=== PATIENT | male | born 1940 | race Caucasian/White ===

== ENCOUNTER → 2016-10-29 | Outpatient (CLI) | payer MEDICARE, BC ==
[2016-10-29 09:44] LABS: Anion Gap 12 mmol/L; Calcium 9.1 mg/dL (8.4-10.2); Carbon Dioxide 21 mmol/L (22-30); Chloride 109 mmol/L (98-107); Cholesterol 127 mg/dL (<200); Glucose 131 mg/dL (74-99); HDL Cholesterol 28 mg/dL (40-60); Non-African American GFR(MDRD) >60 (>60 ml/min/1.73 sqM); Sodium 142 mmol/L (137-145); Total Protein 7.3 g/dL (6.3-8.2); Triglycerides 121 mg/dL (<150)
[2016-10-29 09:51] LABS: ALT 34 U/L (21-72); Blood Urea Nitrogen 15 mg/dL (9-20); Potassium 4.2 mmol/L (3.5-5.1)
[2016-10-29 09:52] LABS: AST 27 U/L (17-59); Alkaline Phosphatase 101 U/L (38-126)
== END | disposition home or self-care (01) ==
LOC: LABWHC1 08:25
PROVIDERS: ATTEND Internal Medicine Interventional Cardiology
DX: E78.2 Mixed hyperlipidemia (principal)
CPT/HCPCS: 36415; 80053; 80061

== ENCOUNTER 2017-03-10 07:51 | Day surgery (SDC) | payer MEDICARE, BC ==
[2017-03-08 15:41] VITALS: BMI 48.4
[~2017-03-10 07:51] MED LIST: LACTATED RINGERS 1,000 ML IV SCH
[2017-03-10] MEDS ORDERED: LACTATED RINGERS 1,000 ML IV ONE (08:17)
[2017-03-10 08:23] VITALS: RESP 18; TEMP 98.1
[2017-03-10 08:35] LABS: Glucose,Whole Blood 118 mg/dL (75-99)
[2017-03-10] MEDS ORDERED: PROPOFOL 10 MG/ML 20 ML VIAL IV ONE ×2 (08:37→09:39)
[2017-03-10] MEDS ORDERED: LIDOCAINE 1% INJ 10MG/ML (20 ML MDV) ONE (08:37)
--- NOTE | 2017-03-10 08:38 | P.GSHP ---
History of Present Illness H&P Date: 03/10/17 CHIEF COMPLAINT: Colon screen HISTORY OF PRESENT ILLNESS: The patient is a 76-year-old male who presents for colon screen. Lower endoscopy was offered for further evaluation and management. PAST MEDICAL HISTORY: Please see list. PAST SURGICAL HISTORY: Please see list. MEDICATIONS: Please see list. ALLERGIES: Please see list. SOCIAL HISTORY: No illicit drug use FAMILY HISTORY: No reports of Crohn disease or ulcerative colitis. REVIEW OF ORGAN SYSTEMS: CONSTITUTIONAL: No reports of fevers or chills. PHYSICAL EXAM: VITAL SIGNS: Stable GENERAL: Well-developed pleasant in no acute distress. HEENT: No scleral icterus. Extraocular movements grossly intact. Moist buccal mucosa. NECK: Supple without lymphadenopathy. CHEST: Unlabored respirations. Equal bilateral excursions. CARDIOVASCULAR: Regular rate and rhythm. Distal 2+ pulses. ABDOMEN: Soft, nontender, nondistended. MUSCULOSKELETAL: No clubbing, cyanosis, or edema. ASSESSMENT: 1. Colon screen. PLAN: 1. Recommend proceeding with a lower endoscopy Past Medical History Past Medical History: COPD, Diabetes Mellitus, Pneumonia, Prostate Disorder, Sleep Apnea/CPAP/BIPAP Additional Past Medical History / Comment(s): USES O2 [place] PRN, leaky hearrt valve , rt inguinal hernia, History of Any Multi-Drug Resistant Organisms: None Reported Past Surgical History: Cholecystectomy, Hernia Repair, Joint Replacement, Tonsillectomy Additional Past Surgical History / Comment(s): LEFT KNEE replacement Past Anesthesia/Blood Transfusion Reactions: No Reported Reaction Smoking Status: Former smoker - Past Family History Mother Family Medical History: Cancer Additional Family Medical History / Comment(s): BRAIN Medications and Allergies Home Medications Medication Instructions Recorded Confirmed Type Albuterol Sulfate [Proventil Hfa] 2 puff INHALATION DIRECTED PRN 11/22/14 History Aspirin 81 mg PO DAILY 11/22/14 03/10/17 History Budesonide-Formot 160-4.5 Mcg 2 puff INHALATION DAILY PRN 11/22/14 03/10/17 History [Symbicort 160-4.5 Mcg Inhaler] Diltiazem HCl 120 mg PO DAILY 11/22/14 03/10/17 History Finasteride [Proscar] 5 mg PO DAILY 11/22/14 03/10/17 History Furosemide [Lasix] 40 mg PO DAILY 11/22/14 03/10/17 History Multivitamins, Thera [Multivitamin] 1 tab PO DAILY 11/22/14 03/10/17 History Tiotropium [place] [Spiriva] 1 applic INHALATION DAILY 11/22/14 03/10/17 History Atorvastatin [Lipitor] 20 mg PO DAILY 03/08/17 03/10/17 History Glucosam/Wil[place]-Msm1/C/Storm/Bosw 1 each PO DAILY 03/08/17 03/10/17 History [Glucosamine-Chondroitin Tablet] Mv-Mn/C/Glutamin/Lysin/[id number] 1 each PO DAILY 03/08/17 03/10/17 History [Airborne Gummies] metFORMIN HCL [Glucophage] 1,000 mg PO W/SUPPER 03/08/17 03/10/17 History Allergies Allergy/AdvReac Type Severity Reaction Status Date / Time No Known Allergies Allergy Verified 03/10/17 08:25 Surgical - Exam Vital Signs Temp Pulse Resp BP Pulse Ox 98.1 F 80 18 182/80 91 L 03/10/17 08:22 03/10/17 08:22 03/10/17 08:22 03/10/17 08:22 03/10/17 08:22 Results - Labs Abnormal Lab Results - Last 24 Hours (Table) 03/10/17 Range/Units 08:28 POC Glucose (mg/dL) 118 H (75-99) mg/dL
--- NOTE | 2017-03-10 09:03 | P.PCN ---
Date of Procedure: 03/10/17 Description of Procedure: PREOPERATIVE DIAGNOSIS: Colonoscopy screening. POSTOPERATIVE DIAGNOSIS: Colonoscopy screening. Multiple tubular adenomas throughout the colon. External hemorrhoids, grade 2. Sigmoid diverticulosis with active diverticulitis. Lipoma along the left buttock, 3 cm. OPERATION:AC Colonoscopy to the ileocecal valve and appendiceal orifice. Colonoscopy with multiple snare polypectomies. SURGEON: Larisa Rodriguez MD. ANESTHESIA: MAC. INDICATIONS: The patient is a 76-year-old male who presents for colonoscopy screening. Benefits and risks were described and informed consent was obtained. DESCRIPTION OF PROCEDURE: The patient had undergone Gatorade, MiraLAX and Dulcolax prep. He had been brought into the operating room and laid in the left lateral decubitus position. After adequate intravenous sedation, the rectum was examined with 2% lidocaine jelly. External hemorrhoids were encountered. An external lipoma along the gluteal cleft left side was found of 3 cm in size along the subcutaneous tissue. The prostate was smooth and within normal limits. The rectal tone was within normal limits. No lesions were palpated in the rectal vault. An Olympus colonoscope was advanced until the ileocecal valve and appendiceal orifice were clearly viewed. The prep was fair with visualization of the mucosal folds. Large-mouth sigmoid diverticulosis with resolving acute diverticulitis was found. Large tubular adenoma of 1.5-2 cm with snare polypectomy to completion on the ascending colon along its stalk. A 5 mm adenoma was also snare polypectomy along the ascending colon to completion. The colon was desufflated. The patient had tolerated the procedure well. Withdrawal time was over 6 minutes. FINDINGS: External hemorrhoids, grade 2. Lipoma along the left gluteal cuff, 3 cm. No arteriovenous malformations. Acute resolving sigmoid diverticulitis. Removal of 2 polyps from the proximal, mid transverse colon and descending colon : - Large tubular adenoma of 1.5-2 cm with snare polypectomy to completion on the ascending colon along its stalk. - A 5 mm adenoma was also snare polypectomy along the ascending colon to completion. RECOMMENDATIONS: Repeat colonoscopy in one year, 2018. Ciprofloxacin and Flagyl for diverticulitis. Plan - Discharge Summary New Discharge Prescriptions: No Action Tiotropium [place] [Spiriva] 1 applic INHALATION DAILY Multivitamins, Thera [Multivitamin] 1 tab PO DAILY Furosemide [Lasix] 40 mg PO DAILY Finasteride [Proscar] 5 mg PO DAILY Diltiazem HCl 120 mg PO DAILY Budesonide-Formot 160-4.5 Mcg [Symbicort 160-4.5 Mcg Inhaler] 2 puff INHALATION DAILY PRN PRN Reason: Shortness Of Breath Aspirin 81 mg PO DAILY Albuterol Sulfate [Proventil Hfa] 2 puff INHALATION DIRECTED PRN PRN Reason: Shortness Of Breath metFORMIN HCL [Glucophage] 1,000 mg PO W/SUPPER Glucosam/Wilver-Msm1/C/Storm/Bosw [Glucosamine-Chondroitin Tablet] 1 each PO DAILY Atorvastatin [Lipitor] 20 mg PO DAILY Mv-Mn/C/Glutamin/Lysin/[id number] [Airborne Gummies] 1 each PO DAILY Discharge Medication List Albuterol Sulfate [Proventil Hfa] 2 puff INHALATION DIRECTED PRN 11/22/14 [ History] Aspirin 81 mg PO DAILY 11/22/14 [History] Budesonide-Formot 160-4.5 Mcg [Symbicort 160-4.5 Mcg Inhaler] 2 puff INHALATION DAILY PRN 11/22/14 [History] Diltiazem HCl 120 mg PO DAILY 11/22/14 [History] Finasteride [Proscar] 5 mg PO DAILY 11/22/14 [History] Furosemide [Lasix] 40 mg PO DAILY 11/22/14 [History] Multivitamins, Thera [Multivitamin] 1 tab PO DAILY 11/22/14 [History] Tiotropium [place] [Spiriva] 1 applic INHALATION DAILY 11/22/14 [History] Atorvastatin [Lipitor] 20 mg PO DAILY 03/08/17 [History] Glucosam/[place]-Msm1/C/Storm/Bosw [Glucosamine-Chondroitin Tablet] 1 each PO DAILY 03/08/17 [History] Mv-Mn/C/Glutamin/Lysin/[id number] [Airborne Gummies] 1 each PO DAILY 03/08/17 [ History] metFORMIN HCL [Glucophage] 1,000 mg PO W/SUPPER 03/08/17 [History]
[2017-03-10 09:24] VITALS: BP 158/77; PULSE 67
== END 2017-03-10 09:55 | disposition home or self-care (01) ==
LOC: ORWHC2ENDO 07:51
PROVIDERS: ATTEND Surgery Plastic and Reconstructive Surgery
DX: Z12.11 Encounter for screening for malignant neoplasm of colon (principal); D12.2 Benign neoplasm of ascending colon; K57.30 Diverticulosis of large intestine without perforation or abscess without bleeding; K64.1 Second degree hemorrhoids; D17.1 Benign lipomatous neoplasm of skin and subcutaneous tissue of trunk; I10 Essential (primary) hypertension; E78.5 Hyperlipidemia, unspecified; J44.9 Chronic obstructive pulmonary disease, unspecified; G47.33 Obstructive sleep apnea (adult) (pediatric); N40.0 Benign prostatic hyperplasia without lower urinary tract symptoms; E11.9 Type 2 diabetes mellitus without complications; Z79.84 Long term (current) use of oral hypoglycemic drugs; K21.9 Gastro-esophageal reflux disease without esophagitis; Z87.891 Personal history of nicotine dependence; Z79.82 Long term (current) use of aspirin; Z79.51 Long term (current) use of inhaled steroids; Z79.899 Other long term (current) drug therapy
CPT/HCPCS: 88305; 45385; J2001; J2704

== ENCOUNTER → 2017-10-25 | Outpatient (CLI) | payer MEDICARE, BC ==
[2017-10-25 08:53] LABS: ALT 32 U/L (21-72); AST 25 U/L (17-59); Albumin 4.2 g/dL (3.5-5.0); Alkaline Phosphatase 108 U/L (38-126); Anion Gap 13 mmol/L; Blood Urea Nitrogen 13 mg/dL (9-20); Calcium 8.9 mg/dL (8.4-10.2); Carbon Dioxide 25 mmol/L (22-30); Chloride 106 mmol/L (98-107); Cholesterol 100 mg/dL (<200); Glucose 110 mg/dL (74-99); HDL Cholesterol 27 mg/dL (40-60); LDL Cholesterol,Calculated 57 mg/dL (0-99); Potassium 4.2 mmol/L (3.5-5.1); Sodium 144 mmol/L (137-145); Total Bilirubin 0.8 mg/dL (0.2-1.3); Total Protein 6.9 g/dL (6.3-8.2); Triglycerides 80 mg/dL (<150)
== END | disposition home or self-care (01) ==
LOC: LABWHC1 08:05
PROVIDERS: ATTEND Internal Medicine Interventional Cardiology
DX: E78.2 Mixed hyperlipidemia (principal)
CPT/HCPCS: 36415; 80053; 80061

== ENCOUNTER 2018-05-25 07:49 | Day surgery (SDC) | payer MEDICARE, BC ==
[2018-05-20 15:18] VITALS: BMI 50.0
[~2018-05-25 07:49] MED LIST changes: +LIDOCAINE 1% 20 ML VIAL (10MG/ML) FOR IV START INTRADERMA PRN
[2018-05-25 08:23] VITALS: RESP 16; TEMP 97.2
[2018-05-25 08:39] LABS: Glucose,Whole Blood 142 mg/dL (75-99)
--- NOTE | 2018-05-25 08:45 | P.GSHP ---
History of Present Illness H&P Date: 05/25/18 CHIEF COMPLAINT: Colon screen HISTORY OF PRESENT ILLNESS: The patient is a 77-year-old male who presents for colon screen. Lower endoscopy was offered for further evaluation and management. PAST MEDICAL HISTORY: Please see list. PAST SURGICAL HISTORY: Please see list. MEDICATIONS: Please see list. ALLERGIES: Please see list. SOCIAL HISTORY: No illicit drug use FAMILY HISTORY: No reports of Crohn disease or ulcerative colitis. REVIEW OF ORGAN SYSTEMS: CONSTITUTIONAL: No reports of fevers or chills. PHYSICAL EXAM: VITAL SIGNS: Stable GENERAL: Well-developed pleasant in no acute distress. HEENT: No scleral icterus. Extraocular movements grossly intact. Moist buccal mucosa. NECK: Supple without lymphadenopathy. CHEST: Unlabored respirations. Equal bilateral excursions. CARDIOVASCULAR: Regular rate and rhythm. Distal 2+ pulses. ABDOMEN: Soft, nontender, nondistended. MUSCULOSKELETAL: No clubbing, cyanosis, or edema. ASSESSMENT: 1. Colon screen. PLAN: 1. Recommend proceeding with a lower endoscopy Past Medical History Past Medical History: COPD, Diabetes Mellitus, Pneumonia, Prostate Disorder, Sleep Apnea/CPAP/BIPAP Additional Past Medical History / Comment(s): USES O2 [place] PRN, leaky heart valve , rt inguinal hernia, has cpap History of Any Multi-Drug Resistant Organisms: None Reported Past Surgical History: Cholecystectomy, Hernia Repair, Joint Replacement, Tonsillectomy Additional Past Surgical History / Comment(s): LEFT KNEE replacement, [place] cataract Past Anesthesia/Blood Transfusion Reactions: No Reported Reaction Smoking Status: Former smoker - Past Family History Mother Family Medical History: Cancer Additional Family Medical History / Comment(s): BRAIN Medications and Allergies Home Medications Medication Instructions Recorded Confirmed Type Albuterol Sulfate [Proventil Hfa] 2 puff INHALATION DIRECTED PRN 11/22/1411/05 History Budesonide-Formot 160-4.5 Mcg 2 puff INHALATION DAILY PRN 11/22/14 05/25/18 History [Symbicort 160-4.5 Mcg Inhaler] Diltiazem HCl 120 mg PO DAILY 11/22/14 05/25/18 History Finasteride [Proscar] 5 mg PO DAILY 11/22/14 05/25/18 History Furosemide [Lasix] 40 mg PO DAILY 11/22/14 05/25/18 History Multivitamins, Thera [Multivitamin] 1 tab PO DAILY 11/22/14 05/25/18 History Tiotropium [place] [Spiriva] 1 applic INHALATION DAILY 11/22/14 05/25/18 History Atorvastatin [Lipitor] 20 mg PO DAILY 03/08/17 05/25/18 History Glucosam/[place]-Msm1/C/Storm/Bosw 1 each PO DAILY 03/08/17 05/25/18 History [Glucosamine-Chondroitin Tablet] Mv-Mn/C/Glutamin/Lysin/Bkhv709 1 each PO DAILY 03/08/17 05/25/18 History [Airborne Gummies] metFORMIN HCL [Glucophage] 1,000 mg PO W/SUPPER 03/08/17 05/25/18 History Allergies Allergy/AdvReac Type Severity Reaction Status Date / Time No Known Allergies Allergy Verified 05/25/18 08:20 Surgical - Exam Vital Signs Temp Pulse Resp BP Pulse Ox 97.2 F L 66 16 138/61 94 L 05/25/18 08:20 05/25/18 08:20 05/25/18 08:20 05/25/18 08:20 05/25/18 08:20 Results - Labs Abnormal Lab Results - Last 24 Hours (Table) 05/25/18 Range/Units 08:38 POC Glucose (mg/dL) 142 H (75-99) mg/dL
[2018-05-25] MEDS ORDERED: PROPOFOL 10 MG/ML 20 ML VIAL IV ONE (08:52)
--- NOTE | 2018-05-25 09:25 | P.PCN ---
Date of Procedure: 05/25/18 Description of Procedure: PREOPERATIVE DIAGNOSIS: History of high-risk colon polyps POSTOPERATIVE DIAGNOSIS: History of high-risk colon polyps Multiple tubular adenomas throughout the colon. External hemorrhoids, grade 2. Sigmoid diverticulosis with active diverticulitis. Lipoma along the left buttock, 3 cm. OPERATION:AC Colonoscopy to the ileocecal valve Colonoscopy with hot snare polypectomy, ascending colon Colonoscopy with cold forceps biopsy, sigmoid colon SURGEON: Larisa Rodriguez MD. ANESTHESIA: MAC. INDICATIONS: The patient is a 77-year-old male who presents with high-risk large adenoma 1 year ago. He now presents for surveillance. Benefits and risks were described and informed consent was obtained. DESCRIPTION OF PROCEDURE: The patient had undergone Gatorade, MiraLAX and Dulcolax prep. He had been brought into the operating room and laid in the left lateral decubitus position. After adequate intravenous sedation, the rectum was examined with 2% lidocaine jelly. External hemorrhoids were encountered. An external lipoma along the gluteal cleft left side was found of 3 cm in size along the subcutaneous tissue. The prostate was smooth and within normal limits. The rectal tone was within normal limits. No lesions were palpated in the rectal vault. An Olympus colonoscope was advanced until the ileocecal valve was clearly viewed. The prep was fair with visualization of the mucosal folds. Large-mouth sigmoid diverticulosis with resolving acute diverticulitis was found. Tubular adenoma of 8mm was hot snare polypectomy to completion at the ascending colon. A 5 mm adenoma was cold forceps biopsies at 20 cm from the anal verge. The colon was desufflated. The patient had tolerated the procedure well. Withdrawal time was over 6 minutes. FINDINGS: External hemorrhoids, grade 2. Lipoma along the left gluteal cuff, 3 cm. No arteriovenous malformations. Resolving inflammation from sigmoid diverticulitis Removal of 2 polyps: - Large tubular adenoma of 8 mm with snare polypectomy to completion on the ascending colon - A 5 mm adenoma was also cold forceps biopsy at 20 cm from the anal verge RECOMMENDATIONS: Repeat colonoscopy in 3 years, 2020 Ciprofloxacin and Flagyl for diverticulitis. Plan - Discharge Summary New Discharge Prescriptions: No Action Tiotropium [place] [Spiriva] 1 applic INHALATION DAILY Multivitamins, Thera [Multivitamin] 1 tab PO DAILY Furosemide [Lasix] 40 mg PO DAILY Finasteride [Proscar] 5 mg PO DAILY Diltiazem HCl 120 mg PO DAILY Budesonide-Formot 160-4.5 Mcg [Symbicort 160-4.5 Mcg Inhaler] 2 puff INHALATION DAILY PRN PRN Reason: Shortness Of Breath Albuterol Sulfate [Proventil Hfa] 2 puff INHALATION DIRECTED PRN PRN Reason: Shortness Of Breath metFORMIN HCL [Glucophage] 1,000 mg PO W/SUPPER Glucosam/[place]-Msm1/C/Storm/Bosw [Glucosamine-Chondroitin Tablet] 1 each PO DAILY Atorvastatin [Lipitor] 20 mg PO DAILY Mv-Mn/C/Glutamin/Lysin/[id number] [Airborne Gummies] 1 each PO DAILY Discharge Medication List Albuterol Sulfate [Proventil Hfa] 2 puff INHALATION DIRECTED PRN 11/22/14 [ History] Budesonide-Formot 160-4.5 Mcg [Symbicort 160-4.5 Mcg Inhaler] 2 puff INHALATION DAILY PRN 11/22/14 [History] Diltiazem HCl 120 mg PO DAILY 11/22/14 [History] Finasteride [Proscar] 5 mg PO DAILY 11/22/14 [History] Furosemide [Lasix] 40 mg PO DAILY 11/22/14 [History] Multivitamins, Thera [Multivitamin] 1 tab PO DAILY 11/22/14 [History] Tiotropium [place] [Spiriva] 1 applic INHALATION DAILY 11/22/14 [History] Atorvastatin [Lipitor] 20 mg PO DAILY 03/08/17 [History] Glucosam/[place]-Msm1/C/Storm/Bosw [Glucosamine-Chondroitin Tablet] 1 each PO DAILY 03/08/17 [History] Mv-Mn/C/Glutamin/Lysin/Zkty482 [Airborne Gummies] 1 each PO DAILY 03/08/17 [ History] metFORMIN HCL [Glucophage] 1,000 mg PO W/SUPPER 03/08/17 [History]
[2018-05-25 09:37] VITALS: BP 153/71; PULSE 56
== END 2018-05-25 10:10 | disposition home or self-care (01) ==
LOC: ORWHC2ENDO 07:49
PROVIDERS: ATTEND Surgery Plastic and Reconstructive Surgery
DX: Z12.11 Encounter for screening for malignant neoplasm of colon (principal); K63.5 Polyp of colon; D12.2 Benign neoplasm of ascending colon; K64.4 Residual hemorrhoidal skin tags; K57.30 Diverticulosis of large intestine without perforation or abscess without bleeding; K57.32 Diverticulitis of large intestine without perforation or abscess without bleeding; D17.1 Benign lipomatous neoplasm of skin and subcutaneous tissue of trunk; Z86.010 Personal history of colon polyps; J44.9 Chronic obstructive pulmonary disease, unspecified; E11.9 Type 2 diabetes mellitus without complications; N42.9 Disorder of prostate, unspecified; I38 Endocarditis, valve unspecified; G47.33 Obstructive sleep apnea (adult) (pediatric); E66.01 Morbid (severe) obesity due to excess calories; Z68.43 Body mass index [BMI] 50.0-59.9, adult; Z99.89 Dependence on other enabling machines and devices; Z79.84 Long term (current) use of oral hypoglycemic drugs; Z79.899 Other long term (current) drug therapy; Z96.652 Presence of left artificial knee joint; Z90.49 Acquired absence of other specified parts of digestive tract; Z87.891 Personal history of nicotine dependence
CPT/HCPCS: 88305; 45380; 45385; J2704

== ENCOUNTER 2020-04-15 10:10 | Emergency (ER) | payer MEDICARE, BC ==
[2020-04-15 10:22] VITALS: RESP 18; TEMP 98.3
[2020-04-15] MEDS ORDERED: SODIUM CHLORIDE 0.9% 1,000 ML IV STA (10:33)
[2020-04-15] MEDS ORDERED: HYDROmorphone 1 MG/ML 1 ML SYRINGE IVP STA (10:34)
--- NOTE | 2020-04-15 10:38 | ED ---
General Adult HPI - General Chief complaint: Abdominal Pain Stated complaint: rib strain Time Seen by Provider: 04/15/20 10:24 Source: patient, family, RN notes reviewed Mode of arrival: wheelchair Limitations: no limitations - History of Present Illness Initial comments: patient is a pleasant 79-year-old male presenting to the emergency department with concerns for left-sided rib area strain. Patient was putting away a kayak 3 or 4 days ago and did feel a pull on his left lateral chest. Patient has had symptoms since that time. Symptoms are positional. Patient states there may be slight increase in discomfort with deep breaths. Otherwise patient denies dyspnea. Discomfort is left lateral ribs. Patient denies any abdominal discomfort. Patient states occasionally will radiate to the back as well. No leg pain or leg swelling. Patient believes he had some hematuria this morning. - Related Data Home Medications Medication Instructions Recorded Confirmed Diltiazem HCl 120 mg PO DAILY 11/22/14 04/15/20 Finasteride [Proscar] 5 mg PO DAILY 11/22/14 04/15/20 Multivitamins, Thera [Multivitamin] 1 tab PO DAILY 11/22/14 04/15/20 Glucosam/[place]-Msm1/C/Storm/Bosw 1 tab PO DAILY 03/08/17 04/15/20 [Glucosamine-Chondroitin Tablet] Mv-Mn/C/Glutamin/Lysin/Kyms919 1 tab PO DAILY 03/08/17 04/15/20 [Airborne Gummies] metFORMIN HCL [Glucophage] 500 mg PO W/SUPPER 03/08/17 04/15/20 Albuterol Sulfate [Proair Hfa] 1 - 2 puff INHALATION RT-Q6H PRN 04/15/20 04/15/20 Potassium Chloride [Klor-Con 20] 20 meq PO DAILY 04/15/20 04/15/20 Tiotropium [place] [Spiriva 1 spray INHALATION RT-DAILY 04/15/20 04/15/20 Respimat] lisinopriL [Zestril] 2.5 mg PO DAILY 04/15/20 04/15/20 Previous Rx's Medication Instructions Recorded Cyclobenzaprine [Flexeril] 10 mg PO TID PRN #12 tablet 04/15/20 Allergies Allergy/AdvReac Type Severity Reaction Status Date / Time No Known Allergies Allergy Verified 04/15/20 11:37 Review of Systems ROS Statement: Those systems with pertinent positive or pertinent negative responses have been documented in the HPI. ROS Other: All systems not noted in ROS Statement are negative. Constitutional: Denies: fever Eyes: Denies: eye pain ENT: Denies: ear pain Respiratory: Denies: cough, dyspnea Cardiovascular: Reports: as per HPI Endocrine: Denies: fatigue Gastrointestinal: Denies: abdominal pain, nausea, vomiting Genitourinary: Reports: as per HPI. Denies: dysuria Musculoskeletal: Denies: arthralgia Skin: Denies: rash Neurological: Denies: weakness Past Medical History Past Medical History: COPD Additional Past Medical History / Comment(s): USES O2 [place] PRN, leaky hearrt valve , rt inguinal hernia, History of Any Multi-Drug Resistant Organisms: None Reported Past Surgical History: Cholecystectomy, Hernia Repair, Joint Replacement, Tonsillectomy Additional Past Surgical History / Comment(s): LEFT KNEE replacement Past Anesthesia/Blood Transfusion Reactions: No Reported Reaction Past Psychological History: No Psychological Hx Reported Smoking Status: Never smoker Past Alcohol Use History: None Reported Past Drug Use History: None Reported - Past Family History Mother Family Medical History: Cancer Additional Family Medical History / Comment(s): BRAIN General Exam Limitations: no limitations General appearance: alert, in no apparent distress Head exam: Present: normocephalic Eye exam: Present: normal appearance Neck exam: Present: normal inspection Respiratory exam: Present: normal lung sounds bilaterally, chest wall tenderness (left lower lateral ribs with some tenderness) Cardiovascular Exam: Present: regular rate, normal rhythm Expanded Peripheral pulses: 2+: Dorsalis Pedis (R), Dorsalis Pedis (L) GI/Abdominal exam: Present: soft. Absent: distended, tenderness, guarding, rebound, rigid Extremities exam: Present: normal inspection Neurological exam: Present: alert Psychiatric exam: Present: normal affect, normal mood Skin exam: Present: normal color Course Vital Signs 04/15/20 04/15/20 04/15/20 10:17 11:04 13:06 Temperature 98.3 F Pulse Rate 61 60 80 Respiratory 18 18 18 Rate Blood Pressure 183/94 167/73 144/82 O2 Sat by Pulse 95 95 98 Oximetry EKG Findings - EKG Comments: EKG Findings:: Normal sinus rhythm at 62. OH 182. QRS 106. QT 386. QTc 381. Normal axis. Normal QRS. Nonspecific T waves. Medical Decision Making - Medical Decision Making patient again reevaluated and remained symptom-free. Patient and family updated on results. They are up dated also on limitations with cardiac testing. Patient does not havetypical cardiac symptoms. In addition symptoms have been present for several days and are not any worsetoday than what they have been. Patient and I both feel comfortable with discharge. He is agreeable to follow- up with his primary care physician and urology. - Lab Data Result diagrams: 04/15/20 10:58 04/15/20 10:58 Lab Results 04/15/20 04/15/20 04/15/20 Range/Units 10:58 10:58 10:58 WBC 7.4 (3.8-10.6) k/uL RBC 5.07 (4.30-5.90) m/uL Hgb 15.8 (13.0-17.5) gm/dL Hct 47.5 (39.0-53.0) % MCV 93.6 (80.0-100.0) fL MCH 31.1 (25.0-35.0) pg MCHC 33.3 (31.0-37.0) g/dL RDW 13.3 (11.5-15.5) % Plt Count 209 (150-450) k/uL Neutrophils % 65 % Lymphocytes % 24 % Monocytes % 6 % Eosinophils % 2 % Basophils % 1 % Neutrophils # 4.8 (1.3-7.7) k/uL Lymphocytes # 1.8 (1.0-4.8) k/uL Monocytes # 0.4 (0-1.0) k/uL Eosinophils # 0.2 (0-0.7) k/uL Basophils # 0.1 (0-0.2) k/uL PT 10.7 (9.0-12.0) sec INR 1.0 (<1.2) APTT 25.6 (22.0-30.0) sec D-Dimer 0.42 (<0.60) mg/L FEU Sodium (137-145) mmol/L Potassium (3.5-5.1) mmol/L Chloride (98-107) mmol/L Carbon Dioxide (22-30) mmol/L Anion Gap mmol/L BUN (9-20) mg/dL Creatinine (0.66-1.25) mg/dL Est GFR (CKD-EPI)AfAm (>60 ml/min/1.73 sqM) Est GFR (CKD-EPI)NonAf (>60 ml/min/1.73 sqM) Glucose (74-99) mg/dL Calcium (8.4-10.2) mg/dL Total Bilirubin (0.2-1.3) mg/dL AST (17-59) U/L ALT (4-49) U/L Alkaline Phosphatase (38-126) U/L Creatine Kinase (55-170) U/L Troponin I (0.000-0.034) ng/mL Total Protein (6.3-8.2) g/dL Albumin (3.5-5.0) g/dL Amylase (30-110) U/L Lipase (23-300) U/L Urine Color Light Yellow Urine Appearance Clear (Clear) Urine pH 6.5 (5.0-8.0) Ur Specific [place] 1.009 (1.001-1.035) Urine Protein Negative (Negative) Urine Glucose (UA) Negative (Negative) Urine Ketones Negative (Negative) Urine Blood Large H (Negative) Urine Nitrite Negative (Negative) Urine Bilirubin Negative (Negative) Urine Urobilinogen <2.0 (<2.0) mg/dL Ur Leukocyte Esterase Negative (Negative) Urine RBC 155 H (0-5) /hpf Urine WBC 1 (0-5) /hpf Ur Squamous Epith Cells <1 (0-4) /hpf Urine Bacteria Rare H (None) /hpf Urine Mucus Rare H (None) /hpf 04/15/20 04/15/20 Range/Units 10:58 10:58 WBC (3.8-10.6) k/uL RBC (4.30-5.90) m/uL Hgb (13.0-17.5) gm/dL Hct (39.0-53.0) % MCV (80.0-100.0) fL MCH (25.0-35.0) pg MCHC (31.0-37.0) g/dL RDW (11.5-15.5) % Plt Count (150-450) k/uL Neutrophils % % Lymphocytes % % Monocytes % % Eosinophils % % Basophils % % Neutrophils # (1.3-7.7) k/uL Lymphocytes # (1.0-4.8) k/uL Monocytes # (0-1.0) k/uL Eosinophils # (0-0.7) k/uL Basophils # (0-0.2) k/uL PT (9.0-12.0) sec INR (<1.2) APTT (22.0-30.0) sec D-Dimer (<0.60) mg/L FEU Sodium 139 (137-145) mmol/L Potassium 4.4 (3.5-5.1) mmol/L Chloride 106 (98-107) mmol/L Carbon Dioxide 22 (22-30) mmol/L Anion Gap 11 mmol/L BUN 16 (9-20) mg/dL Creatinine 0.78 (0.66-1.25) mg/dL Est GFR (CKD-EPI)AfAm >90 (>60 ml/min/1.73 sqM) Est GFR (CKD-EPI)NonAf 87 (>60 ml/min/1.73 sqM) Glucose 134 H (74-99) mg/dL Calcium 9.4 (8.4-10.2) mg/dL Total Bilirubin 0.9 (0.2-1.3) mg/dL AST 37 (17-59) U/L ALT 35 (4-49) U/L Alkaline Phosphatase 107 (38-126) U/L Creatine Kinase 117 (55-170) U/L Troponin I <0.012 (0.000-0.034) ng/mL Total Protein 7.3 (6.3-8.2) g/dL Albumin 4.2 (3.5-5.0) g/dL Amylase 76 (30-110) U/L Lipase 140 (23-300) U/L Urine Color Urine Appearance (Clear) Urine pH (5.0-8.0) Ur Specific [place] (1.001-1.035) Urine Protein (Negative) Urine Glucose (UA) (Negative) Urine Ketones (Negative) Urine Blood (Negative) Urine Nitrite (Negative) Urine Bilirubin (Negative) Urine Urobilinogen (<2.0) mg/dL Ur Leukocyte Esterase (Negative) Urine RBC (0-5) /hpf Urine WBC (0-5) /hpf Ur Squamous Epith Cells (0-4) /hpf Urine Bacteria (None) /hpf Urine Mucus (None) /hpf Disposition Clinical Impression: Muscle strain Disposition: HOME SELF-CARE Condition: Stable Instructions (If sedation given, give patient instructions): Muscle Strain (ED), Chest Wall Pain (ED) Additional Instructions: please follow-up with primary care physician in the next day or 2 for recheck. Please also follow-up with urologist, number provided. Return for increased pain, difficult to breathing, chest pain, worsening or changing symptoms, fevers or other concerns.Prescriptions sent to your pharmacy in [facility] Prescriptions: Cyclobenzaprine [Flexeril] 10 mg PO TID PRN #12 tablet PRN Reason: Pain Is patient prescribed a controlled substance at d/c from ED?: No Referrals: Sathya Finn DO [Primary Care Provider] - 1-2 days Og Zamora MD [STAFF PHYSICIAN] - 1-2 days Time of Disposition: 13:30
[2020-04-15 11:20] LABS: Basophils # (A) 0.1 k/uL (0-0.2); Basophils % (A) 1 %; Eosinophils # (A) 0.2 k/uL (0-0.7); Eosinophils % (A) 2 %; HCT 47.5 % (39.0-53.0); HGB 15.8 gm/dL (13.0-17.5); Lymphocytes # (A) 1.8 k/uL (1.0-4.8); Lymphocytes % (A) 24 %; MCH 31.1 pg (25.0-35.0); MCHC 33.3 g/dL (31.0-37.0); MCV 93.6 fL (80.0-100.0); Mean Platelet Volume 6.9; Monocytes # (A) 0.4 k/uL (0-1.0); Monocytes % (A) 6 %; Neutrophils # (A) 4.8 k/uL (1.3-7.7); Neutrophils % (A) 65 %; Platelet Count 209 k/uL (150-450); RBC 5.07 m/uL (4.30-5.90); RDW 13.3 % (11.5-15.5); WBC 7.4 k/uL (3.8-10.6)
[2020-04-15 11:23] LABS: Appearance,Urine Clear (Clear); Bacteria,Urine Rare /hpf; Bilirubin,Urine Negative (Negative); Blood,Urine Large (Negative); Color,Urine Light Yellow; Glucose,Urine (UA) Negative (Negative); Ketones,Urine Negative (Negative); Leukocyte Esterase,Urine Negative (Negative); Mucus,Urine Rare /hpf; Nitrite,Urine Negative (Negative); PH, Urine 6.5 (5.0-8.0); Protein,Urine Negative (Negative); RBC,Urine 155 /hpf (0-5); Specific Gravity,Urine 1.009 (1.001-1.035); Squamous Epithelial Cell,Urine <1 /hpf (0-4); Urobilinogen,Urine <2.0 mg/dL (<2.0); WBC,Urine 1 /hpf (0-5)
--- NOTE | 2020-04-15 11:24 | XR ---
EXAMINATION TYPE: XR chest 2V DATE OF EXAM: 04/15/2020 CLINICAL HISTORY: abdominal pain. TECHNIQUE: Frontal and lateral view of the chest. COMPARISON: 05/06/2013 chest radiograph FINDINGS: Cardiomegaly. Redemonstrated background interstitial prominence. Pulmonary vasculature is normal. There is no focal air space opacity, pleural effusion, or pneumothorax seen. Degenerative lisa nges of the spine. IMPRESSION: Cardiomegaly. No acute cardiopulmonary process.
--- NOTE | 2020-04-15 11:25 | XR ---
EXAMINATION TYPE: XR KUB DATE OF EXAM: 04/15/2020 11:18 AM CLINICAL HISTORY: Abdominal pain TECHNIQUE: Upright images of the abdomen and pelvis were obtained COMPARISON: None. FINDINGS: Right upper quadrant surgical clips. Scattered gas is seen in non-distended small bowel loo ps. Gas and fecal material is seen in non-distended colon. There is no visceromegaly, pneumoperitoneu m, or abnormal calcification appreciated. The lung bases are clear. Degenerative changes of the spine . IMPRESSION: Nonspecific bowel gas pattern.
[2020-04-15 11:45] LABS: ALT 35 U/L (4-49); AST 37 U/L (17-59); African American GFR (CKD) >90 (>60 ml/min/1.73 sqM); Albumin 4.2 g/dL (3.5-5.0); Alkaline Phosphatase 107 U/L (38-126); Amylase 76 U/L (30-110); Anion Gap 11 mmol/L; Blood Urea Nitrogen 16 mg/dL (9-20); Calcium 9.4 mg/dL (8.4-10.2); Carbon Dioxide 22 mmol/L (22-30); Chloride 106 mmol/L (98-107); Creatine Kinase 117 U/L (55-170); Glucose 134 mg/dL (74-99); Non-African American GFR(CKD) 87 (>60 ml/min/1.73 sqM); Potassium 4.4 mmol/L (3.5-5.1); Sodium 139 mmol/L (137-145); Total Bilirubin 0.9 mg/dL (0.2-1.3); Total Protein 7.3 g/dL (6.3-8.2)
[2020-04-15 12:05] LABS: D-Dimer 0.42 mg/L FEU (<0.60); Partial Thromboplastin Time 25.6 sec (22.0-30.0); Prothrombin Time 10.7 sec (9.0-12.0)
[2020-04-15 13:07] VITALS: BP 144/82; PULSE 80
--- NOTE | 2020-04-15 13:21 | CT ---
EXAMINATION TYPE: CT abdomen pelvis wo con DATE OF EXAM: 04/15/2020 COMPARISON: None HISTORY: Left sided flank pain with hematuria. CT DLP: 1862 mGycm Automated exposure control for dose reduction was used. TECHNIQUE: Helical acquisition of images was performed from the lung bases through the pelvis. CONTRAST: Performed without Oral Contrast and without intravenous contrast. FINDINGS: LUNG BASES: No pericardial or pleural effusion. Calcified coronary artery disease. LIVER: Normal attenuation and size. BILIARY SYSTEM: Prominent common bile duct is likely within normal limits status post cholecystectomy . PANCREAS: No peripancreatic stranding or fluid collection. SPLEEN: Not enlarged. ADRENALS: Normal. KIDNEYS: No hydronephrosis, hydroureter, or urolithiasis. BOWEL: No obstruction. There is colonic diverticulosis. No acute diverticulitis. Normal appendix. PERITONEUM: No pneumoperitoneum. No free fluid. LYMPH NODES: No lymphadenopathy. PELVIS: Normal unenhanced appearance of the urinary bladder. Coarse prostatic calcifications. VASCULATURE: No abdominal aortic aneurysm. Infrarenal abdominal aortic ectasia measures up to 2.5 cm . MUSCULOSKELETAL: Degenerative changes of the spine. Decreased osseous mineralization. IMPRESSION: 1. No acute findings to explain patient's hematuria. No urolithiasis, hydronephrosis, or hydroureter. 2. Colonic diverticulosis. No acute diverticulitis.
== END 2020-04-15 13:57 | disposition home or self-care (01) ==
LOC: EC 10:10
DX: S29.011A Strain of muscle and tendon of front wall of thorax, initial encounter (principal); J44.9 Chronic obstructive pulmonary disease, unspecified; Z79.51 Long term (current) use of inhaled steroids; Z79.84 Long term (current) use of oral hypoglycemic drugs; Z79.899 Other long term (current) drug therapy; Z96.652 Presence of left artificial knee joint; Z90.49 Acquired absence of other specified parts of digestive tract; X58.XXXA Exposure to other specified factors, initial encounter
CPT/HCPCS: 36415; 93005; 85379; 80053; 82150; 82550; 83690; 84484; 85025; 85610; 85730; 81001; 71046; 74018; 74176; 99284; 96374; 96361 ×3; J1170

== ENCOUNTER 2021-06-09 06:22 | Day surgery (SDC) | payer MEDICARE, BC ==
[2021-06-02 09:38] VITALS: BMI 47.9
[~2021-06-09 06:22] MED LIST changes: +LIDOCAINE 1% (10MG/ML) FOR IV START INTRADERMA PRN; -LIDOCAINE 1% 20 ML VIAL (10MG/ML) FOR IV START INTRADERMA PRN
[2021-06-09 06:44] VITALS: RESP 18; TEMP 96.1
[2021-06-09 06:55] LABS: Glucose,Whole Blood 120 mg/dL (75-99)
[2021-06-09] MEDS ORDERED: PROPOFOL 10 MG/ML 20 ML VIAL IV ONE (07:15)
[2021-06-09] MEDS ORDERED: LIDOCAINE 1% INJ 10MG/ML (20 ML MDV) ONE (07:15)
--- NOTE | 2021-06-09 07:29 | P.GSHP ---
History of Present Illness H&P Date: 06/09/21 CHIEF COMPLAINT: Colon screen HISTORY OF PRESENT ILLNESS: The patient is a 80-year-old male who presents for colon screen. Lower endoscopy was offered for further evaluation and management. PAST MEDICAL HISTORY: Please see list. PAST SURGICAL HISTORY: Please see list. MEDICATIONS: Please see list. ALLERGIES: Please see list. SOCIAL HISTORY: No illicit drug use FAMILY HISTORY: No reports of Crohn disease or ulcerative colitis. REVIEW OF ORGAN SYSTEMS: CONSTITUTIONAL: No reports of fevers or chills. PHYSICAL EXAM: VITAL SIGNS: Stable GENERAL: Well-developed pleasant in no acute distress. HEENT: No scleral icterus. Extraocular movements grossly intact. Moist buccal mucosa. NECK: Supple without lymphadenopathy. CHEST: Unlabored respirations. Equal bilateral excursions. CARDIOVASCULAR: Regular rate and rhythm. Distal 2+ pulses. ABDOMEN: Soft, nontender, nondistended. MUSCULOSKELETAL: No clubbing, cyanosis, or edema. ASSESSMENT: 1. Colon screen. PLAN: 1. Recommend proceeding with a lower endoscopy Past Medical History Past Medical History: Cancer, COPD, Diabetes Mellitus, Hypertension, Sleep Apnea/CPAP/BIPAP Additional Past Medical History / Comment(s): leaky heart valve, rt inguinal he rnia, Bladder cancer 4 weeks ago. History of Any Multi-Drug Resistant Organisms: None Reported Past Surgical History: Cholecystectomy, Hernia Repair, Joint Replacement, Tonsillectomy Additional Past Surgical History / Comment(s): LEFT KNEE replacement, Bladder surgery Past Anesthesia/Blood Transfusion Reactions: No Reported Reaction Smoking Status: Former smoker - Past Family History Mother Family Medical History: Cancer Additional Family Medical History / Comment(s): BRAIN Medications and Allergies Home Medications Medication Instructions Recorded Confirmed Type Diltiazem HCl 120 mg PO QAM 11/22/14 06/05/21 History Finasteride [Proscar] 5 mg PO DAILY 11/22/14 06/05/21 History Multivitamins, Thera [Multivitamin] 1 tab PO DAILY 11/22/14 06/05/21 History Glucosam/Wilver-Msm1/C/Storm/Bosw 1 tab PO DAILY 03/08/17 06/05/21 History [Glucosamine-Chondroitin Tablet] Mv-Mn/C/Glutamin/Lysin/Hnup159 1 tab PO DAILY 03/08/17 06/05/21 History [Airborne Gummies] metFORMIN HCL [Glucophage] 500 mg PO W/SUPPER 03/08/17 06/05/21 History Albuterol Sulfate [Proair Hfa] 1 - 2 puff INHALATION RT-Q6H PRN 04/15/20 06/09/21 History Cyclobenzaprine [Flexeril] 10 mg PO TID PRN #12 tablet 04/15/20 06/05/21 Rx Potassium Chloride [Klor-Con 20] 20 meq PO DAILY 04/15/20 06/05/21 History Tiotropium [place] [Spiriva 1 spray INHALATION RT-DAILY 04/15/20 06/09/21 History Respimat] lisinopriL [Zestril] 2.5 mg PO QAM 04/15/20 06/05/21 History Atorvastatin [Lipitor] 20 mg PO DAILY 06/05/21 06/05/21 History Allergies Allergy/AdvReac Type Severity Reaction Status Date / Time No Known Allergies Allergy Verified 06/05/21 14:38 Surgical - Exam Vital Signs Temp Pulse Resp BP Pulse Ox 96.1 F L 88 18 162/78 93 L 06/09/21 06:42 06/09/21 06:42 06/09/21 06:42 06/09/21 06:42 06/09/21 06:42 Results - Labs Abnormal Lab Results - Last 24 Hours (Table) 06/09/21 Range/Units 06:51 POC Glucose (mg/dL) 120 H (75-99) mg/dL
--- NOTE | 2021-06-09 07:41 | P.PCN ---
Date of Procedure: 06/09/21 Description of Procedure: PREOPERATIVE DIAGNOSIS: History of high-risk colon polyps POSTOPERATIVE DIAGNOSIS: History of high-risk colon polyps External hemorrhoids, grade 3. Sigmoid diverticulosis with active diverticulitis. Lipoma along the left buttock, 3 cm. OPERATION:AC Colonoscopy to the ileocecal valve SURGEON: Larisa Rodriguez MD. ANESTHESIA: MAC. INDICATIONS: The patient is a 80-year-old male who presents with high-risk large adenomas. He now presents for surveillance. Benefits and risks were described and informed consent was obtained. DESCRIPTION OF PROCEDURE: The patient had undergone Gatorade, MiraLAX and Dulcolax prep. He had been brought into the operating room and laid in the left lateral decubitus position. After adequate intravenous sedation, the rectum was examined with 2% lidocaine jelly. External hemorrhoids were encountered. An external lipoma along the gluteal cleft left side was found of 3 cm in size along the subcutaneous tissue. The prostate was smooth and within normal limits. The rectal tone was within normal limits. No lesions were palpated in the rectal vault. An Olympus colonoscope was advanced until the ileocecal valve was clearly viewed. Large mouth diverticulosis with recent diverticulitis. The prep was good with visualization of the mucosal folds. No large colon adenomas were found. The colon was desufflated. The patient had tolerated the procedure well. Withdrawal time was over 6 minutes. FINDINGS: [place] grade 2 External hemorrhoids, grade 3. Lipoma along the left gluteal cuff, 3 cm. No arteriovenous malformations. Resolving inflammation from sigmoid diverticulitis No large adenomas of the colon Large amount of sigmoid diverticulosis with recent diverticulitis RECOMMENDATIONS: Repeat colonoscopy in 5 years, 2025 Plan - Discharge Summary Discharge Rx Participant: Yes New Discharge Prescriptions: Continue Multivitamins, Thera [Multivitamin (formulary)] 1 tab PO DAILY Finasteride [Proscar] 5 mg PO DAILY Diltiazem HCl 120 mg PO QAM metFORMIN HCL [Glucophage] 500 mg PO W/SUPPER Glucosam/Wilver-Msm1/C/Storm/Bosw [Glucosamine-Chondroitin Tablet] 1 tab PO DAILY Mv-Mn/C/Glutamin/Lysin/[id number] [Airborne Gummies] 1 tab PO DAILY Albuterol Sulfate [Proair Hfa] 1 - 2 puff INHALATION RT-Q6H PRN PRN Reason: Shortness Of Breath Tiotropium [place] [Spiriva Respimat] 1 spray INHALATION RT-DAILY lisinopriL [Zestril] 2.5 mg PO QAM Potassium Chloride [Klor-Con 20] 20 meq PO DAILY Cyclobenzaprine [Flexeril] 10 mg PO TID PRN #12 tablet PRN Reason: Pain Atorvastatin [Lipitor] 20 mg PO DAILY Discharge Medication List Diltiazem HCl 120 mg PO QAM 11/22/14 [History] Finasteride [Proscar] 5 mg PO DAILY 11/22/14 [History] Multivitamins, Thera [Multivitamin (formulary)] 1 tab PO DAILY 11/22/14 [H istory] Glucosam/Wilver-Msm1/C/Storm/Bosw [Glucosamine-Chondroitin Tablet] 1 tab PO DAILY 03/08/17 [History] Mv-Mn/C/Glutamin/Lysin/[id number] [Airborne Gummies] 1 tab PO DAILY 03/08/17 [History] metFORMIN HCL [Glucophage] 500 mg PO W/SUPPER 03/08/17 [History] Albuterol Sulfate [Proair Hfa] 1 - 2 puff INHALATION RT-Q6H PRN 04/15/20 [History] Cyclobenzaprine [Flexeril] 10 mg PO TID PRN #12 tablet 04/15/20 [Rx] Potassium Chloride [Klor-Con 20] 20 meq PO DAILY 04/15/20 [History] Tiotropium [place] [Spiriva Respimat] 1 spray INHALATION RT-DAILY 04/15/20 [History] lisinopriL [Zestril] 2.5 mg PO QAM 04/15/20 [History] Atorvastatin [Lipitor] 20 mg PO DAILY 06/05/21 [History] Follow up Appointment(s)/Referral(s): Larisa Rodriguez MD [STAFF PHYSICIAN] - As Needed Patient Instructions/Handouts: Diverticulitis Diet (DC), Diverticulitis (IP) Activity/Diet/Wound Care/Special Instructions: Low fiber diet for 2 days Discharge Disposition: HOME SELF-CARE
[2021-06-09 07:57] VITALS: BP 142/58; PULSE 58
== END 2021-06-09 08:42 | disposition home or self-care (01) ==
LOC: ORWHC2ENDO 06:22
PROVIDERS: ATTEND Surgery Plastic and Reconstructive Surgery
DX: Z12.11 Encounter for screening for malignant neoplasm of colon (principal); K64.2 Third degree hemorrhoids; K57.30 Diverticulosis of large intestine without perforation or abscess without bleeding; K57.32 Diverticulitis of large intestine without perforation or abscess without bleeding; D17.1 Benign lipomatous neoplasm of skin and subcutaneous tissue of trunk; Z86.010 Personal history of colon polyps; J44.9 Chronic obstructive pulmonary disease, unspecified; I10 Essential (primary) hypertension; G47.30 Sleep apnea, unspecified; I38 Endocarditis, valve unspecified; E78.5 Hyperlipidemia, unspecified; E66.01 Morbid (severe) obesity due to excess calories; Z68.42 Body mass index [BMI] 45.0-49.9, adult; C67.9 Malignant neoplasm of bladder, unspecified; Z90.49 Acquired absence of other specified parts of digestive tract; Z96.652 Presence of left artificial knee joint; Z98.890 Other specified postprocedural states; Z87.891 Personal history of nicotine dependence; Z80.8 Family history of malignant neoplasm of other organs or systems; Z79.84 Long term (current) use of oral hypoglycemic drugs; Z79.899 Other long term (current) drug therapy
CPT/HCPCS: J2001; J2704; G0105; 45378

== ENCOUNTER → 2022-01-12 | Outpatient (CLI) | payer MEDICARE, BC ==
[~2022-01-12] MED LIST changes: +BEBTELOVIMAB (EUA) 175 MG/2 ML VIAL IV ONE; -LACTATED RINGERS 1,000 ML IV SCH; -LIDOCAINE 1% (10MG/ML) FOR IV START INTRADERMA PRN; +SODIUM CHLORIDE 0.9% 500 ML 500 ML in EMPTY BAG 1 BAG IV PRN
[2022-01-12 09:59] VITALS: TEMP 96.7
[2022-01-12 11:05] VITALS: BP 138/69; PULSE 51; RESP 19
== END ==
LOC: PROCWHC3 09:23
PROVIDERS: ATTEND Nurse Practitioner
DX: U07.1 COVID-19 (principal); E11.9 Type 2 diabetes mellitus without complications; Z87.891 Personal history of nicotine dependence
CPT/HCPCS: Q0222; M0222

== ENCOUNTER → 2022-01-12 | Outpatient (CLI) | payer MEDICARE, BC ==
[2022-01-12 11:12] LABS: African American GFR (CKD) >90 (>60 ml/min/1.73 sqM); Anion Gap 8 mmol/L; Blood Urea Nitrogen 16 mg/dL (9-20); Calcium 8.4 mg/dL (8.4-10.2); Carbon Dioxide 21 mmol/L (22-30); Chloride 109 mmol/L (98-107); Glucose 75 mg/dL (74-99); Non-African American GFR(CKD) >90 (>60 ml/min/1.73 sqM); Sodium 138 mmol/L (137-145)
[2022-01-12 11:14] LABS: Potassium 4.6 mmol/L (3.5-5.1)
[2022-01-12 18:13] LABS: Chol/HDL Ratio 4.65 Ratio; LDL Cholesterol,Calculated 79.4 mg/dL (0.0-131.0)
== END ==
LOC: PROCWHC3 09:53
PROVIDERS: ATTEND Internal Medicine Interventional Cardiology
DX: E78.2 Mixed hyperlipidemia (principal); I34.0 Nonrheumatic mitral (valve) insufficiency; Z87.891 Personal history of nicotine dependence
CPT/HCPCS: 36415; 80048; 80061; 83880

== ENCOUNTER → 2022-10-16 | Outpatient (CLI) | payer MEDICARE, BC ==
[2022-10-16 09:48] LABS: African American GFR (CKD) >90 (>60 ml/min/1.73 sqM); Blood Urea Nitrogen 13 mg/dL (9-20); Non-African American GFR(CKD) 89 (>60 ml/min/1.73 sqM)
--- NOTE | 2022-10-16 11:34 | CT ---
EXAMINATION TYPE: CT urogram wo/w con DATE OF EXAM: 10/16/2022 COMPARISON: 04/15/2020 HISTORY: 82-year-old male C67.9, history of bladder ca TECHNIQUE: Contiguous axial scanning of the abdomen and pelvis performed without and with IV Contrast , patient injected with 100 mL of Isovue 370. Delayed images through the kidneys and bladder were obt ained. Coronal/sagittal reconstructions performed. 3-D reconstructions generated on a dedicated works tation. CT DLP: 3794 mGycm Automated exposure control for dose reduction was used. FINDINGS: The heart is borderline enlarged without pericardial effusion. Some RCA coronary calcifications are p resent and are remarkable for coronary artery disease. Suspect some underlying interstitial scarring in the lower lungs. A 7 mm posterior left basilar pulmonary nodule not clearly seen previously. Prominent dependent atelectasis. No pleural effusion. No focal liver lesion. Prominent bile duct status post cholecystectomy likely within normal limits. P ortal venous system is patent. Stable 1.3 cm nodule right adrenal gland suggesting a benign etiology. Left adrenal gland, spleen, and pancreas within normal limits. Kidneys show no nephrolithiasis or hydronephrosis. There is symmetric uptake and excretion of contras t from both kidneys. No suspicious renal mass. There is a vague to small to characterize 7 mm hypoden sity posterior right kidney, likely a tiny cyst. No abnormal filling defect within the renal collecting systems. Mild discogenic calcifications infrarenal abdominal aorta and iliac arteries. Unchanged prominent retroperitoneal lymph nodes measuring up to 1.5 cm. Stability suggests a benign e tiology. No new mesenteric or retroperitoneal lymphadenopathy. No dilated small bowel, free fluid, or free air. Normal appendix. There is mild stool burden. Left-sided colonic diverticulosis, most extensive in the sigmoid colon. There is mild pericolonic stranding along the proximal sigmoid colon probably represe nt prominent pericolonic vessels, axial image 60. Correlation can be made for any symptoms of an mild acute diverticulitis. Bladder is urine distended. The posterior half of the bladder is opacified on the last postcontrast s eries. No abnormal filling depth effect seen along the posterior half of the bladder wall. Prostate gland is normal at 3.4 cm wide with some central calcifications. No abnormal fluid collectio n the pelvis or pelvic lymphadenopathy. Bones: [facility] within the lower thoracic spine. Moderate to advanced disc/endplate degenerative change a nd hypertrophic facet arthropathy mid to lower lumbar spine. No osseous destructive process. IMPRESSION: 1. NO SUSPICIOUS RENAL MASS. NO ABNORMAL FILLING DEFECT IN THE RENAL COLLECTING SYSTEMS, ALONG THE UR ETERS, OR ALONG THE POSTERIOR HALF OF THE OPACIFIED BLADDER. 2. A 7 MM POSTERIOR LEFT BASILAR PULMONARY NODULE NOT CLEARLY SEEN PREVIOUSLY. THIS REMAINS NONSPECIF IC. 2-3 MONTH FOLLOW-UP CT CHEST TO REASSESS AND ALSO TO SURVEY THE REMAINDER OF THE LUNGS. 3. MILDLY ENLARGED RETROPERITONEAL NODES MEASURING UP TO 1.5 CM REMAIN UNCHANGED FROM 2020 COMPATIBLE WITH A BENIGN ETIOLOGY. OTHERWISE, NO EVIDENCE FOR RECURRENT OR METASTATIC DISEASE. 4. EXTENSIVE SIGMOID DIVERTICULOSIS. THERE IS SOME PERICOLONIC STRANDING ALONG THE PROXIMAL SIGMOID C OLON PROBABLY REPRESENTING PROMINENT PERICOLONIC VESSELS. CORRELATE WITH PATIENT'S SYMPTOMS TO EXCLUD E MILD ACUTE DIVERTICULITIS.
== END | disposition home or self-care (01) ==
LOC: RADCTMAIN 08:39
PROVIDERS: ATTEND Urology
DX: C67.9 Malignant neoplasm of bladder, unspecified (principal); R91.1 Solitary pulmonary nodule; K57.30 Diverticulosis of large intestine without perforation or abscess without bleeding; R59.0 Localized enlarged lymph nodes
CPT/HCPCS: 82565; 84520; 74178; 36415; 74400; Q9967

== ENCOUNTER → 2023-04-28 | Outpatient (CLI) | payer BC, MEDICARE ==
[2023-04-28 12:35] LABS: African American GFR (CKD) >90 (>60 ml/min/1.73 sqM); Blood Urea Nitrogen 20 mg/dL (9-20); Non-African American GFR(CKD) 89 (>60 ml/min/1.73 sqM)
--- NOTE | 2023-04-28 13:18 | CT ---
EXAMINATION TYPE: CT chest w con CT DLP: 1785.90 mGycm, Automated exposure control for dose reduction was used. DATE OF EXAM: 04/28/2023 1:07 PM COMPARISON: Chest radiograph 04/19/2023, CTA chest 05/06/2013 CLINICAL INDICATION:Male, 82 years old with history of R91.1 PULMONARY NODULE; PHH, Pulmonary Nodule TECHNIQUE: Multiple axial images were obtained through the chest following the administration of 100 cc of Isovue 300. . Coronal and sagittal reformats reviewed. FINDINGS: LUNGS/ PLEURA: No pleural effusion, pneumothorax, focal consolidation. Scattered subpleural reticular for pulmonary provide changes. Moderate centrilobular emphysematous changes. Left lower lobe 4 mm pu lmonary nodule (series 4, image 39). Bilateral lower lobe punctate calcified granulomas. AIRWAY: Patent and unremarkable.. HEART: Prominent in size. No pericardial effusion. MEDIASTINUM: Decreased size of mediastinal lymph nodes from 2013 exam. Largest is in the subcarinal r egion measuring 1.5 cm short axis. Previously 1.9 cm short axis. VASCULATURE: Ascending thoracic aortic aneurysm measuring up to 4.2 cm. The aortic root measures up to 3.3 cm. The descending thoracic aorta measures up to 3.2 cm. Dilated main pulmonary artery measuri ng up to 3.9 cm MUSCULOSKELETAL: No acute osseous abnormalities. Findings compatible with DISH. SOFT TISSUES/LYMPH NODES: Unremarkable. LOWER NECK: No significant findings. UPPER ABDOMEN: Post cholecystectomy changes with expected extra biliary duct dilatation. IMPRESSION: 1. Left lower lobe 4 mm pulmonary nodule. In a low-risk patient, no follow-up is recommended. In a hi gh-risk patient consider optional CT chest in 12 months. 2. Moderate COPD changes. 3. Ascending thoracic aortic aneurysm measuring up to 4.2 cm. 4. Dilated main pulmonary artery which can be seen in setting of pulmonary arterial hypertension. 5. Decreased mediastinal adenopathy from prior examination.
== END | disposition home or self-care (01) ==
LOC: RADCTMAIN 11:16
PROVIDERS: ATTEND Internal Medicine Critical Care Medicine
DX: J44.9 Chronic obstructive pulmonary disease, unspecified (principal); R91.1 Solitary pulmonary nodule; I71.21 Aneurysm of the ascending aorta, without rupture; I27.21 Secondary pulmonary arterial hypertension
CPT/HCPCS: 82565; 84520; 71260; 36415; Q9967

== ENCOUNTER → 2023-09-27 | Outpatient (CLI) | payer MEDICARE ==
--- NOTE | 2023-09-27 10:05 | CT ---
EXAMINATION TYPE: CT chest w con DATE OF EXAM: 09/27/2023 COMPARISON: 04/28/2023 HISTORY: enlarged lymph nodes CT DLP: 680.7 mGycm Automated exposure control for dose reduction was used. TECHNIQUE: CT scan of the chest is performed with IV Contrast, patient injected with 100 mL of Isovue 300. MIP Images are created on CT scanner and reviewed. 3D reconstructed images are created on an independent workstation and reviewed. FINDINGS: LUNGS: Diffuse emphysematous changes. There are subsegmental changes in bilateral lower lobes. No foc al pneumonia. 4 mm left lower lobe pulmonary nodule stable. MEDIASTINUM: There is scattered borderline adenopathy in the hilum and mediastinum. There is a pathol ogical subcarinal lymph node measuring 1.2 cm. There is a subcentimeter right thyroid nodule with atr ophic changes of the thyroid OTHER: Small hiatal hernia. Postcholecystectomy clips right upper quadrant. Multilevel degenerative and hypertrophic changes of the spine. Benign-appearing cystic change of the left glenoid likely post arthritic. IMPRESSION: 1. Diffuse COPD with bilateral areas of atelectasis. Stable 4 mm left lower lobe pulmonary nodule. 2. Stable pathologic hilar and mediastinal lymphadenopathy. Follow-up recommendations for incidental pulmonary nodules are per [employer] or [employer].
== END | disposition home or self-care (01) ==
LOC: RADCTMAIN 07:17
PROVIDERS: ATTEND Family Medicine
DX: J44.9 Chronic obstructive pulmonary disease, unspecified (principal); J98.11 Atelectasis; R91.1 Solitary pulmonary nodule; R59.0 Localized enlarged lymph nodes
CPT/HCPCS: 71260; Q9967

== ENCOUNTER → 2023-09-27 | Outpatient (CLI) | payer MEDICARE ==
[2023-09-27 07:49] LABS: ALT 25 U/L (4-49); AST 26 U/L (17-59); African American GFR (CKD) >90 (>60 ml/min/1.73 sqM); Albumin/Globulin Ratio 1.4; Alkaline Phosphatase 95 U/L (38-126); Anion Gap 11 mmol/L; Bilirubin,Unconjugated 0.5 mg/dL (0.0-1.1); Blood Urea Nitrogen 13 mg/dL (9-20); Calcium 9.3 mg/dL (8.4-10.2); Carbon Dioxide 21 mmol/L (22-30); Chloride 108 mmol/L (98-107); Globulin 2.9 g/dL; Glucose 142 mg/dL (74-99); Non-African American GFR(CKD) 86 (>60 ml/min/1.73 sqM); Potassium 4.2 mmol/L (3.5-5.1); Sodium 140 mmol/L (137-145); Total Bilirubin 0.7 mg/dL (0.2-1.3); Total Protein 6.9 g/dL (6.3-8.2)
[2023-09-27 10:59] LABS: Basophils # (A) 0.06 X 10*3/uL (0.00-0.10); Basophils % (A) 0.7 %; Eosinophils # (A) 0.22 X 10*3/uL (0.04-0.35); Eosinophils % (A) 2.6 %; HCT 42.1 % (39.6-50.0); HGB 13.7 g/dL (13.0-17.0); Lymphocytes # (A) 1.64 X 10*3/uL (0.90-5.00); Lymphocytes % (A) 19.6 %; MCH 30.3 pg (27.0-32.0); MCHC 32.5 g/dL (32.0-37.0); MCV 93.1 FL (80.0-97.0); Mean Platelet Volume 9.7 FL (9.5-12.2); Monocytes # (A) 0.63 X 10*3/uL (0.20-1.00); Monocytes % (A) 7.5 %; NRBC Per 100 WBC 0 X 10*3/uL (0.00-0.01); Neutrophils # (A) 5.78 X 10*3/uL (1.80-7.70); Neutrophils % (A) 69.4 %; Platelet Count 239 X 10*3/uL (140-440); RBC 4.52 X 10*6/uL (4.40-5.60); RDW 13.4 % (11.5-14.5); WBC 8.35 X 10*3/uL (4.50-10.00)
[2023-09-27 12:50] LABS: INR 1.12 sec (0.93-1.11)
== END | disposition home or self-care (01) ==
LOC: LABPAT 06:52
PROVIDERS: ATTEND Family Medicine
DX: Z01.812 Encounter for preprocedural laboratory examination (principal)
CPT/HCPCS: 36415; 80048; 80076; 85025; 85610

== ENCOUNTER → 2023-10-04 | Outpatient (CLI) | payer MEDICARE ==
[2023-10-04 11:14] LABS: INR 1.1 (<1.2); Partial Thromboplastin Time 24.6 sec (22.0-30.0); Prothrombin Time 11.8 sec (10.0-12.5)
[2023-10-04 15:32] LABS: HCT 44.9 % (39.6-50.0); HGB 14.7 g/dL (13.0-17.0); MCH 31.1 pg (27.0-32.0); MCHC 32.7 g/dL (32.0-37.0); MCV 95.1 FL (80.0-97.0); Mean Platelet Volume 10.1 FL (9.5-12.2); NRBC Per 100 WBC 0 X 10*3/uL (0.00-0.01); Platelet Count 253 X 10*3/uL (140-440); RBC 4.72 X 10*6/uL (4.40-5.60); RDW 13.4 % (11.5-14.5); WBC 7.71 X 10*3/uL (4.50-10.00)
[2023-10-04 16:00] LABS: ALT 24 U/L (10-49); AST 23 U/L (14-35); Albumin 4.4 g/dL (3.8-4.9); Albumin/Globulin Ratio 1.63 Ratio (1.60-3.17); Alkaline Phosphatase 104 U/L (41-126); BUN/Creat Ratio 13.33 Ratio (12.00-20.00); Calcium 9.6 mg/dL (8.7-10.3); Chloride 105 mmol/L (96-109); Globulin 2.7 g/dL (1.6-3.3); Glucose 142 mg/dL (70-110); Potassium 4.5 mmol/L (3.5-5.5); Sodium 140 mmol/L (135-145); Total Bilirubin 0.6 mg/dL (0.3-1.2); Total Protein 7.1 g/dL (6.2-8.2)
== END | disposition home or self-care (01) ==
LOC: LABPAT 09:40
PROVIDERS: ATTEND Orthopaedic Surgery
DX: Z01.812 Encounter for preprocedural laboratory examination (principal); M17.11 Unilateral primary osteoarthritis, right knee; Z22.322 Carrier or suspected carrier of Methicillin resistant Staphylococcus aureus
CPT/HCPCS: 36415; 80053; 85027; 85610; 85730; 87070; 93005

== ENCOUNTER 2023-10-11 05:38 | Day surgery (SDC) | payer MEDICARE ==
[2023-10-06 10:33] VITALS: BMI 49.2
[~2023-10-11 05:38] MED LIST changes: -BEBTELOVIMAB (EUA) 175 MG/2 ML VIAL IV ONE; -SODIUM CHLORIDE 0.9% 500 ML 500 ML in EMPTY BAG 1 BAG IV PRN; +TRANEXAMIC 1,000 MG/100ML-NACL 1,000 MG in SALINE 1 100ML.BAG IVPB PRN; +ceFAZolin 3 GM in SODIUM CHLORIDE 0.9% 100 ML IVPB PRN
[2023-10-11] MEDS ORDERED: MIDAZOLAM 2 MG/2 ML VIAL IV PRN (06:00)
[2023-10-11] MEDS ORDERED: LIDOCAINE 1% (10MG/ML) FOR IV START INTRADERMA PRN (06:00)
[2023-10-11] MEDS ORDERED: HYDROmorphone 0.5 MG/0.5 ML SYRINGE IVP PRN (06:00)
[2023-10-11 06:34] LABS: Glucose,Whole Blood 125 mg/dL (70-110)
[2023-10-11] MEDS: ACETAMINOPHEN TAB 500 MG TAB PO PRN (06:45)
[2023-10-11] MEDS: GABAPENTIN 300 MG CAP PO PRN (06:45)
[2023-10-11] MEDS: DEXAMETHASONE SOD PHOSPHATE 4 MG/ML 1 ML VIAL IV ONE (06:45)
[2023-10-11] MEDS: ONDANSETRON 4 MG/2 ML VIAL IVP ONE (06:45)
[2023-10-11] MEDS: MELOXICAM 7.5 MG TAB PO PRN (06:45)
[2023-10-11] MEDS: LACTATED RINGERS 1,000 ML IV SCH (07:16)
[2023-10-11 07:36] VITALS: BP 155/72; PULSE 75; RESP 20; TEMP 97.7
--- NOTE | 2023-10-11 18:34 | P.PN ---
Progress Note - Text Progress Note Date: 10/11/23 Patient presented for elective knee replacement. After long discussion and evaluation, I reviewed the records including cardiac and pulmonary clearances. It was recommended by the consulting doctors that the patient undergo spinal anesthesia. Although spinal would be a good option for someone with COPD, this gentleman is unable to lay flat. He also has severe PHTN with RVSP > 80 according to the echo. We would not be able to sedate him as he will certainly be hypoxic and hypercarbic. Without sedation he will be uncomfortable and short of breath laying flat. Intubation will also prove challenging as he may require residential vent support. The decision was not easy to arrive at, but we spoke with the Dr. Melgar, the patient and his and explained everything in detail. In order to move forward, he will likely require significant dietary modifications and weight loss in order to lay flat comfortably. Overall, he is high risk and should not be considered a surgical candidate with his current condition and comorbidities. Katie Garcia MD.
== END 2023-10-11 07:18 | disposition home or self-care (01) ==
LOC: OR 05:38
PROVIDERS: ATTEND Orthopaedic Surgery
DX: Z53.8 Procedure and treatment not carried out for other reasons (principal); M17.11 Unilateral primary osteoarthritis, right knee
CPT/HCPCS: J1100; J2405

== ENCOUNTER 2023-12-03 12:38 | Inpatient (IN) | payer MEDICARE ==
--- NOTE | 2023-12-03 12:44 | ED ---
General Adult HPI - General Stated complaint: JUAN Time Seen by Provider: 12/03/23 12:39 Source: patient, EMS, RN notes reviewed Mode of arrival: EMS Limitations: no limitations - History of Present Illness Initial comments: Patient is an 83-year-old male presents emergency department with difficulty in breathing. Onset of symptoms was around a week ago. Patient has occasional cough with occasional yellow sputum. No fever however has had some chills. No leg pain or calf pain or calf swelling. Symptoms are similar to previous COPD - Related Data Home Medications Medication Instructions Recorded Confirmed Finasteride [Proscar] 5 mg PO DAILY 11/22/14 12/03/23 Multivitamins, Thera [Multivitamin 1 tab PO DAILY 11/22/14 12/03/23 (formulary)] Glucosam/Wilver-Msm1/C/Storm/Bosw 1 tab PO DAILY 03/08/17 12/03/23 [Glucosamine-Chondroitin Tablet] Mv-Mn/C/Glutamin/Lysin/Uycq843 1 tab PO DAILY 03/08/17 12/03/23 [Airborne Gummies] Albuterol Sulfate [Proair Hfa] 1 - 2 puff INHALATION RT-Q6H PRN 04/15/20 12/03/23 Atorvastatin [Lipitor] 20 mg PO DAILY 06/05/21 12/03/23 Arformoterol Tartrate [Brovana] 15 mcg INHALATION RT-BID 10/06/23 12/03/23 Furosemide [Lasix] 40 mg PO DAILY 10/06/23 12/03/23 Ibuprofen [Advil] 200 mg PO Q8HR PRN 10/06/23 12/03/23 traMADol HCL 50 mg PO Q4-6H PRN 10/06/23 12/03/23 Budesonide [Pulmicort] 0.5 mg INHALATION RT-BID 12/03/23 12/03/23 Potassium Chloride ER [K-Dur 10] 10 meq PO DAILY 12/03/23 12/03/23 Sertraline [Zoloft] 50 mg PO HS 12/03/23 12/03/23 Yupelri 175mg/3ml 175 mcg INHALATION RT-DAILY 12/03/23 12/03/23 dilTIAZem HCL [Cardizem CD] 120 mg PO DAILY 12/03/23 12/03/23 lisinopriL [Zestril] 10 mg PO BID 12/03/23 12/03/23 metFORMIN HCL ER [Glucophage XR] 1,000 mg PO W/SUPPER 12/03/23 12/03/23 Allergies Allergy/AdvReac Type Severity Reaction Status Date / Time No Known Allergies Allergy Verified 12/03/23 13:22 Review of Systems ROS Statement: Those systems with pertinent positive or pertinent negative responses have been documented in the HPI. ROS Other: All systems not noted in ROS Statement are negative. Constitutional: Denies: fever Eyes: Denies: eye pain ENT: Denies: ear pain Respiratory: Reports: as per HPI, cough, dyspnea Cardiovascular: Denies: chest pain Endocrine: Reports: fatigue Gastrointestinal: Denies: abdominal pain Musculoskeletal: Denies: back pain Skin: Denies: rash Past Medical History Past Medical History: Cancer, COPD, Diabetes Mellitus, Hypertension, Sleep Apnea/CPAP/BIPAP Additional Past Medical History / Comment(s): leaky heart valve, rt inguinal hernia, Bladder cancer 4 weeks ago. History of Any Multi-Drug Resistant Organisms: None Reported Past Surgical History: Cholecystectomy, Hernia Repair, Joint Replacement, Tonsillectomy Additional Past Surgical History / Comment(s): LEFT KNEE replacement, Bladder surgery Past Anesthesia/Blood Transfusion Reactions: No Reported Reaction Additional Past Anesthesia/Blood Transfusion Reaction / Comment(s): No hx of blood transfusion. Smoking Status: Former smoker - Past Family History Mother Family Medical History: Cancer Additional Family Medical History / Comment(s): BRAIN General Exam Limitations: no limitations General appearance: alert Head exam: Present: normocephalic Eye exam: Present: normal appearance Neck exam: Present: normal inspection Respiratory exam: Present: respiratory distress (Mild), wheezes. Absent: decreased breath sounds Cardiovascular Exam: Present: regular rate, normal rhythm GI/Abdominal exam: Present: soft. Absent: tenderness Extremities exam: Present: normal inspection. Absent: pedal edema, calf tenderness Neurological exam: Present: alert Psychiatric exam: Present: normal affect, normal mood Skin exam: Present: normal color Course Vital Signs 12/03/23 12/03/23 12/03/23 12:44 13:27 13:39 Pulse Rate 93 90 92 Respiratory 24 Rate Blood Pressure 145/63 O2 Sat by Pulse 93 L Oximetry EKG Findings - EKG Results: EKG: interpreted by ERMD (First-degree AV block with a OK of 222. Left axis. Poor R wave progression. Anterior Q waves.), sinus rhythm, normal ST/T Medical Decision Making - Medical Decision Making Was pt. sent in by a medical professional or institution (YOVANY Cortes, DOCUMENTATION ANALYST, urgent care, hospital, or senior care...) When possible be specific @ -[No] Did you speak to anyone other than the patient for history (EMS, parent, family, police, friend...)? What history was obtained from this source @ -EMS provides transportation history Did you review nursing and triage notes (agree or disagree)? Why? @ -[I reviewed and agree with nursing and triage notes] Were old charts reviewed (outside hosp., previous admission, EMS record, old EKG, old radiological studies, urgent care reports/EKG's, senior care records)? Report findings @ -[No old charts were reviewed] Differential Diagnosis (chest pain, altered mental status, abdominal pain women, abdominal pain men, vaginal bleeding, weakness, fever, dyspnea, syncope, headache, dizziness, GI bleed, back pain, seizure, CVA, palpatations, mental health, musculoskeletal)? @ -Differential Dyspnea: Coronary syndrome, arrhythmia, tamponade, asthma, COPD, pulmonary embolism, pneumonia, pneumothorax, pulmonary effusion, anaphylaxis, diabetic ketoacidosis, flailed chest, pulmonary contusion, diaphragmatic rupture, anemia, neuromuscul ar, this is not meant to be an all-inclusive list. EKG interpreted by me (3pts min.). @ -[As above] X-rays interpreted by me (1pt min.). @ -Chest x-ray does show some increased interstitial marking CT interpreted by me (1pt min.). @ -[None done] U/S interpreted by me (1pt. min.). @ -[None done] What testing was considered but not performed or refused? (CT, X-rays, U/S, labs)? Why? @ -[None] What meds were considered but not given or refused? Why? @ -[None] Did you discuss the management of the patient with other professionals (professionals i.e. YOVANY Cortes, DOCUMENTATION ANALYST, lab, RT, psych nurse, social media marketing analyst, process excellence manager, teacher, hotel security officer, showcase trimmer)? Give summary @ -Case was discussed with Dr. Beyer who did evaluate patient. Case also discussed with Dr. Mortensen who will admit covering Dr. Esquivel. Was smoking cessation discussed for >3mins.? @ -[No] Was critical care preformed (if so, how long)? @ -31 minutes critical care Were there social determinants of health that impacted care today? How? (Homelessness, low income, unemployed, alcoholism, drug addiction, transportation, low edu. Level, literacy, decrease access to med. care, senior living, rehab)? @ -[No] Was there de-escalation of care discussed even if they declined (Discuss DNR or withdrawal of care, Hospice)? DNR status @ -[No] What co-morbidities impacted this encounter? (DM, HTN, Smoking, COPD, CAD, Cancer, CVA, ARF, Chemo, Hep., AIDS, mental health diagnosis, sleep apnea, morbid obesity)? @ -[None] Was patient admitted / discharged? Hospital course, mention meds given and route, prescriptions, significant lab abnormalities, going to OR and other pertinent info. @ -Patient presents with COPD and mild respiratory distress. Improved with oxygen and nebulizer. Patient will be admitted. Admission orders written. Consult placed for Dr. Beyer. There is concern for potential sepsis diagnosed at 1400. Blood culture and lactic acid and IV antibiotics will all be ordered Undiagnosed new problem with uncertain prognosis?There @ -[No] Drug Therapy requiring intensive monitoring for toxicity (Heparin, Nitro, Insulin, Cardizem)? @ -[No] Were any procedures done? @ -[No] Diagnosis/symptom? @ -COPD Acute, or Chronic, or Acute on Chronic? @ -Acute Uncomplicated (without systemic symptoms) or Complicated (systemic symptoms)? @ -[default] Side effects of treatment? @ -[No] Exacerbation, Progression, or Severe Exacerbation? @ -Exacerbation Poses a threat to life or bodily function? How? (Chest pain, [place], VA, pneumonia, PE, COPD, DKA, ARF, appy, cholecystitis, CVA, Diverticulitis, Homicidal, Suicid al, threat to staff... and all critical care pts) @ -Threat of decreased oxygen perfusion with hypoxia - Lab Data Result diagrams: 12/03/23 12:57 12/03/23 12:57 Lab Results 12/03/23 12/03/23 12/03/23 Range/Units 12:57 12:57 12:57 WBC 18.1 H (3.8-10.6) k/uL RBC 4.26 L (4.30-5.90) m/uL Hgb 13.1 (13.0-17.5) gm/dL Hct 40.4 (39.0-53.0) % MCV 94.9 (80.0-100.0) fL MCH 30.7 (25.0-35.0) pg MCHC 32.4 (31.0-37.0) g/dL RDW 13.9 (11.5-15.5) % Plt Count 226 (150-450) k/uL MPV 7.8 Neutrophils % 89 % Lymphocytes % 5 % Monocytes % 5 % Eosinophils % 0 % Basophils % 0 % Neutrophils # 16.0 H (1.3-7.7) k/uL Lymphocytes # 0.9 L (1.0-4.8) k/uL Monocytes # 0.8 (0-1.0) k/uL Eosinophils # 0.1 (0-0.7) k/uL Basophils # 0.0 (0-0.2) k/uL PT 13.6 H (10.0-12.5) sec INR 1.3 H (<1.2) APTT 27.8 (22.0-30.0) sec Sodium 137 (137-145) mmol/L Potassium 4.0 (3.5-5.1) mmol/L Chloride 107 (98-107) mmol/L Carbon Dioxide 22 (22-30) mmol/L Anion Gap 8 mmol/L BUN 20 (9-20) mg/dL Creatinine 0.70 (0.66-1.25) mg/dL Est GFR (CKD-EPI)AfAm >90 (>60 ml/min/1.73 sqM) Est GFR (CKD-EPI)NonAf 89 (>60 ml/min/1.73 sqM) Glucose 146 H (74-99) mg/dL Plasma Lactic Acid Levi (0.7-2.0) mmol/L Calcium 8.7 (8.4-10.2) mg/dL Magnesium 1.8 (1.6-2.3) mg/dL Total Bilirubin 1.6 H (0.2-1.3) mg/dL AST 34 (17-59) U/L ALT 25 (4-49) U/L Alkaline Phosphatase 135 H (38-126) U/L NT-Pro-B Natriuret Pep 520 pg/mL Total Protein 6.2 L (6.3-8.2) g/dL Albumin 3.5 (3.5-5.0) g/dL Influenza Type A (PCR) (Not Detectd) Influenza Type B (PCR) (Not Detectd) RSV (PCR) (Not Detectd) SARS-CoV-2 (PCR) (Not Detectd) 12/03/23 12/03/23 Range/Units 12:57 12:57 WBC (3.8-10.6) k/uL RBC (4.30-5.90) m/uL Hgb (13.0-17.5) gm/dL Hct (39.0-53.0) % MCV (80.0-100.0) fL MCH (25.0-35.0) pg MCHC (31.0-37.0) g/dL RDW (11.5-15.5) % Plt Count (150-450) k/uL MPV Neutrophils % % Lymphocytes % % Monocytes % % Eosinophils % % Basophils % % Neutrophils # (1.3-7.7) k/uL Lymphocytes # (1.0-4.8) k/uL Monocytes # (0-1.0) k/uL Eosinophils # (0-0.7) k/uL Basophils # (0-0.2) k/uL PT (10.0-12.5) sec INR (<1.2) APTT (22.0-30.0) sec Sodium (137-145) mmol/L Potassium (3.5-5.1) mmol/L Chloride (98-107) mmol/L Carbon Dioxide (22-30) mmol/L Anion Gap mmol/L BUN (9-20) mg/dL Creatinine (0.66-1.25) mg/dL Est GFR (CKD-EPI)AfAm (>60 ml/min/1.73 sqM) Est GFR (CKD-EPI)NonAf (>60 ml/min/1.73 sqM) Glucose (74-99) mg/dL Plasma Lactic Acid Levi 1.5 (0.7-2.0) mmol/L Calcium (8.4-10.2) mg/dL Magnesium (1.6-2.3) mg/dL Total Bilirubin (0.2-1.3) mg/dL AST (17-59) U/L ALT (4-49) U/L Alkaline Phosphatase (38-126) U/L NT-Pro-B Natriuret Pep pg/mL Total Protein (6.3-8.2) g/dL Albumin (3.5-5.0) g/dL Influenza Type A (PCR) Not Detected (Not Detectd) Influenza Type B (PCR) Not Detected (Not Detectd) RSV (PCR) Not Detected (Not Detectd) SARS-CoV-2 (PCR) Not Detected (Not Detectd) Critical Care Time Critical Care Time: Yes Disposition Clinical Impression: Acute exacerbation of chronic obstructive pulmonary disease, Sepsis Disposition: ADMITTED IP TO THIS [facility] Condition: Serious Is patient prescribed a controlled substance at d/c from ED?: No Referrals: Sathya Finn DO [Primary Care Provider] - 1-2 days Time of Disposition: 14:14
[2023-12-03] MEDS: SODIUM CHLORIDE 0.9% 1,000 ML IV STA (12:55)
[2023-12-03] MEDS: methylPREDNISolone SOD SUCCI 125 MG/2 ML VIAL IV STA (12:55)
[2023-12-03 13:17] LABS: Basophils % (A) 0 %; Eosinophils # (A) 0.1 k/uL (0-0.7); Eosinophils % (A) 0 %; HCT 40.4 % (39.0-53.0); HGB 13.1 gm/dL (13.0-17.5); Lymphocytes # (A) 0.9 k/uL (1.0-4.8); Lymphocytes % (A) 5 %; MCH 30.7 pg (25.0-35.0); MCHC 32.4 g/dL (31.0-37.0); MCV 94.9 fL (80.0-100.0); Mean Platelet Volume 7.8; Monocytes # (A) 0.8 k/uL (0-1.0); Monocytes % (A) 5 %; Neutrophils % (A) 89 %; Platelet Count 226 k/uL (150-450); RBC 4.26 m/uL (4.30-5.90); RDW 13.9 % (11.5-15.5); WBC 18.1 k/uL (3.8-10.6)
[2023-12-03] MEDS: IPRATROPIUM-ALBUTEROL 3 ML NEB INHALATION STA (13:26)
[2023-12-03 13:41] LABS: ALT 25 U/L (4-49); AST 34 U/L (17-59); African American GFR (CKD) >90 (>60 ml/min/1.73 sqM); Albumin 3.5 g/dL (3.5-5.0); Alkaline Phosphatase 135 U/L (38-126); Anion Gap 8 mmol/L; Blood Urea Nitrogen 20 mg/dL (9-20); Calcium 8.7 mg/dL (8.4-10.2); Carbon Dioxide 22 mmol/L (22-30); Chloride 107 mmol/L (98-107); Glucose 146 mg/dL (74-99); Magnesium 1.8 mg/dL (1.6-2.3); Non-African American GFR(CKD) 89 (>60 ml/min/1.73 sqM); Sodium 137 mmol/L (137-145); Total Bilirubin 1.6 mg/dL (0.2-1.3); Total Protein 6.2 g/dL (6.3-8.2)
[2023-12-03 13:46] LABS: NT-Pro-B-Type Natriuretic Pept 520 pg/mL
[2023-12-03 13:48] LABS: INR 1.3 (<1.2); Partial Thromboplastin Time 27.8 sec (22.0-30.0); Prothrombin Time 13.6 sec (10.0-12.5)
--- NOTE | 2023-12-03 14:00 | XR ---
EXAMINATION TYPE: XR chest 2V DATE OF EXAM: 12/03/2023 COMPARISON: 04/15/2020 TECHNIQUE: PA and lateral views submitted. HISTORY: Difficulty breathing FINDINGS: Heart is enlarged and there is diffuse COPD. Degree of underlying chronic interstitial lung disease s uspected with increased density at both lung bases. A more localized consolidation left lung base. Co uld be post infectious. Neoplasm not excluded. Arthropathy of the shoulders. No pneumothorax. Degener ative change of the spine. IMPRESSION: 1. COPD and changes of chronic interstitial pulmonary fibrosis with bilateral lower lobe area of infi ltrate. Correlate for pneumonia. Superimposed gestational pneumonitis or venous congestion in the dif ferential diagnosis..
[2023-12-03] MEDS ORDERED: traMADol 50 MG TAB PO PRN (14:09)
[2023-12-03] MEDS ORDERED: IPRATROPIUM-ALBUTEROL 3 ML NEB INHALATION PRN (14:15)
[2023-12-03] MEDS ORDERED: PNEUMONIA PROTOCOL UTILIZED 1 EACH MISC PO PRN (14:15)
[2023-12-03] MEDS ORDERED: methylPREDNISolone SOD SUCCI 125 MG/2 ML VIAL IV SCH (15:00)
[2023-12-03] MEDS: AZITHROMYCIN 500 MG in SODIUM CHLORIDE 0.9% 250 ML IVPB STA (15:57)
[2023-12-03] MEDS: guaiFENesin SYRUP 100MG/5ML 200 MG/10 ML CUP PO PRN (15:57)
[2023-12-03] MEDS: IPRATROPIUM-ALBUTEROL 3 ML NEB INHALATION SCH (15:58)
[2023-12-03 17:14] LABS: Glucose,Whole Blood 322 mg/dL (70-110)
[2023-12-03] MEDS ORDERED: DEXTROSE 50% SYRINGE 50 ML IVP PRN ×2 (17:20)
[2023-12-03] MEDS: metFORMIN 500 MG TAB PO SCH (17:39)
[2023-12-03] MEDS: INSULIN ASPART (NovoLOG) 100 UNIT/ML VIAL SQ SCH ×2 (17:40)
[2023-12-03] MEDS: SODIUM CHLORIDE 0.9% 1,000 ML IV SCH (17:40)
[2023-12-03] MEDS: methylPREDNISolone SOD SUCCI 125 MG/2 ML VIAL IV SCH (18:01)
[2023-12-03] MEDS: FORMOTEROL FUMARATE 20 MCG/2 ML NEBU INHALATION SCH (20:37)
[2023-12-03] MEDS: BUDESONIDE 0.5 MG/2 ML NEBU INHALATION SCH (20:37)
[2023-12-03 20:43] LABS: Glucose,Whole Blood 282 mg/dL (70-110)
[2023-12-03] MEDS: lisinopriL 10 MG TAB PO SCH (21:08)
[2023-12-03] MEDS: INSULIN DETEMIR (LEVEMIR) 100 UNIT/ML SYR SQ SCH (21:08)
[2023-12-03] MEDS: SERTRALINE 50 MG TAB PO SCH (21:08)
--- NOTE | 2023-12-03 21:59 | P.HPIM ---
History of Present Illness H&P Date: 12/03/23 Chief Complaint: Shortness of breath Patient is a 83-year-old male with a past medical history of COPD on home oxygen, hypertension, hyperlipidemia, diabetes type 2 amh-[id number]-[id number] obstructive sleep apnea and history of bladder cancer s/p surgery and prior history of smoking presents to ER with complaints of shortness of breath and cough for the past 3 to 4 days. Patient does have cough with light yellow sputum production. Denies any fever or chills. No leg swelling. No calf tenderness. No nausea vomiting abdominal pain or diarrhea. EKG showed sinus rhythm with first-degree AV block Chest x-ray showed COPD and changes of chronic interstitial pulmonary fibrosis with bilateral lower lobe area of infiltrate. Correlate for pneumonia. Superimposed gestational pneumonitis are venous congestion in the differential diagnosis. Laboratory data showed WBC 18.1 hemoglobin 13.1 and platelets 226 INR 1.3 sodium 137 potassium 4.0 chloride 107 bicarb is 22 BUN 20 and creatinine 0.7 and blood sugar 146 lactic acid 1.5 total bili 1.6 alk phos 135 proBNP 520 Influenza AB RSV and COVID-19 PCR not detected. Review of Systems Constitutional: Patient denies any fever or chills . Generalized weakness. No weight loss. s. Abdomen: Patient denied nausea vomiting and diarrhea and abdominal pain. Cardiovascular: Patient denies any chest pain. Patient does have short of breath no palpitations. No worsening leg swelling Respiratory: patient does have cough with yellow sputum production and shortness of breath Neurologic: Patient denied any numbness or tingling. no headache. Musculoskeletal: Patient denies any complaints of joint swelling or deformity. Skin: Negative Psychiatric: Negative Endocrine: No heat or cold intolerance. No recent weight gain. Genitourinary: No dysuria or hematuria. All other 14 point ROS negative except the above Past Medical History Past Medical History: Cancer, COPD, Diabetes Mellitus, Hyperlipidemia, Hypertension, Sleep Apnea/CPAP/BIPAP Additional Past Medical History / Comment(s): leaky heart valve, rt inguinal hernia, Bladder cancer. History of Any Multi-Drug Resistant Organisms: None Reported Past Surgical History: Cholecystectomy, Hernia Repair, Joint Replacement, Tonsil lectomy Additional Past Surgical History / Comment(s): LEFT KNEE replacement, Bladder surgery, bilat cataracts. Past Anesthesia/Blood Transfusion Reactions: No Reported Reaction Additional Past Anesthesia/Blood Transfusion Reaction / Comment(s): No hx of blood transfusion. Past Psychological History: No Psychological Hx Reported Smoking Status: Former smoker Past Alcohol Use History: None Reported Additional Past Alcohol Use History / Comment(s): quit in 1962, smoked for > 30 yrs, up to 3 PPD Past Drug Use History: None Reported - Past Family History Mother Family Medical History: Cancer Additional Family Medical History / Comment(s): BRAIN Medications and Allergies Home Medications Medication Instructions Recorded Confirmed Type Finasteride [Proscar] 5 mg PO DAILY 11/22/14 12/03/23 History Multivitamins, Thera [Multivitamin 1 tab PO DAILY 11/22/14 12/03/23 History (formulary)] Glucosam/Wilver-Msm1/C/Storm/Bosw 1 tab PO DAILY 03/08/17 12/03/23 History [Glucosamine-Chondroitin Tablet] Mv-Mn/C/Glutamin/Lysin/Ekbw959 1 tab PO DAILY 03/08/17 12/03/23 History [Airborne Gummies] Albuterol Sulfate [Proair Hfa] 1 - 2 puff INHALATION RT-Q6H PRN 04/15/20 12/03/23 History Atorvastatin [Lipitor] 20 mg PO DAILY 06/05/21 12/03/23 History Arformoterol Tartrate [Brovana] 15 mcg INHALATION RT-BID 10/06/23 12/03/23 History Furosemide [Lasix] 40 mg PO DAILY 10/06/23 12/03/23 History Ibuprofen [Advil] 200 mg PO Q8HR PRN 10/06/23 12/03/23 History traMADol HCL 50 mg PO Q4-6H PRN 10/06/23 12/03/23 History Budesonide [Pulmicort] 0.5 mg INHALATION RT-BID 12/03/23 12/03/23 History Potassium Chloride ER [K-Dur 10] 10 meq PO DAILY 12/03/23 12/03/23 History Sertraline [Zoloft] 50 mg PO HS 12/03/23 12/03/23 History Yupelri 175mg/3ml 175 mcg INHALATION RT-DAILY 12/03/23 12/03/23 History dilTIAZem HCL [Cardizem CD] 120 mg PO DAILY 12/03/23 12/03/23 History lisinopriL [Zestril] 10 mg PO BID 12/03/23 12/03/23 History metFORMIN HCL ER [Glucophage XR] 1,000 mg PO W/SUPPER 12/03/23 12/03/23 History Allergies Allergy/AdvReac Type Severity Reaction Status Date / Time No Known Allergies Allergy Verified 12/03/23 13:22 Physical Exam Vitals: Vital Signs Temp Pulse Pulse Resp BP BP Pulse Ox 12/03/23 21:03 88 12/03/23 20:50 88 12/03/23 20:49 88 12/03/23 20:40 84 12/03/23 18:52 98.7 F 85 15 144/63 94 L 12/03/23 16:50 98.4 F 89 26 H 119/63 90 L 12/03/23 16:13 90 12/03/23 15:58 90 12/03/23 15:46 89 20 126/61 92 L 12/03/23 13:39 92 12/03/23 13:27 90 12/03/23 12:44 93 24 145/63 93 L Intake and Output 12/03/23 12/03/23 12/03/23 06:59 14:59 22:59 Other: # Voids 1 Weight 134.717 kg 134.717 kg PHYSICAL EXAMINATION: Patient is lying in the bed mild acute acute distress, awake alert and oriented. Morbidly obese. HEENT: Normocephalic. Neck is supple. Pupils reactive. Nostrils clear. Oral cavity is moist. Neck reveals no JVD, carotid bruits, or thyromegaly. CHEST EXAMINATION: Trachea is central. Symmetrical expansion. Bilateral diminished sounds and expiratory wheezing and minimal air entry. CARDIAC: Normal S1, S2 with no gallops. Systolic murmur. ABDOMEN: Soft. Bowel sounds present. No organomegaly. No abdominal bruits. Extremities: reveal no edema. No clubbing or cyanosis Neurologically awake, alert, oriented x3 with well-coordinated movements. No gross focal deficits noted Skin: No rash or skin lesions. Psychiatric: Coperative. Nonsuicidal Musculoskeletal: No joint swelling or deformity. Normal range of motion. Results CBC & Chem 7: 12/04/23 06:39 12/04/23 06:34 Labs: Abnormal Lab Results - Last 24 Hours (Table) 12/03/23 12/03/23 12/03/23 Range/Units 12:57 12:57 12:57 WBC 18.1 H (3.8-10.6) k/uL RBC 4.26 L (4.30-5.90) m/uL Neutrophils # 16.0 H (1.3-7.7) k/uL Lymphocytes # 0.9 L (1.0-4.8) k/uL PT 13.6 H (10.0-12.5) sec INR 1.3 H (<1.2) Glucose 146 H (74-99) mg/dL POC Glucose (mg/dL) (70-110) mg/dL Total Bilirubin 1.6 H (0.2-1.3) mg/dL Alkaline Phosphatase 135 H (38-126) U/L Total Protein 6.2 L (6.3-8.2) g/dL 12/03/23 12/03/23 Range/Units 17:12 20:42 WBC (3.8-10.6) k/uL RBC (4.30-5.90) m/uL Neutrophils # (1.3-7.7) k/uL Lymphocytes # (1.0-4.8) k/uL PT (10.0-12.5) sec INR (<1.2) Glucose (74-99) mg/dL POC Glucose (mg/dL) 322 H 282 H (70-110) mg/dL Total Bilirubin (0.2-1.3) mg/dL Alkaline Phosphatase (38-126) U/L Total Protein (6.3-8.2) g/dL Thrombosis Risk Factor Assmnt - DVT/VTE Prophylaxis DVT/VTE Prophylaxis: Pharmacologic Prophylaxis ordered - Choose All That Apply Any of the Below Risk Factors Present?: Yes Each Factor Represents 1 point: Abnormal pulmonary function (COPD), Obesity (BMI >25) Other Risk Factors: Yes Each Risk Factor Represents 3 Points: Age 75 years or older Other congenital or acquired thrombophilia - If yes, enter type in comment: No Thrombosis Risk Factor Assessment Total Risk Factor Score: 5 Thrombosis Risk Factor Assessment Level: High Risk Assessment and Plan Assessment: Acute on chronic hypoxic respiratory failure currently requiring 6 L oxygen via nasal cannula Acute bilateral lower lobe pneumonia with sepsis Acute exacerbation of COPD Obstructive sleep apnea on CPAP at home Secondary pulmonary hypertension History of bladder cancer status post transurethral resection of bladder tumor. Patient is on follow-up with urology as an outpatient. 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 Can with IV antibiotics ceftriaxone and azithromycin. Procalcitonin level was ordered. Urine Legionella antigen is negative. Patient will be continued on home medication including Lasix and insulin sliding scale and insulin regimen for better blood sugar control. Continue with GI DVT prophylaxis. Follow-up closely. Pulmonary was consulted. Prognosis is guarded with multiple medical problems and comorbid conditions. Time with Patient: Greater than 30
--- NOTE | 2023-12-04 00:01 | P.CNPUL ---
History of Present Illness Consult date: 12/03/23 Reason for consult: dyspnea, COPD History of present illness: This is an 83-year-old male patient with known history of COPD who came into the emergency department having difficulties in breathing and the patient became progressively more short of breath over the past few days. The patient has been maintained on a combination of Yupelri and budesonide/Perforomist nebulized treatments on outpatient basis the patient has been utilizing Ventolin rescue inhaler on a as needed basis. He has chronic exertional dyspnea. His baseline FEV1 is noted of 83% of predicted. The patient has been on oxygen 2 L/min nasal cannula. His previous CAT scan of the chest was done on 09/27/2023 showed a stable 4 mm left lower lobe pulmonary nodule which is being monitored and the patient has stable hilar mediastinal adenopathy which is also being monitored. The largest lymph node was in the subcarinal area measuring around 1.2 cm in size. He is also known to have chronic A-fib, diabetes mellitus type 2, hypertension and secondary pulm hypertension. He has also previous history of bladder cancer under the care of urology. Typically wears oxygen 2 L/min nasal cannula. He has obstructive sleep apnea compliant with CPAP therapy at a pressure of 13 cm of water. He has symptoms of BPH, and chronic lower extremity edema. In the emergency department, the patient was experiencing difficulties in breathing, cough and congestion and chest tightness and wheezing. The white cell count was at 18 with a hemoglobin of 13 and a platelet count of 226. INR was at 1.3 with a PT of 13.6 BUN of 20 with a creatinine of 0.7 and sodium levels 137, the viral screen was negative. LFTs were essentially within normal limits. His EKG showed normal sinus rhythm with a first-degree AV block. No acute ischemic changes. Chest x-ray that was done in the emergency department was reviewed and the patient was found to have cardiomegaly and increased interstitial markings bilaterally and an area of consolidation of the left lung base consistent with underlying pneumonia. Malignancy is felt to be less likely as the patient's CAT scan of the chest that was done on 09/27/2023 showed only a stable 4 mm nodule left lower lobe and diffuse emphysema. The patient accordingly was started on Rocephin and Zithromax. He is currently on IV Solu- Medrol. He is on DuoNeb nebulized treatments [id number]. He is currently on oxygen at 6 L nasal cannula. Review of Systems Constitutional:: obese and his n weight has been stable. Patient reports snoring but reports no sore throat, no bleeding gums, no dry mouth, no mouth ulcers, and no teeth problems. He reports shortness of breath when walking but reports no chest pain, no arm pain on exertion, no shortness of breath when lying down, no palpitations, and no known heart murmur. He reports shortness of breath and sleep apnea. He reports swelling in the extremities but reports no muscle aches, no muscle weakness, no arthralgias/joint pain, and no back pain. He reports no dry eyes, no vision change, and no irritation. He reports no difficulty hearing and no ear pain. He reports no frequent nosebleeds, no nose problems, and no sinus problems. He reports no abdominal pain, no nausea, no vomiting, no constipation, normal appetite, no diarrhea, not vomiting blood, no dyspepsia, and no GERD. He reports no incontinence, no difficulty urinating, no hematuria, and no increased frequency. He reports no loss of consciousness, no weakness, no numbness, no seizures, no dizziness, no migraines, no headaches, and no tremor. He reports no depression, no sleep disturbances, feeling safe in a relationship, no alcohol abuse, no anxiety, no hallucinations, and no suicidal thoughts. He reports no fatigue. He reports no swollen glands, no bruising, and no excessive bleeding. He reports no runny nose, no sinus pressure, no itching, no hives, and no frequent sneezing. Past Medical History Past Medical History: Cancer, COPD, Diabetes Mellitus, Hyperlipidemia, Hypertension, Sleep Apnea/CPAP/BIPAP Additional Past Medical History / Comment(s): leaky heart valve, rt inguinal hernia, Bladder cancer. History of Any Multi-Drug Resistant Organisms: None Reported Past Surgical History: Cholecystectomy, Hernia Repair, Joint Replacement, Tonsillectomy Additional Past Surgical History / Comment(s): LEFT KNEE replacement, Bladder surgery, bilat cataracts. Past Anesthesia/Blood Transfusion Reactions: No Reported Reaction Additional Past Anesthesia/Blood Transfusion Reaction / Comment(s): No hx of blood transfusion. Past Psychological History: No Psychological Hx Reported Smoking Status: Former smoker Past Alcohol Use History: None Reported Additional Past Alcohol Use History / Comment(s): quit in 1961, smoked for > 30 yrs, up to 3 PPD Past Drug Use History: None Reported - Past Family History Mother Family Medical History: Cancer Additional Family Medical History / Comment(s): BRAIN Medications and Allergies Home Medications Medication Instructions Recorded Confirmed Type Finasteride [Proscar] 5 mg PO DAILY 11/22/14 12/03/23 History Multivitamins, Thera [Multivitamin 1 tab PO DAILY 11/22/14 12/03/23 History (formulary)] Glucosam/Wilver-Msm1/C/Storm/Bosw 1 tab PO DAILY 03/08/17 12/03/23 History [Glucosamine-Chondroitin Tablet] Mv-Mn/C/Glutamin/Lysin/[id number] 1 tab PO DAILY 03/08/17 12/03/23 History [Airborne Gummies] Albuterol Sulfate [Proair Hfa] 1 - 2 puff INHALATION RT-Q6H PRN 04/15/20 12/03/23 History Atorvastatin [Lipitor] 20 mg PO DAILY 06/05/21 12/03/23 History Arformoterol Tartrate [Brovana] 15 mcg INHALATION RT-BID 10/06/23 12/03/23 History Furosemide [Lasix] 40 mg PO DAILY 10/06/23 12/03/23 History Ibuprofen [Advil] 200 mg PO Q8HR PRN 10/06/23 12/03/23 History traMADol HCL 50 mg PO Q4-6H PRN 10/06/23 12/03/23 History Budesonide [Pulmicort] 0.5 mg INHALATION RT-BID 12/03/23 12/03/23 History Potassium Chloride ER [K-Dur 10] 10 meq PO DAILY 12/03/23 12/03/23 History Sertraline [Zoloft] 50 mg PO HS 12/03/23 12/03/23 History Yupelri 175mg/3ml 175 mcg INHALATION RT-DAILY 12/03/23 12/03/23 History dilTIAZem HCL [Cardizem CD] 120 mg PO DAILY 12/03/23 12/03/23 History lisinopriL [Zestril] 10 mg PO BID 12/03/23 12/03/23 History metFORMIN HCL ER [Glucophage XR] 1,000 mg PO W/SUPPER 12/03/23 12/03/23 History Allergies Allergy/AdvReac Type Severity Reaction Status Date / Time No Known Allergies Allergy Verified 12/03/23 13:22 Physical Exam Vitals: Vital Signs Temp Pulse Pulse Resp BP BP Pulse Ox 12/03/23 16:50 98.4 F 89 26 H 119/63 90 L 12/03/23 16:13 90 12/03/23 15:58 90 12/03/23 15:46 89 20 126/61 92 L 12/03/23 13:39 92 12/03/23 13:27 90 12/03/23 12:44 93 24 145/63 93 L Intake and Output 12/03/23 12/03/23 12/03/23 06:59 14:59 22:59 Other: # Voids 1 Weight 134.717 kg 134.717 kg General Appearance no diaphoresis, dyspnea, pallor, or respiratory distress and speech not interrupted by breaths, not cachectic, well nourished, appears well, and morbid obesity. HEENT no pursed lip breathing, jugular venous distention, mucous membrane cyanosis, or perioral cyanosis and mallampati classification: class 1 and Mallampati Classification: Class 4. Chest no retractions, rhonchi, hyperinflation, barrel chest, sternocleidomastoid muscle contractions, supraclavicular retractions, intercostal retractions, prolonged expiratory wheezing, or decreased air movement and decreased air movement. Heart no right ventricular heave, distant heart sounds, or s3 gallop. GI bowel sounds: hyperactive (borborygmi) and diminished or absent. Extremities no cyanosis or clubbing and edema. Neurologic no somnolence, confusion, or decreased mental status. Assisstive Devices: ambulates with walker. Results - Laboratory Findings CBC and BMP: 12/03/23 12:57 12/03/23 12:57 PT/INR, D-dimer PT 13.6 sec (10.0-12.5) H 12/03/23 12:57 INR 1.3 (<1.2) H 12/03/23 12:57 Abnormal lab findings: Abnormal Labs 12/03/23 12/03/23 12/03/23 12:57 12:57 12:57 WBC 18.1 H RBC 4.26 L Neutrophils # 16.0 H Lymphocytes # 0.9 L PT 13.6 H INR 1.3 H Glucose 146 H POC Glucose (mg/dL) Total Bilirubin 1.6 H Alkaline Phosphatase 135 H Total Protein 6.2 L 12/03/23 17:12 WBC RBC Neutrophils # Lymphocytes # PT INR Glucose POC Glucose (mg/dL) 322 H Total Bilirubin Alkaline Phosphatase Total Protein - Diagnostic Findings Chest x-ray: image reviewed Assessment and Plan Plan: Acute on chronic hypoxic respiratory failure the patient is currently on 6 L of O2 nasal cannula Acute left lower lobe pneumonia with obvious area of consolidation of the left lung base Acute exacerbation of chronic COPD. The patient is known to have COPD, He has an FEV1 of 83% and he is stable for now. He is on Yupelri and Budesonide/ afromoterol nebs and uses ventolin rescue inhaler on an as-needed basis. His COPD is stable. chronic exertional dyspnea with hypoxemia secondary to a component of COPD and addition to obesity and deconditioning. He may have an underlying restrictive physiology related to his body habitus. Spirometry shows an FEV1 of 83% of predicted . He has a rolling walker. He has obtained a new walker. obstructive sleep apnea syndrome, he is currently on a CPAP pressure of 13 cm of water with C-Flex of 3. He is extremely compliant is averaging more than 7 hours of CPAP use and his treatment essentially successful without any residual apneas while being on the treatment. He is utilizing the air fit F 20 facemask large size. I will refill his supplies through [facility] . He is doing well and another compliancy evaluation and no issues. malignant tumor of urinary bladder, transurethral resection of bladder tumor and the patient will have a follow-up evaluation sometime next year with urology. Under the care of Dr Zamora. A follow-up urine cytology came back negative for malignancy. A follow-up CT urography came back negative for malignancy. There was a incidental 7 mm nodule in the right lower lobe. the patient has been told that he has been disease-free by his urologist based on a recent scope that he underwent. bladder cancer solitary nodule of lung, incidental 7 mm posterior left basilar pulmonary nodule, not seen previously on previous images. There was also prominent dependent atelectasis without any pleural effusions. A CAT scan of the chest was recommended to reassess and also survey the remainder of the lungs. The patient will see him back in 6 months time and follow-up and we'll discuss the CAT scan findings.HIs had a CT of the chest on 09/27/23 and the nodule is 4 mm and stable and the subcarinal LN is also stable obesity mitral valve regurgitation-mitral valve has shown moderate degree of regurgitation based on an echocardiogram that was done in October 2015. This is being monitored by Dr. Jarquin. Echo is stable. He has a moderate /severe MR and the finding according to cardiology has been stable benign prostatic hyperplasia paroxysmal atrial fibrillation, current rhythm is sinus. type 2 diabetes mellitus hypertensive disorder, hypertensive heart disease with concentric LVH based on echocardiogram and a preserved LV function secondary pulmonary hypertension, estimated PASP of >60 edema of lower extremity, lasix 40 mg daily and he is improved and he has less swelling in the legs Plan Titrate oxygen flow to maintain saturation above 90% Check procalcitonin level Cover the patient with Rocephin and Zithromax Sputum Gram stain and culture Obtain blood cultures DuoNeb nebulized treatments [id number] Check pro BNP level Resume home medications Allowed the patient to utilize CPAP from home Will continue to follow
[2023-12-04 06:25] LABS: Glucose,Whole Blood 189 mg/dL (70-110)
[2023-12-04] MEDS: REVEFENACIN INHALATION SCH (07:59)
[2023-12-04] MEDS: ATORVASTATIN 20 MG TAB PO SCH (08:08)
[2023-12-04] MEDS: MULTIVITAMINS, THERA 1 EACH TAB PO SCH (08:08)
[2023-12-04] MEDS: POTASSIUM CHLORIDE ER 10 MEQ TAB.ER.PRT PO SCH (08:08)
[2023-12-04] MEDS: FUROSEMIDE 40 MG TAB PO SCH (08:08)
[2023-12-04] MEDS: FINASTERIDE 5 MG TAB PO SCH (08:08)
[2023-12-04] MEDS: ENOXAPARIN 40 MG/0.4 ML SYRINGE SQ SCH (08:08)
[2023-12-04] MEDS ORDERED: NON FORMULARY DRUG (Glucosam/Chon-Msm1/C/Mang/Bosw [Glucosamine-Chondroitin Tablet] 1 EACH PO SCH (09:00)
[2023-12-04] MEDS ORDERED: [UNRECOGNIZED DRUG - OTHER] PO SCH (09:00)
[2023-12-04 10:33] LABS: ALT 30 U/L (10-49); AST 29 U/L (14-35); Albumin 3.6 g/dL (3.8-4.9); Albumin/Globulin Ratio 1.44 Ratio (1.60-3.17); Alkaline Phosphatase 127 U/L (41-126); Blood Urea Nitrogen 23.6 mg/dL (9.0-27.0); Calcium 8.8 mg/dL (8.7-10.3); Carbon Dioxide 19.6 mmol/L (21.6-31.8); Chloride 107 mmol/L (96-109); Globulin 2.5 g/dL (1.6-3.3); Glucose 189 mg/dL (70-110); Potassium 4.5 mmol/L (3.5-5.5); Sodium 140 mmol/L (135-145); Total Bilirubin 0.5 mg/dL (0.3-1.2); Total Protein 6.1 g/dL (6.2-8.2)
[2023-12-04 10:35] LABS: Basophils # (A) 0.02 X 10*3/uL (0.00-0.10); Basophils % (A) 0.1 %; Eosinophils # (A) 0 X 10*3/uL (0.04-0.35); Eosinophils % (A) 0 %; HCT 38.3 % (39.6-50.0); HGB 12.4 g/dL (13.0-17.0); Lymphocytes # (A) 0.83 X 10*3/uL (0.90-5.00); Lymphocytes % (A) 4.9 %; MCH 30.2 pg (27.0-32.0); MCHC 32.4 g/dL (32.0-37.0); MCV 93.4 FL (80.0-97.0); Mean Platelet Volume 9.8 FL (9.5-12.2); Monocytes # (A) 0.61 X 10*3/uL (0.20-1.00); Monocytes % (A) 3.6 %; NRBC Per 100 WBC 0 X 10*3/uL (0.00-0.01); Neutrophils # (A) 15.32 X 10*3/uL (1.80-7.70); Neutrophils % (A) 90.8 %; Platelet Count 217 X 10*3/uL (140-440); RDW 13.5 % (11.5-14.5); WBC 16.88 X 10*3/uL (4.50-10.00)
[2023-12-04] MEDS: DILTIAZEM CD 120 MG CAP.ER.24H PO SCH (11:02)
--- NOTE | 2023-12-04 13:49 | XR ---
EXAMINATION TYPE: XR chest 2V DATE OF EXAM: 12/04/2023 7:09 AM CLINICAL INDICATION:Male, 83 years old with history of pneumonia; [facility] COMPARISON: 12/03/2023 x-ray and 09/27/2023 CT. TECHNIQUE: XR chest 2V. Frontal and lateral views of the chest.. FINDINGS: Redemonstration of moderate cardiomegaly with mild central vascular congestion and diffuse interstiti al coarsening, edema versus chronic changes; appearance is unchanged. Ill-defined hazy opacities in the mid to lower lung zones bilaterally with minimal obscuration of the costophrenic angles. No visible pneumothorax. Osseous structures are grossly unchanged. IMPRESSION: No significant interval change, with cardiopulmonary findings above.
[2023-12-04 14:03] LABS: Glucose,Whole Blood 242 mg/dL (70-110)
[2023-12-04] MEDS: AZITHROMYCIN 500 MG TAB PO SCH (14:09)
[2023-12-04 16:36] LABS: Glucose,Whole Blood 213 mg/dL (70-110)
--- NOTE | 2023-12-04 20:19 | P.PN ---
Subjective Progress Note Date: 12/04/23 This is an 83-year-old male patient with known history of COPD who came into the emergency department having difficulties in breathing and the patient became progressively more short of breath over the past few days. The patient has been maintained on a combination of Yupelri and budesonide/Perforomist nebulized treatments on outpatient basis the patient has been utilizing Ventolin rescue inhaler on a as needed basis. He has chronic exertional dyspnea. His baseline FEV1 is noted of 83% of predicted. The patient has been on oxygen 2 L/min nasal cannula. His previous CAT scan of the chest was done on 09/27/2023 showed a stable 4 mm left lower lobe pulmonary nodule which is being monitored and the patient has stable hilar mediastinal adenopathy which is also being monitored. The largest lymph node was in the subcarinal area measuring around 1.2 cm in size. He is also known to have chronic A-fib, diabetes mellitus type 2, hypertension and secondary pulm hypertension. He has also previous history of bladder cancer under the care of urology. Typically wears oxygen 2 L/min nasal cannula. He has obstructive sleep apnea compliant with CPAP therapy at a pressure of 13 cm of water. He has symptoms of BPH, and chronic lower extremity edema. In the emergency department, the patient was experiencing difficulties in breathing, cough and congestion and chest tightness and wheezing. The white cell count was at 18 with a hemoglobin of 13 and a platelet count of 226. INR was at 1.3 with a PT of 13.6 BUN of 20 with a creatinine of 0.7 and sodium levels 137, the viral screen was negative. LFTs were essentially within normal limits. His EKG showed normal sinus rhythm with a first-degree AV block. No acute ischemic changes. Chest x-ray that was done in the emergency department was reviewed and the patient was found to have cardiomegaly and increased interstitial markings bilaterally and an area of consolidation of the left lung base consistent with underlying pneumonia. Malignancy is felt to be less likely as the patient's CAT scan of the chest that was done on 09/27/2023 showed only a stable 4 mm nodule left lower lobe and diffuse emphysema. The patient accordingly was started on Rocephin and Zithromax. He is currently on IV Solu- Medrol. He is on DuoNeb nebulized treatments [id number]. He is currently on oxygen at 6 L nasal cannula. On today's evaluation of 12/04/2023, the patient is being seen for a follow-up. The patient is doing well. Less short of breath compared to yesterday. Currently he is on oxygen at 4 L of nasal cannula. Pulse ox is 90%. The repeat chest x-ray that was done today shows no significant interval change and the patient continues to have moderate cardiomegaly and pulm vessel congestion and interstitial edema and ill-defined hazy opacities in the mid and lower lung zones bilaterally. The patient remains on bronchodilators. The patient remains on steroids. The patient remains on Rocephin and Zithromax. The patient is al so on Lasix 40 mg p.o. on a daily basis. Blood work from today shows a white cell count of 16 hemoglobin 4.4 and a platelet count of 270. BUN is at 23 with a creatinine of 0.8 and sodium is at 140. Glucose of 213. LFTs are essentially within normal limits. The patient has a procalcitonin level of 0.5. Objective - Vital Signs Vital signs: Vital Signs Temp 98.3 F 12/04/23 07:26 Pulse 90 12/04/23 10:06 Resp 20 12/04/23 07:26 BP 146/83 12/04/23 07:26 Pulse Ox 90 L 12/04/23 11:25 FiO2 Intake & Output 12/03/23 12/04/23 12/04/23 18:59 06:59 18:59 Weight 134.717 kg Other: Voiding Method Toilet Diaper # Voids 1 2 - Exam General Appearance no diaphoresis, dyspnea, pallor, or respiratory distress and speech not interrupted by breaths, not cachectic, well nourished, appears well, and morbid obesity. HEENT no pursed lip breathing, jugular venous distention, mucous membrane cyanosis, or perioral cyanosis and mallampati classification: class 1 and Mallampati Classification: Class 4. Chest no retractions, rhonchi, hyperinflation, barrel chest, sternocleidomastoid muscle contractions, supraclavicular retractions, intercostal retractions, prolonged expiratory wheezing, or decreased air movement and decreased air movement. Heart no right ventricular heave, distant heart sounds, or s3 gallop. GI bowel sounds: hyperactive (borborygmi) and diminished or absent. Extremities no cyanosis or clubbing and edema. Neurologic no somnolence, confusion, or decreased mental status. Assisstive Devices: ambulates with walker. - Labs CBC & Chem 7: 12/04/23 06:39 12/04/23 06:34 Labs: Abnormal Lab Results - Last 24 Hours (Table) 12/03/23 12/03/23 12/03/23 Range/Units 12:57 12:57 12:57 WBC 18.1 H (3.8-10.6) k/uL RBC 4.26 L (4.30-5.90) m/uL Hgb (13.0-17.0) g/dL Hct (39.6-50.0) % Immature Gran # (0.00-0.04) X 10*3/uL Neutrophils # 16.0 H (1.3-7.7) k/uL Lymphocytes # 0.9 L (1.0-4.8) k/uL Eosinophils # (0.04-0.35) X 10*3/uL PT 13.6 H (10.0-12.5) sec INR 1.3 H (<1.2) Carbon Dioxide (21.6-31.8) mmol/L Anion Gap (4.00-12.00) mmol/L BUN/Creatinine Ratio (12.00-20.00) Ratio Glucose 146 H (74-99) mg/dL POC Glucose (mg/dL) (70-110) mg/dL Hemoglobin A1c (<=6.0) % Total Bilirubin 1.6 H (0.2-1.3) mg/dL Alkaline Phosphatase 135 H (38-126) U/L Total Protein 6.2 L (6.3-8.2) g/dL Albumin (3.8-4.9) g/dL Albumin/Globulin Ratio (1.60-3.17) Ratio Procalcitonin (0.02-0.09) ng/mL 12/03/23 12/03/23 12/03/23 Range/Units 12:57 17:12 20:42 WBC (3.8-10.6) k/uL RBC (4.30-5.90) m/uL Hgb (13.0-17.0) g/dL Hct (39.6-50.0) % Immature Gran # (0.00-0.04) X 10*3/uL Neutrophils # (1.3-7.7) k/uL Lymphocytes # (1.0-4.8) k/uL Eosinophils # (0.04-0.35) X 10*3/uL PT (10.0-12.5) sec INR (<1.2) Carbon Dioxide (21.6-31.8) mmol/L Anion Gap (4.00-12.00) mmol/L BUN/Creatinine Ratio (12.00-20.00) Ratio Glucose (74-99) mg/dL POC Glucose (mg/dL) 322 H 282 H (70-110) mg/dL Hemoglobin A1c (<=6.0) % Total Bilirubin (0.2-1.3) mg/dL Alkaline Phosphatase (38-126) U/L Total Protein (6.3-8.2) g/dL Albumin (3.8-4.9) g/dL Albumin/Globulin Ratio (1.60-3.17) Ratio Procalcitonin 0.50 H (0.02-0.09) ng/mL 12/04/23 12/04/23 12/04/23 Range/Units 06:24 06:34 06:39 WBC (3.8-10.6) k/uL RBC (4.30-5.90) m/uL Hgb (13.0-17.0) g/dL Hct (39.6-50.0) % Immature Gran # (0.00-0.04) X 10*3/uL Neutrophils # (1.3-7.7) k/uL Lymphocytes # (1.0-4.8) k/uL Eosinophils # (0.04-0.35) X 10*3/uL PT (10.0-12.5) sec INR (<1.2) Carbon Dioxide 19.6 L (21.6-31.8) mmol/L Anion Gap 13.40 H (4.00-12.00) mmol/L BUN/Creatinine Ratio 29.50 H (12.00-20.00) Ratio Glucose 189 H (74-99) mg/dL POC Glucose (mg/dL) 189 H (70-110) mg/dL Hemoglobin A1c 6.7 H (<=6.0) % Total Bilirubin (0.2-1.3) mg/dL Alkaline Phosphatase 127 H (38-126) U/L Total Protein 6.1 L (6.3-8.2) g/dL Albumin 3.6 L (3.8-4.9) g/dL Albumin/Globulin Ratio 1.44 L (1.60-3.17) Ratio Procalcitonin (0.02-0.09) ng/mL 12/04/23 Range/Units 06:39 WBC 16.88 H (3.8-10.6) k/uL RBC 4.10 L (4.30-5.90) m/uL Hgb 12.4 L (13.0-17.0) g/dL Hct 38.3 L (39.6-50.0) % Immature Gran # 0.10 H (0.00-0.04) X 10*3/uL Neutrophils # 15.32 H (1.3-7.7) k/uL Lymphocytes # 0.83 L (1.0-4.8) k/uL Eosinophils # 0 L (0.04-0.35) X 10*3/uL PT (10.0-12.5) sec INR (<1.2) Carbon Dioxide (21.6-31.8) mmol/L Anion Gap (4.00-12.00) mmol/L BUN/Creatinine Ratio (12.00-20.00) Ratio Glucose (74-99) mg/dL POC Glucose (mg/dL) (70-110) mg/dL Hemoglobin A1c (<=6.0) % Total Bilirubin (0.2-1.3) mg/dL Alkaline Phosphatase (38-126) U/L Total Protein (6.3-8.2) g/dL Albumin (3.8-4.9) g/dL Albumin/Globulin Ratio (1.60-3.17) Ratio Procalcitonin (0.02-0.09) ng/mL Microbiology - Last 24 Hours (Table) 12/03/23 20:17 Gram Stain - Preliminary Sputum Assessment and Plan Plan: Acute on chronic hypoxic respiratory failure the patient is currently on 4 L of O2 nasal cannula Acute left lower lobe pneumonia with obvious area of consolidation of the left lung base, chest x-ray findings from today are essentially unchanged. The patient remains on Rocephin and Zithromax. Cultures are still pending. Procalcitonin level is at 0.5. Acute exacerbation of chronic COPD. The patient is known to have COPD, He has an FEV1 of 83% and he is stable for now. He is on Yupelri and Budesonide/ afromoterol nebs and uses ventolin rescue inhaler on an as-needed basis. His COPD is stable. chronic exertional dyspnea with hypoxemia secondary to a component of COPD and addition to obesity and deconditioning. He may have an underlying restrictive physiology related to his body habitus. Spirometry shows an FEV1 of 83% of predicted . He has a rolling walker. He has obtained a new walker. obstructive sleep apnea syndrome, he is currently on a CPAP pressure of 13 cm of water with C-Flex of 3. He is extremely compliant is averaging more than 7 hours of CPAP use and his treatment essentially successful without any residual apneas while being on the treatment. He is utilizing the air fit F 20 facemask large size. I will refill his supplies through [employer] . He is doing well and another compliancy evaluation and no issues. malignant tumor of urinary bladder, transurethral resection of bladder tumor and the patient will have a follow-up evaluation sometime next year with urology. Under the care of Dr Zamora. A follow-up urine cytology came back negative for malignancy. A follow-up CT urography came back negative for malignancy. There was a incidental 7 mm nodule in the right lower lobe. the patient has been told that he has been disease-free by his urologist based on a recent scope that he underwent. bladder cancer solitary nodule of lung, incidental 7 mm posterior left basilar pulmonary nodule, not seen previously on previous images. There was also prominent dependent atelectasis without any pleural effusions. A CAT scan of the chest was recommended to reassess and also survey the remainder of the lungs. The patient will see him back in 6 months time and follow-up and we'll discuss the CAT scan findings.HIs had a CT of the chest on 09/27/23 and the nodule is 4 mm and stable and the subcarinal LN is also stable obesity mitral valve regurgitation-mitral valve has shown moderate degree of regurgitation based on an echocardiogram that was done in October 2015. This is being monitored by Dr. Samman. Echo is stable. He has a moderate /severe MR and the finding according to cardiology has been stable benign prostatic hyperplasia paroxysmal atrial fibrillation, current rhythm is sinus. type 2 diabetes mellitus hypertensive disorder, hypertensive heart disease with concentric LVH based on echocardiogram and a preserved LV function secondary pulmonary hypertension, estimated PASP of >60 edema of lower extremity, lasix 40 mg daily and he is improved and he has less swelling in the legs Plan Titrate oxygen flow to maintain saturation above 90%, currently on 4 L Check procalcitonin level is at 0.5 Cover the patient with Rocephin and Zithromax Sputum Gram stain and culture Obtain blood cultures DuoNeb nebulized treatments [id number] Check pro BNP level is at 520 Switch this patient to Lasix 40 mg IV every 24 hours Resume home medications Allowed the patient to utilize CPAP from home Will continue to follow
[2023-12-04 20:52] LABS: Glucose,Whole Blood 208 mg/dL (70-110)
[2023-12-04] MEDS: FUROSEMIDE 10 MG/ML 4 ML VIAL IV SCH (21:48)
[2023-12-05 06:05] LABS: Glucose,Whole Blood 190 mg/dL (70-110)
[2023-12-05 11:52] LABS: Glucose,Whole Blood 166 mg/dL (70-110)
[2023-12-05] MEDS: guaiFENesin 600 MG TABLET.ER PO SCH (13:01)
--- NOTE | 2023-12-05 13:04 | P.PN ---
Subjective Progress Note Date: 12/05/23 This is an 83-year-old male patient with known history of COPD who came into the emergency department having difficulties in breathing and the patient became progressively more short of breath over the past few days. The patient has been maintained on a combination of Yupelri and budesonide/Perforomist nebulized treatments on outpatient basis the patient has been utilizing Ventolin rescue inhaler on a as needed basis. He has chronic exertional dyspnea. His baseline FEV1 is noted of 83% of predicted. The patient has been on oxygen 2 L/min nasal cannula. His previous CAT scan of the chest was done on 09/27/2023 showed a stable 4 mm left lower lobe pulmonary nodule which is being monitored and the patient has stable hilar mediastinal adenopathy which is also being monitored. The largest lymph node was in the subcarinal area measuring around 1.2 cm in size. He is also known to have chronic A-fib, diabetes mellitus type 2, hypertension and secondary pulm hypertension. He has also previous history of bladder cancer under the care of urology. Typically wears oxygen 2 L/min nasal cannula. He has obstructive sleep apnea compliant with CPAP therapy at a pressure of 13 cm of water. He has symptoms of BPH, and chronic lower extremity edema. In the emergency department, the patient was experiencing difficulties in breathing, cough and congestion and chest tightness and wheezing. The white cell count was at 18 with a hemoglobin of 13 and a platelet count of 226. INR was at 1.3 with a PT of 13.6 BUN of 20 with a creatinine of 0.7 and sodium levels 137, the viral screen was negative. LFTs were essentially within normal limits. His EKG showed normal sinus rhythm with a first-degree AV block. No acute ischemic changes. Chest x-ray that was done in the emergency department was reviewed and the patient was found to have cardiomegaly and increased interstitial markings bilaterally and an area of consolidation of the left lung base consistent with underlying pneumonia. Malignancy is felt to be less likely as the patient's CAT scan of the chest that was done on 09/27/2023 showed only a stable 4 mm nodule left lower lobe and diffuse emphysema. The patient accordingly was started on Rocephin and Zithromax. He is currently on IV Solu- Medrol. He is on DuoNeb nebulized treatments [id number]. He is currently on oxygen at 6 L nasal cannula. On today's evaluation of 12/04/2023, the patient is being seen for a follow-up. The patient is doing well. Less short of breath compared to yesterday. Currently he is on oxygen at 4 L of nasal cannula. Pulse ox is 90%. The repeat chest x-ray that was done today shows no significant interval change and the patient continues to have moderate cardiomegaly and pulm vessel congestion and interstitial edema and ill-defined hazy opacities in the mid and lower lung zones bilaterally. The patient remains on bronchodilators. The patient remains on steroids. The patient remains on Rocephin and Zithromax. The patient is al so on Lasix 40 mg p.o. on a daily basis. Blood work from today shows a white cell count of 16 hemoglobin 4.4 and a platelet count of 270. BUN is at 23 with a creatinine of 0.8 and sodium is at 140. Glucose of 213. LFTs are essentially within normal limits. The patient has a procalcitonin level of 0.5. 12/05/2023, the patient is being seen for a follow-up. Patient is improving. Less short of breath compared to yesterday. Remains on same antibiotic coverage. Sputum Gram stain and culture blood culture still pending. Meanwhile, the patient remains on a combination of Rocephin and Zithromax. The patient was also given Lasix 40 mg IV on a daily basis and the patient remains in negative fluid balance and is producing excellent urine output. He is currently on 4 L of O2 nasal cannula. His pulse ox in the order of 90 to 92%. No chest pain. No pleurisy. No hemoptysis. No other complaints otherwise for now. Objective - Vital Signs Vital signs: Vital Signs Temp 97.6 F 12/05/23 07:19 Pulse 78 12/05/23 09:38 Resp 24 12/05/23 07:19 BP 144/66 12/05/23 07:19 Pulse Ox 89 L 12/05/23 07:19 FiO2 Intake & Output 12/04/23 12/05/23 12/05/23 18:59 06:59 18:59 Other: Voiding Method Toilet Toilet Diaper # Voids 1 2 - Exam General Appearance no diaphoresis, dyspnea, pallor, or respiratory distress and speech not interrupted by breaths, not cachectic, well nourished, appears well, and morbid obesity. HEENT no pursed lip breathing, jugular venous distention, mucous membrane cyanosis, or perioral cyanosis and mallampati classification: class 1 and Mallampati Classification: Class 4. Chest no retractions, rhonchi, hyperinflation, barrel chest, sternocleidomastoid muscle contractions, supraclavicular retractions, intercostal retractions, prolonged expiratory wheezing, or decreased air movement and decreased air movement. Heart no right ventricular heave, distant heart sounds, or s3 gallop. GI bowel sounds: hyperactive (borborygmi) and diminished or absent. Extremities no cyanosis or clubbing and edema. Neurologic no somnolence, confusion, or decreased mental status. Assisstive Devices: ambulates with walker. - Labs CBC & Chem 7: 12/04/23 06:39 12/04/23 06:34 Labs: Abnormal Lab Results - Last 24 Hours (Table) 12/04/23 12/04/23 12/04/23 Range/Units 06:34 06:39 13:59 WBC 16.88 H (4.50-10.00) X 10*3/uL RBC 4.10 L (4.40-5.60) X 10*6/uL Hgb 12.4 L (13.0-17.0) g/dL Hct 38.3 L (39.6-50.0) % Immature Gran # 0.10 H (0.00-0.04) X 10*3/uL Neutrophils # 15.32 H (1.80-7.70) X 10*3/uL Lymphocytes # 0.83 L (0.90-5.00) X 10*3/uL Eosinophils # 0 L (0.04-0.35) X 10*3/uL Carbon Dioxide 19.6 L (21.6-31.8) mmol/L Anion Gap 13.40 H (4.00-12.00) mmol/L BUN/Creatinine Ratio 29.50 H (12.00-20.00) Ratio Glucose 189 H (70-110) mg/dL POC Glucose (mg/dL) 242 H (70-110) mg/dL Alkaline Phosphatase 127 H (41-126) U/L Total Protein 6.1 L (6.2-8.2) g/dL Albumin 3.6 L (3.8-4.9) g/dL Albumin/Globulin Ratio 1.44 L (1.60-3.17) Ratio 12/04/23 12/04/23 12/05/23 Range/Units 16:34 20:49 06:03 WBC (4.50-10.00) X 10*3/uL RBC (4.40-5.60) X 10*6/uL Hgb (13.0-17.0) g/dL Hct (39.6-50.0) % Immature Gran # (0.00-0.04) X 10*3/uL Neutrophils # (1.80-7.70) X 10*3/uL Lymphocytes # (0.90-5.00) X 10*3/uL Eosinophils # (0.04-0.35) X 10*3/uL Carbon Dioxide (21.6-31.8) mmol/L Anion Gap (4.00-12.00) mmol/L BUN/Creatinine Ratio (12.00-20.00) Ratio Glucose (70-110) mg/dL POC Glucose (mg/dL) 213 H 208 H 190 H (70-110) mg/dL Alkaline Phosphatase (41-126) U/L Total Protein (6.2-8.2) g/dL Albumin (3.8-4.9) g/dL Albumin/Globulin Ratio (1.60-3.17) Ratio Microbiology - Last 24 Hours (Table) 12/03/23 14:00 Blood Culture - Preliminary Blood 12/03/23 14:15 Blood Culture - Preliminary Blood 12/03/23 20:17 Gram Stain - Preliminary Sputum Assessment and Plan Plan: Acute on chronic hypoxic respiratory failure the patient is currently on 4 L of O2 nasal cannula, oxygenation is stable Acute left lower lobe pneumonia with obvious area of consolidation of the left lung base, chest x-ray findings from today are essentially unchanged. The patient remains on Rocephin and Zithromax. Cultures are still pending. Procalcitonin level is at 0.5. Clinically the short of breath Acute exacerbation of chronic COPD. The patient is known to have COPD, He has an FEV1 of 83% and he is stable for now. He is on Yupelri and Budesonide/ afromoterol nebs and uses ventolin rescue inhaler on an as-needed basis. His COPD is stable. chronic exertional dyspnea with hypoxemia secondary to a component of COPD and addition to obesity and deconditioning. He may have an underlying restrictive physiology related to his body habitus. Spirometry shows an FEV1 of 83% of predicted . He has a rolling walker. He has obtained a new walker. obstructive sleep apnea syndrome, he is currently on a CPAP pressure of 13 cm of water with C-Flex of 3. He is extremely compliant is averaging more than 7 hours of CPAP use and his treatment essentially successful without any residual apneas while being on the treatment. He is utilizing the air fit F 20 facemask large size. I will refill his supplies through [employer] . He is doing well and another compliancy evaluation and no issues. malignant tumor of urinary bladder, transurethral resection of bladder tumor and the patient will have a follow-up evaluation sometime next year with urology. Under the care of Dr Zamora. A follow-up urine cytology came back negative for malignancy. A follow-up CT urography came back negative for malignancy. There was a incidental 7 mm nodule in the right lower lobe. the patient has been told that he has been disease-free by his urologist based on a recent scope that he underwent. bladder cancer solitary nodule of lung, incidental 7 mm posterior left basilar pulmonary nodule, not seen previously on previous images. There was also prominent dependent atelectasis without any pleural effusions. A CAT scan of the chest was recommended to reassess and also survey the remainder of the lungs. The patient will see him back in 6 months time and follow-up and we'll discuss the CAT scan findings.HIs had a CT of the chest on 09/27/23 and the nodule is 4 mm and stable a nd the subcarinal LN is also stable obesity mitral valve regurgitation-mitral valve has shown moderate degree of regurgitation based on an echocardiogram that was done in October 2015. This is being monitored by Dr. Jarquin. Echo is stable. He has a moderate /severe MR and the finding according to cardiology has been stable benign prostatic hyperplasia paroxysmal atrial fibrillation, current rhythm is sinus. type 2 diabetes mellitus hypertensive disorder, hypertensive heart disease with concentric LVH based on echocardiogram and a preserved LV function secondary pulmonary hypertension, estimated PASP of >60 edema of lower extremity, lasix 40 mg daily and he is improved and he has less swelling in the legs Plan Clinically improving Titrate oxygen flow to maintain saturation above 90%, currently on 4 L Check procalcitonin level is at 0.5 Continue to cover the patient with Rocephin and Zithromax Sputum Gram stain and culture still pending Obtain blood cultures still pending DuoNeb nebulized treatments [id number] Check pro BNP level is at 520 Continue this patient to Lasix 40 mg IV every 24 hours Resume home medications Allowed the patient to utilize CPAP from home Will continue to follow
[2023-12-05 16:33] LABS: Glucose,Whole Blood 195 mg/dL (70-110)
[2023-12-05 20:07] LABS: Glucose,Whole Blood 217 mg/dL (70-110)
--- NOTE | 2023-12-06 00:54 | P.PN ---
Subjective Progress Note Date: 12/04/23 Patient is a 83-year-old male with a past medical history of COPD on home oxygen, hypertension, hyperlipidemia, diabetes type 2 [id number] obstructive sleep apnea and history of bladder cancer s/p surgery and prior history of smoking presents to ER with complaints of shortness of breath and co ugh for the past 3 to 4 days. Patient does have cough with light yellow sputum production. Denies any fever or chills. No leg swelling. No calf tenderness. No nausea vomiting abdominal pain or diarrhea. EKG showed sinus rhythm with first-degree AV block Chest x-ray showed COPD and changes of chronic interstitial pulmonary fibrosis with bilateral lower lobe area of infiltrate. Correlate for pneumonia. Superimposed gestational pneumonitis are venous congestion in the differential diagnosis. Laboratory data showed WBC 18.1 hemoglobin 13.1 and platelets 226 INR 1.3 sodium 137 potassium 4.0 chloride 107 bicarb is 22 BUN 20 and creatinine 0.7 and blood sugar 146 lactic acid 1.5 total bili 1.6 alk phos 135 proBNP 520 Influenza AB RSV and COVID-19 PCR not detected. 12/04/2023 Patient is currently sitting in his chair. Awake alert and oriented. Requiring 4 L oxygen via nasal cannula. Repeat chest x-ray showed no significant interval change and patient continues to yell moderate cardiomegaly and pulmonary vascular congestion and interstitial edema and ill-defined hazy opacities in the mid and lower lung zones bilaterally. Patient is being continued on antibiotics ceftriaxone azithromycin. Also on IV steroids and bronchodilators. Patient is also on Lasix 40 g p.o. daily. Laboratory data showed WBC 16.8 hemoglobin 12.4 and platelets 217 sodium 140 potassium 4.5 chloride 107 bicarb is 19.6 BUN 23.6 and creatinine 0.18 blood sugar 189 pain with A1c 6.7. Albumin 3.6 alk phos 127. Pulmonary is on board. Current medications reviewed. Objective - Vital Signs Vital signs: Vital Signs Temp 98.1 F 12/04/23 14:10 Pulse 80 12/04/23 21:01 Resp 23 12/04/23 14:10 BP 154/53 12/04/23 14:10 Pulse Ox 90 L 12/04/23 18:50 FiO2 Intake & Output 12/04/23 12/04/23 12/05/23 06:59 18:59 06:59 Other: Voiding Method Toilet Diaper # Voids 2 1 - Exam PHYSICAL EXAMINATION: Patient is lying in the bed mild acute acute distress, awake alert and oriented. Morbidly obese. HEENT: Normocephalic. Neck is supple. Pupils reactive. Nostrils clear. Oral cavity is moist. Neck reveals no JVD, carotid bruits, or thyromegaly. CHEST EXAMINATION: Trachea is central. Symmetrical expansion. Bilateral diminished sounds and expiratory wheezing and minimal air entry. CARDIAC: Normal S1, S2 with no gallops. Systolic murmur. ABDOMEN: Soft. Bowel sounds present. No organomegaly. No abdominal bruits. Extremities: reveal no edema. No clubbing or cyanosis Neurologically awake, alert, oriented x3 with well-coordinated movements. No gross focal deficits noted Skin: No rash or skin lesions. Psychiatric: Coperative. Nonsuicidal Musculoskeletal: No joint swelling or deformity. Normal range of motion. - Labs CBC & Chem 7: 12/04/23 06:39 12/04/23 06:34 Labs: Abnormal Lab Results - Last 24 Hours (Table) 12/03/23 12/04/23 12/04/23 Range/Units 12:57 06:24 06:34 WBC (4.50-10.00) X 10*3/uL RBC (4.40-5.60) X 10*6/uL Hgb (13.0-17.0) g/dL Hct (39.6-50.0) % Immature Gran # (0.00-0.04) X 10*3/uL Neutrophils # (1.80-7.70) X 10*3/uL Lymphocytes # (0.90-5.00) X 10*3/uL Eosinophils # (0.04-0.35) X 10*3/uL Carbon Dioxide 19.6 L (21.6-31.8) mmol/L Anion Gap 13.40 H (4.00-12.00) mmol/L BUN/Creatinine Ratio 29.50 H (12.00-20.00) Ratio Glucose 189 H (70-110) mg/dL POC Glucose (mg/dL) 189 H (70-110) mg/dL Hemoglobin A1c (<=6.0) % Alkaline Phosphatase 127 H (41-126) U/L Total Protein 6.1 L (6.2-8.2) g/dL Albumin 3.6 L (3.8-4.9) g/dL Albumin/Globulin Ratio 1.44 L (1.60-3.17) Ratio Procalcitonin 0.50 H (0.02-0.09) ng/mL 12/04/23 12/04/23 12/04/23 Range/Units 06:39 06:39 13:59 WBC 16.88 H (4.50-10.00) X 10*3/uL RBC 4.10 L (4.40-5.60) X 10*6/uL Hgb 12.4 L (13.0-17.0) g/dL Hct 38.3 L (39.6-50.0) % Immature Gran # 0.10 H (0.00-0.04) X 10*3/uL Neutrophils # 15.32 H (1.80-7.70) X 10*3/uL Lymphocytes # 0.83 L (0.90-5.00) X 10*3/uL Eosinophils # 0 L (0.04-0.35) X 10*3/uL Carbon Dioxide (21.6-31.8) mmol/L Anion Gap (4.00-12.00) mmol/L BUN/Creatinine Ratio (12.00-20.00) Ratio Glucose (70-110) mg/dL POC Glucose (mg/dL) 242 H (70-110) mg/dL Hemoglobin A1c 6.7 H (<=6.0) % Alkaline Phosphatase (41-126) U/L Total Protein (6.2-8.2) g/dL Albumin (3.8-4.9) g/dL Albumin/Globulin Ratio (1.60-3.17) Ratio Procalcitonin (0.02-0.09) ng/mL 12/04/23 12/04/23 Range/Units 16:34 20:49 WBC (4.50-10.00) X 10*3/uL RBC (4.40-5.60) X 10*6/uL Hgb (13.0-17.0) g/dL Hct (39.6-50.0) % Immature Gran # (0.00-0.04) X 10*3/uL Neutrophils # (1.80-7.70) X 10*3/uL Lymphocytes # (0.90-5.00) X 10*3/uL Eosinophils # (0.04-0.35) X 10*3/uL Carbon Dioxide (21.6-31.8) mmol/L Anion Gap (4.00-12.00) mmol/L BUN/Creatinine Ratio (12.00-20.00) Ratio Glucose (70-110) mg/dL POC Glucose (mg/dL) 213 H 208 H (70-110) mg/dL Hemoglobin A1c (<=6.0) % Alkaline Phosphatase (41-126) U/L Total Protein (6.2-8.2) g/dL Albumin (3.8-4.9) g/dL Albumin/Globulin Ratio (1.60-3.17) Ratio Procalcitonin (0.02-0.09) ng/mL Microbiology - Last 24 Hours (Table) 12/03/23 14:00 Blood Culture - Preliminary Blood 12/03/23 14:15 Blood Culture - Preliminary Blood 12/03/23 20:17 Gram Stain - Preliminary Sputum Assessment and Plan Assessment: Acute on chronic hypoxic respiratory failure currently requiring 6 L oxygen via nasal cannula on admission. Currently at 4 L via nasal cannula. Acute bilateral lower lobe pneumonia with sepsis Acute exacerbation of COPD Obstructive sleep apnea on CPAP at home Secondary pulmonary hypertension History of bladder cancer status post transurethral resection of bladder tumor. Patient is on follow-up with urology as an outpatient. BPH Paroxysmal atrial fibrillation not on anticoagulation currently maintaining sinus rhythm Valvular heart disease with moderate to severe MR Hypertension Diabetes type 2 [id number] Morbid obesity BMI 47.9 DVT prophylaxis with Lovenox subcu Plan: Patient will be continued on oxygen supplementation. Can with IV antibiotics ceftriaxone and azithromycin. Procalcitonin level is 0.5. Urine Legionella antigen is negative. Patient will be continued on home medication including Lasix and insulin sliding scale and insulin regimen for better blood sugar control. Continue with oral Lasix. Continue with GI DVT prophylaxis. Follow-up closely. Pulmonary was consulted. Prognosis is guarded with multiple medical problems and comorbid conditions. Time with Patient: Greater than 30
--- NOTE | 2023-12-06 00:56 | P.PN ---
Subjective Progress Note Date: 12/05/23 Patient is a 83-year-old male with a past medical history of COPD on home oxygen, hypertension, hyperlipidemia, diabetes type 2 [id number] obstructive sleep apnea and history of bladder cancer s/p surgery and prior history of smoking presents to ER with complaints of shortness of breath and co ugh for the past 3 to 4 days. Patient does have cough with light yellow sputum production. Denies any fever or chills. No leg swelling. No calf tenderness. No nausea vomiting abdominal pain or diarrhea. EKG showed sinus rhythm with first-degree AV block Chest x-ray showed COPD and changes of chronic interstitial pulmonary fibrosis with bilateral lower lobe area of infiltrate. Correlate for pneumonia. Superimposed gestational pneumonitis are venous congestion in the differential diagnosis. Laboratory data showed WBC 18.1 hemoglobin 13.1 and platelets 226 INR 1.3 sodium 137 potassium 4.0 chloride 107 bicarb is 22 BUN 20 and creatinine 0.7 and blood sugar 146 lactic acid 1.5 total bili 1.6 alk phos 135 proBNP 520 Influenza AB RSV and COVID-19 PCR not detected. 12/04/2023 Patient is currently sitting in his chair. Awake alert and oriented. Requiring 4 L oxygen via nasal cannula. Repeat chest x-ray showed no significant interval change and patient continues to yell moderate cardiomegaly and pulmonary vascular congestion and interstitial edema and ill-defined hazy opacities in the mid and lower lung zones bilaterally. Patient is being continued on antibiotics ceftriaxone azithromycin. Also on IV steroids and bronchodilators. Patient is also on Lasix 40 g p.o. daily. Laboratory data showed WBC 16.8 hemoglobin 12.4 and platelets 217 sodium 140 potassium 4.5 chloride 107 bicarb is 19.6 BUN 23.6 and creatinine 0.18 blood sugar 189 pain with A1c 6.7. Albumin 3.6 alk phos 127. Pulmonary is on board. 12/05/2023 Patient is sitting in the chair. Awake alert and oriented. Breathing status is better compared to yesterday. No complaints of chest pain. No nausea or vomiting. Patient is maintained on IV steroids and also on IV Lasix 40 g daily and bronchodilators. Currently on 4 L via nasal cannula and saturating at 90%. Patient remains on antibiotics. No complaints of nausea or vomiting. Tolerating oral diet. Afebrile. Blood sugars fairly controlled. No new laboratory data today. Current medications reviewed. Objective - Vital Signs Vital signs: Vital Signs Temp 97.6 F 12/05/23 07:19 Pulse 78 12/05/23 09:38 Resp 24 12/05/23 07:19 BP 144/66 12/05/23 07:19 Pulse Ox 89 L 12/05/23 07:19 FiO2 Intake & Output 12/04/23 12/05/23 12/05/23 18:59 06:59 18:59 Output Total 300 Balance -300 Output: Urine 300 Other: Voiding Method Toilet Toilet Diaper # Voids 1 2 - Exam PHYSICAL EXAMINATION: Patient is lying in the bed mild acute acute distress, awake alert and oriented. Morbidly obese. HEENT: Normocephalic. Neck is supple. Pupils reactive. Nostrils clear. Oral cavity is moist. Neck reveals no JVD, carotid bruits, or thyromegaly. CHEST EXAMINATION: Trachea is central. Symmetrical expansion. Bilateral diminished sounds and expiratory wheezing and minimal air entry. CARDIAC: Normal S1, S2 with no gallops. Systolic murmur. ABDOMEN: Soft. Bowel sounds present. No organomegaly. No abdominal bruits. Extremities: reveal no edema. No clubbing or cyanosis Neurologically awake, alert, oriented x3 with well-coordinated movements. No gross focal deficits noted Skin: No rash or skin lesions. Psychiatric: Coperative. Nonsuicidal Musculoskeletal: No joint swelling or deformity. Normal range of motion. - Labs CBC & Chem 7: 12/04/23 06:39 12/04/23 06:34 Labs: Abnormal Lab Results - Last 24 Hours (Table) 12/04/23 12/04/23 12/04/23 Range/Units 13:59 16:34 20:49 POC Glucose (mg/dL) 242 H 213 H 208 H (70-110) mg/dL 12/05/23 Range/Units 06:03 POC Glucose (mg/dL) 190 H (70-110) mg/dL Microbiology - Last 24 Hours (Table) 12/03/23 14:00 Blood Culture - Preliminary Blood 12/03/23 14:15 Blood Culture - Preliminary Blood 12/03/23 20:17 Gram Stain - Preliminary Sputum Assessment and Plan Assessment: Acute on chronic hypoxic respiratory failure currently requiring 6 L oxygen via nasal cannula on admission. Currently at 4 L via nasal cannula. Acute bilateral lower lobe pneumonia with sepsis Acute exacerbation of COPD Obstructive sleep apnea on CPAP at home Secondary pulmonary hypertension History of bladder cancer status post transurethral resection of bladder tumor. Patient is on follow-up with urology as an outpatient. BPH Paroxysmal atrial fibrillation not on anticoagulation currently maintaining sinus rhythm Valvular heart disease with moderate to severe MR Hypertension Diabetes type 2 [id number] Morbid obesity BMI 47.9 DVT prophylaxis with Lovenox subcu Plan: Patient will be continued on oxygen supplementation. Can with IV antibiotics ceftriaxone and azithromycin. Procalcitonin level is 0.5. Urine Legionella antigen is negative. Patient will be continued on home medication including Lasix and insulin sliding scale and insulin regimen for better blood sugar control. Lasix changed to IV 40 mg daily. Continue with GI DVT prophylaxis. Follow-up closely. Pulmonary was consulted. Prognosis is guarded with multiple medical problems and comorbid conditions. Time with Patient: Greater than 30
[2023-12-06 05:45] LABS: Glucose,Whole Blood 220 mg/dL (70-110)
[2023-12-06 08:41] LABS: BUN/Creat Ratio 37.56 Ratio (12.00-20.00); Blood Urea Nitrogen 33.8 mg/dL (9.0-27.0); Calcium 9.2 mg/dL (8.7-10.3); Carbon Dioxide 20.5 mmol/L (21.6-31.8); Chloride 101 mmol/L (96-109); Glucose 214 mg/dL (70-110); Potassium 4.1 mmol/L (3.5-5.5); Sodium 138 mmol/L (135-145)
[2023-12-06 08:50] LABS: Basophils # (A) 0.13 X 10*3/uL (0.00-0.10); Basophils % (A) 0.7 %; Eosinophils % (A) 1.6 %; HCT 40.8 % (39.6-50.0); HGB 13.1 g/dL (13.0-17.0); Lymphocytes # (A) 1.23 X 10*3/uL (0.90-5.00); Lymphocytes % (A) 6.4 %; MCH 29.9 pg (27.0-32.0); MCHC 32.1 g/dL (32.0-37.0); MCV 93.2 FL (80.0-97.0); Mean Platelet Volume 9.9 FL (9.5-12.2); Monocytes # (A) 0.74 X 10*3/uL (0.20-1.00); Monocytes % (A) 3.9 %; NRBC Per 100 WBC 0 X 10*3/uL (0.00-0.01); Neutrophils # (A) 16.08 X 10*3/uL (1.80-7.70); Neutrophils % (A) 83.8 %; Platelet Count 306 X 10*3/uL (140-440); RBC 4.38 X 10*6/uL (4.40-5.60); RDW 13.8 % (11.5-14.5); WBC 19.17 X 10*3/uL (4.50-10.00)
[2023-12-06 12:04] LABS: Glucose,Whole Blood 192 mg/dL (70-110)
--- NOTE | 2023-12-06 15:02 | P.PN ---
Subjective Progress Note Date: 12/06/23 This is an 83-year-old male patient with known history of COPD who came into the emergency department having difficulties in breathing and the patient became progressively more short of breath over the past few days. The patient has been maintained on a combination of Yupelri and budesonide/Perforomist nebulized treatments on outpatient basis the patient has been utilizing Ventolin rescue inhaler on a as needed basis. He has chronic exertional dyspnea. His baseline FEV1 is noted of 83% of predicted. The patient has been on oxygen 2 L/min nasal cannula. His previous CAT scan of the chest was done on 09/27/2023 showed a stable 4 mm left lower lobe pulmonary nodule which is being monitored and the patient has stable hilar mediastinal adenopathy which is also being monitored. The largest lymph node was in the subcarinal area measuring around 1.2 cm in size. He is also known to have chronic A-fib, diabetes mellitus type 2, hypertension and secondary pulm hypertension. He has also previous history of bladder cancer under the care of urology. Typically wears oxygen 2 L/min nasal cannula. He has obstructive sleep apnea compliant with CPAP therapy at a pressure of 13 cm of water. He has symptoms of BPH, and chronic lower extremity edema. In the emergency department, the patient was experiencing difficulties in breathing, cough and congestion and chest tightness and wheezing. The white cell count was at 18 with a hemoglobin of 13 and a platelet count of 226. INR was at 1.3 with a PT of 13.6 BUN of 20 with a creatinine of 0.7 and sodium levels 137, the viral screen was negative. LFTs were essentially within normal limits. His EKG showed normal sinus rhythm with a first-degree AV block. No acute ischemic changes. Chest x-ray that was done in the emergency department was reviewed and the patient was found to have cardiomegaly and increased interstitial markings bilaterally and an area of consolidation of the left lung base consistent with underlying pneumonia. Malignancy is felt to be less likely as the patient's CAT scan of the chest that was done on 09/27/2023 showed only a stable 4 mm nodule left lower lobe and diffuse emphysema. The patient accordingly was started on Rocephin and Zithromax. He is currently on IV Solu- Medrol. He is on DuoNeb nebulized treatments [id number]. He is currently on oxygen at 6 L nasal cannula. On today's evaluation of 12/04/2023, the patient is being seen for a follow-up. The patient is doing well. Less short of breath compared to yesterday. Currently he is on oxygen at 4 L of nasal cannula. Pulse ox is 90%. The repeat chest x-ray that was done today shows no significant interval change and the patient continues to have moderate cardiomegaly and pulm vessel congestion and interstitial edema and ill-defined hazy opacities in the mid and lower lung zones bilaterally. The patient remains on bronchodilators. The patient remains on steroids. The patient remains on Rocephin and Zithromax. The patient is als o on Lasix 40 mg p.o. on a daily basis. Blood work from today shows a white cell count of 16 hemoglobin 4.4 and a platelet count of 270. BUN is at 23 with a creatinine of 0.8 and sodium is at 140. Glucose of 213. LFTs are essentially within normal limits. The patient has a procalcitonin level of 0.5. 12/05/2023, the patient is being seen for a follow-up. Patient is improving. Less short of breath compared to yesterday. Remains on same antibiotic coverage. Sputum Gram stain and culture blood culture still pending. Meanwhile, the patient remains on a combination of Rocephin and Zithromax. The patient was also given Lasix 40 mg IV on a daily basis and the patient remains in negative fluid balance and is producing excellent urine output. He is currently on 4 L of O2 nasal cannula. His pulse ox in the order of 90 to 92%. No chest pain. No pleurisy. No hemoptysis. No other complaints otherwise for now. The patient is seen today December 06, 2023 in follow-up on the regular medical floor. He is currently sitting up in a chair. Awake and alert in no acute distress. Still with some cough and congestion. He is maintaining good O2 saturations in the 90s on 4 L/min per nasal cannula. He is continued on DuoNeb inhalations, Pulmicort and performist inhalations, Solu-Medrol. Antibiotics in the form of ceftriaxone. Lovenox for DVT prophylaxis he remains on IV diuretics. No accurate I & O. Blood and sputum cultures revealed no growth. White count 19.1. Hemoglobin 13.1. Platelets 306. Sodium 138. Potassium 4.1. Bicarb 21. BUN 34. Creatinine 0.9. Glucose 214. Objective - Vital Signs Vital signs: Vital Signs Temp 98.0 F 12/06/23 07:25 Pulse 80 12/06/23 12:02 Resp 19 12/06/23 07:40 BP 158/71 12/06/23 07:25 Pulse Ox 91 L 12/06/23 07:25 FiO2 Intake & Output 12/05/23 12/06/23 12/06/23 18:59 06:59 18:59 Output Total 1100 Balance -1100 Output: Urine 1100 Other: Voiding Method Toilet Toilet Toilet # Voids 1 3 3 - Exam GENERAL EXAM: Alert, pleasant 83-year-old gentleman, up in a chair, on 4 L nasal cannula, fairly comfortable in no apparent distress. HEAD: Normocephalic. EYES: Normal reaction of pupils, equal size. NOSE: Clear with pink turbinates. THROAT: No erythema or exudates. NECK: No masses, no JVD. CHEST: No chest wall deformity. LUNGS: Equal air entry with bilateral scattered rhonchi. CVS: S1 and S2 normal with no audible murmur, regular rhythm. ABDOMEN: No hepatosplenomegaly, normal bowel sounds, no guarding or rigidity. SPINE: No scoliosis or deformity SKIN: No rashes CENTRAL NERVOUS SYSTEM: No focal deficits, tone is normal in all 4 extremities. EXTREMITIES: There is 1-2+ peripheral edema. No clubbing, no cyanosis. Peripheral pulses are intact. - Labs CBC & Chem 7: 12/06/23 04:39 12/06/23 04:39 Labs: Abnormal Lab Results - Last 24 Hours (Table) 12/05/23 12/05/23 12/06/23 Range/Units 16:32 20:04 04:39 WBC 19.17 H (4.50-10.00) X 10*3/uL RBC 4.38 L (4.40-5.60) X 10*6/uL Immature Gran # 0.69 H (0.00-0.04) X 10*3/uL Neutrophils # 16.08 H (1.80-7.70) X 10*3/uL Basophils # 0.13 H (0.00-0.10) X 10*3/uL Carbon Dioxide (21.6-31.8) mmol/L Anion Gap (4.00-12.00) mmol/L BUN (9.0-27.0) mg/dL BUN/Creatinine Ratio (12.00-20.00) Ratio Glucose (70-110) mg/dL POC Glucose (mg/dL) 195 H 217 H (70-110) mg/dL 12/06/23 12/06/23 12/06/23 Range/Units 04:39 05:41 12:02 WBC (4.50-10.00) X 10*3/uL RBC (4.40-5.60) X 10*6/uL Immature Gran # (0.00-0.04) X 10*3/uL Neutrophils # (1.80-7.70) X 10*3/uL Basophils # (0.00-0.10) X 10*3/uL Carbon Dioxide 20.5 L (21.6-31.8) mmol/L Anion Gap 16.50 H (4.00-12.00) mmol/L BUN 33.8 H (9.0-27.0) mg/dL BUN/Creatinine Ratio 37.56 H (12.00-20.00) Ratio Glucose 214 H (70-110) mg/dL POC Glucose (mg/dL) 220 H 192 H (70-110) mg/dL Microbiology - Last 24 Hours (Table) 12/03/23 20:17 Gram Stain - Final Sputum Sputum Culture - Final 12/03/23 14:00 Blood Culture - Preliminary Blood 12/03/23 14:15 Blood Culture - Preliminary Blood Assessment and Plan Assessment: Acute on chronic hypoxic respiratory failure secondary to pneumonia the patient is currently on 4 L of O2 nasal cannula, oxygenation is stable Acute left lower lobe pneumonia with obvious area of consolidation of the left lung base, chest x-ray findings from today are essentially unchanged. The patient remains on Rocephin and completed Zithromax. Cultures revealed no growth. Procalcitonin level is at 0.5. Acute exacerbation of chronic COPD secondary to above. FEV1 of 83% Chronic exertional dyspnea with hypoxemia secondary to a component of COPD and addition to obesity and deconditioning. He may have an underlying restrictive physiology related to his body habitus. Spirometry shows an FEV1 of 83% of predicted . He has a rolling walker. He has obtained a new walker Obstructive sleep apnea syndrome, he is currently on a CPAP pressure of 13 cm of water with C-Flex of 3 Malignant tumor of urinary bladder, transurethral resection of bladder tumor and the patient will have a follow-up evaluation sometime next year with urology. Un janey the care of Dr Zamora. A follow-up urine cytology came back negative for malignancy. A follow-up CT urography came back negative for malignancy. There was a incidental 7 mm nodule in the right lower lobe. the patient has been told that he has been disease-free by his urologist based on a recent scope that he underwent. Bladder cancer Solitary nodule of lung, incidental 7 mm posterior left basilar pulmonary nodule, not seen previously on previous images. There was also prominent dependent atelectasis without any pleural effusions. A CAT scan of the chest was recommended to reassess and also survey the remainder of the lungs. CT of the chest on 09/27/23 and the nodule is 4 mm and stable and the subcarinal LN is also stable Obesity Mitral valve regurgitation-mitral valve has shown moderate degree of regurgitation based on an echocardiogram that was done in October 2015. He has a moderate /severe MR and the finding according to cardiology has been stable Benign prostatic hyperplasia Paroxysmal atrial fibrillation, current rhythm is sinus Type 2 diabetes mellitus Hypertensive disorder, hypertensive heart disease with concentric LVH based on echocardiogram and a preserved LV function Secondary pulmonary hypertension, estimated PASP of >60 Chronic edema of lower extremity, lasix 40 mg daily and he is improved and he has less swelling in the legs Poor overall functional performance based on the above-mentioned multiple comorbidities Plan: The patient was seen and evaluated Labs and medications reviewed Continue the current treatment plan Increase his activity as tolerated We will continue to follow I have personally seen and examined the patient, performed the documentation and the assessment and plan as written. Number of minutes spent on the visit: 10.
[2023-12-06 17:33] LABS: Glucose,Whole Blood 276 mg/dL (70-110)
[2023-12-06 21:05] LABS: Glucose,Whole Blood 202 mg/dL (70-110)
[2023-12-06] MEDS: methylPREDNISolone SOD SUCCI 40 MG/ML 1 ML VIAL IV SCH (21:30)
--- NOTE | 2023-12-07 05:10 | P.PN ---
Subjective Progress Note Date: 12/06/23 Patient is a 83-year-old male with a past medical history of COPD on home oxygen, hypertension, hyperlipidemia, diabetes type 2 [id number] obstructive sleep apnea and history of bladder cancer s/p surgery and prior history of smoking presents to ER with complaints of shortness of breath and c ough for the past 3 to 4 days. Patient does have cough with light yellow sputum production. Denies any fever or chills. No leg swelling. No calf tenderness. No nausea vomiting abdominal pain or diarrhea. EKG showed sinus rhythm with first-degree AV block Chest x-ray showed COPD and changes of chronic interstitial pulmonary fibrosis with bilateral lower lobe area of infiltrate. Correlate for pneumonia. Superimposed gestational pneumonitis are venous congestion in the differential diagnosis. Laboratory data showed WBC 18.1 hemoglobin 13.1 and platelets 226 INR 1.3 sodium 137 potassium 4.0 chloride 107 bicarb is 22 BUN 20 and creatinine 0.7 and blood sugar 146 lactic acid 1.5 total bili 1.6 alk phos 135 proBNP 520 Influenza AB RSV and COVID-19 PCR not detected. 12/04/2023 Patient is currently sitting in his chair. Awake alert and oriented. Requiring 4 L oxygen via nasal cannula. Repeat chest x-ray showed no significant interval change and patient continues to yell moderate cardiomegaly and pulmonary vascular congestion and interstitial edema and ill-defined hazy opacities in the mid and lower lung zones bilaterally. Patient is being continued on antibiotics ceftriaxone azithromycin. Also on IV steroids and bronchodilators. Patient is also on Lasix 40 g p.o. daily. Laboratory data showed WBC 16.8 hemoglobin 12.4 and platelets 217 sodium 140 potassium 4.5 chloride 107 bicarb is 19.6 BUN 23.6 and creatinine 0.18 blood sugar 189 pain with A1c 6.7. Albumin 3.6 alk phos 127. Pulmonary is on board. 12/05/2023 Patient is sitting in the chair. Awake alert and oriented. Breathing status is better compared to yesterday. No complaints of chest pain. No nausea or vomiting. Patient is maintained on IV steroids and also on IV Lasix 40 g daily and bronchodilators. Currently on 4 L via nasal cannula and saturating at 90%. Patient remains on antibiotics. No complaints of nausea or vomiting. Tolerating oral diet. Afebrile. Blood sugars fairly controlled. No new laboratory data today. 12/06/2023 Patient seen and evaluated sitting up in the chair with pulmonary following closely. Patient is maintained on DuoNeb treatments along with IV steroids and also receiving IV Lasix daily for lower extremity swelling. Swelling has improved and patient is voiding with no difficulties. Patient remains on 4 L via nasal cannula which he chronically wears outpatient. WBC is elevated, likely reactive as patient is maintained on large dose IV steroids. Encouraged increase activity as tolerated with frequent walking with rest. Psych recovery. Wean FiO2 to as tolerated. Will follow-up with repeat chest x-ray Current medications reviewed. Review of systems: Constitutional: No reports of fatigue, fever, or chills Cardiovascular: No reports of chest pain or palpitations Respiratory: reports of continued shortness of breath with exertion reports chronic cough GI: No reports of nausea, vomiting, or diarrhea : No reports of dysuria or retention Neurovascular: No reports of weakness or numbness All medications have been reviewed PHYSICAL EXAMINATION: Patient is sitting up in the chair, awake alert and oriented. Morbidly obese. Elderly appearing HEENT: Normocephalic. Neck is supple. Pupils reactive. Nostrils clear. Oral cavity is moist. Neck reveals no JVD, carotid bruits, or thyromegaly. CHEST EXAMINATION: Trachea is central. Symmetrical expansion. Bilateral diminished sounds and expiratory wheezing and minimal improved aeration CARDIAC: Normal S1, S2 with no gallops. Systolic murmur. ABDOMEN: Soft. Obese bowel sounds present. No organomegaly. No abdominal bruits. Extremities: reveal no edema. No clubbing or cyanosis Neurologically awake, alert, oriented x3 with well-coordinated movements. No gross focal deficits noted Skin: No rash or skin lesions. Psychiatric: Cooperative. Non-suicidal Musculoskeletal: No joint swelling or deformity. Normal range of motion. Assessment: Acute on chronic hypoxic respiratory failure currently requiring 6 L oxygen via nasal cannula on admission. Currently at 4 L via nasal cannula. Acute bilateral lower lobe pneumonia with sepsis, present on admission Acute exacerbation of COPD Obstructive sleep apnea on CPAP at home Secondary pulmonary hypertension History of bladder cancer status post transurethral resection of bladder tumor. Patient is on follow-up with urology as an outpatient. BPH Paroxysmal atrial fibrillation not on anticoagulation currently maintaining sinus rhythm Valvular heart disease with moderate to severe MR Hypertension Diabetes type 2 [id number], uncontrolled with hyperglycemia, likely steroid effect Morbid obesity BMI 47.9 DVT prophylaxis with Lovenox subcu GI prophylaxis Full code Plan: Patient will be continued on oxygen supplementation. Wean FiO2 as tolerated. Patient currently maintained on 4 L and reports was using upwards of 6 L in the outpatient setting Continue with IV antibiotics ceftriaxone, azithromycin completed. Procalcitonin level is 0.5. Urine Legionella antigen is negative. Patient will be continued on home medication including Lasix although transition to IV and insulin sliding scale and insulin regimen for better blood sugar control. Adjusting insulins accordingly to cover for elevated as patient is maintained on IV steroids Continue with GI, DVT prophylaxis. Encouraged increase activity as tolerated Will follow-up with repeat labs and chest x-ray in the a.m. Discuss further with pulmonary regarding discharge planning possibly in the next 24 to 48 hours The impression and plan of care has been dictated by Yolanda Salazar, Nurse Practitioner as directed. Dr. Antoni MD I have performed a history and examination and MDM of this patient, discussed the same with the dictator, and agree with the dictator's assessment and plan as written ,documented as a scribe. Based on total visit time, I have performed more than 50% of the visit. Objective - Vital Signs Vital signs: Vital Signs Temp 98.0 F 12/06/23 07:25 Pulse 84 12/06/23 08:32 Resp 19 12/06/23 07:25 BP 158/71 12/06/23 07:25 Pulse Ox 91 L 12/06/23 07:25 FiO2 Intake & Output 12/05/23 12/06/23 12/06/23 18:59 06:59 18:59 Output Total 1100 Balance -1100 Output: Urine 1100 Other: Voiding Method Toilet Toilet # Voids 1 3 - Labs CBC & Chem 7: 12/06/23 04:39 12/06/23 04:39 Labs: Abnormal Lab Results - Last 24 Hours (Table) 12/05/23 12/05/23 12/05/23 Range/Units 11:50 16:32 20:04 WBC (4.50-10.00) X 10*3/uL RBC (4.40-5.60) X 10*6/uL Immature Gran # (0.00-0.04) X 10*3/uL Neutrophils # (1.80-7.70) X 10*3/uL Basophils # (0.00-0.10) X 10*3/uL Carbon Dioxide (21.6-31.8) mmol/L Anion Gap (4.00-12.00) mmol/L BUN (9.0-27.0) mg/dL BUN/Creatinine Ratio (12.00-20.00) Ratio Glucose (70-110) mg/dL POC Glucose (mg/dL) 166 H 195 H 217 H (70-110) mg/dL 12/06/23 12/06/23 12/06/23 Range/Units 04:39 04:39 05:41 WBC 19.17 H (4.50-10.00) X 10*3/uL RBC 4.38 L (4.40-5.60) X 10*6/uL Immature Gran # 0.69 H (0.00-0.04) X 10*3/uL Neutrophils # 16.08 H (1.80-7.70) X 10*3/uL Basophils # 0.13 H (0.00-0.10) X 10*3/uL Carbon Dioxide 20.5 L (21.6-31.8) mmol/L Anion Gap 16.50 H (4.00-12.00) mmol/L BUN 33.8 H (9.0-27.0) mg/dL BUN/Creatinine Ratio 37.56 H (12.00-20.00) Ratio Glucose 214 H (70-110) mg/dL POC Glucose (mg/dL) 220 H (70-110) mg/dL Microbiology - Last 24 Hours (Table) 12/03/23 20:17 Gram Stain - Final Sputum Sputum Culture - Final 12/03/23 14:00 Blood Culture - Preliminary Blood 12/03/23 14:15 Blood Culture - Preliminary Blood
[2023-12-07 05:57] LABS: Glucose,Whole Blood 134 mg/dL (70-110)
--- NOTE | 2023-12-07 08:32 | XR ---
EXAMINATION TYPE: XR chest 1V portable DATE OF EXAM: 12/07/2023 COMPARISON: 12/04/2023 INDICATION: Short of breath COPD TECHNIQUE: Single frontal view of the chest is obtained. FINDINGS: The heart size is enlarged. The pulmonary vasculature is prominent. There is increased lung markings in the lower lung lucero and left mid lung. Correlate for pulmonary edema. Other etiologies including pneumonia and atelectasis could be considered. Follow-up is recomme nded IMPRESSION: 1. Findings suggestive for worsening congestive heart failure. Follow-up is recommended.
[2023-12-07 09:38] LABS: Basophils # (M) 0 X 10*3/uL (0.00-0.10); HCT 40.5 % (39.6-50.0); MCH 30.1 pg (27.0-32.0); MCHC 32.1 g/dL (32.0-37.0); MCV 93.8 FL (80.0-97.0); Mean Platelet Volume 10.1 FL (9.5-12.2); NRBC Per 100 WBC 0 X 10*3/uL (0.00-0.01); Neutrophils # (M) 15.73 X 10*3/uL (1.80-7.70); Neutrophils % (M) 79 %; Platelet Count 271 X 10*3/uL (140-440); RBC 4.32 X 10*6/uL (4.40-5.60); RDW 13.9 % (11.5-14.5); WBC 19.91 X 10*3/uL (4.50-10.00)
[2023-12-07 09:45] LABS: Lymphocytes # (M) 2.59 X 10*3/uL (0.90-5.00); Myelocytes % 2 % (0-0)
[2023-12-07 10:01] LABS: ALT 120 U/L (10-49); AST 52 U/L (14-35); Albumin 3.6 g/dL (3.8-4.9); Alkaline Phosphatase 111 U/L (41-126); BUN/Creat Ratio 34.89 Ratio (12.00-20.00); Blood Urea Nitrogen 31.4 mg/dL (9.0-27.0); Calcium 8.9 mg/dL (8.7-10.3); Carbon Dioxide 23.5 mmol/L (21.6-31.8); Chloride 104 mmol/L (96-109); Globulin 2.4 g/dL (1.6-3.3); Glucose 127 mg/dL (70-110); Potassium 4.4 mmol/L (3.5-5.5); Sodium 140 mmol/L (135-145); Total Bilirubin 0.4 mg/dL (0.3-1.2)
[2023-12-07 11:59] LABS: Glucose,Whole Blood 116 mg/dL (70-110)
--- NOTE | 2023-12-07 13:32 | P.PN ---
Subjective Progress Note Date: 12/07/23 This is an 83-year-old male patient with known history of COPD who came into the emergency department having difficulties in breathing and the patient became progressively more short of breath over the past few days. The patient has been maintained on a combination of Yupelri and budesonide/Perforomist nebulized treatments on outpatient basis the patient has been utilizing Ventolin rescue inhaler on a as needed basis. He has chronic exertional dyspnea. His baseline FEV1 is noted of 83% of predicted. The patient has been on oxygen 2 L/min nasal cannula. His previous CAT scan of the chest was done on 09/27/2023 showed a stable 4 mm left lower lobe pulmonary nodule which is being monitored and the patient has stable hilar mediastinal adenopathy which is also being monitored. The largest lymph node was in the subcarinal area measuring around 1.2 cm in size. He is also known to have chronic A-fib, diabetes mellitus type 2, hypertension and secondary pulm hypertension. He has also previous history of bladder cancer under the care of urology. Typically wears oxygen 2 L/min nasal cannula. He has obstructive sleep apnea compliant with CPAP therapy at a pressure of 13 cm of water. He has symptoms of BPH, and chronic lower extremity edema. In the emergency department, the patient was experiencing difficulties in breathing, cough and congestion and chest tightness and wheezing. The white cell count was at 18 with a hemoglobin of 13 and a platelet count of 226. INR was at 1.3 with a PT of 13.6 BUN of 20 with a creatinine of 0.7 and sodium levels 137, the viral screen was negative. LFTs were essentially within normal limits. His EKG showed normal sinus rhythm with a first-degree AV block. No acute ischemic changes. Chest x-ray that was done in the emergency department was reviewed and the patient was found to have cardiomegaly and increased interstitial markings bilaterally and an area of consolidation of the left lung base consistent with underlying pneumonia. Malignancy is felt to be less likely as the patient's CAT scan of the chest that was done on 09/27/2023 showed only a stable 4 mm nodule left lower lobe and diffuse emphysema. The patient accordingly was started on Rocephin and Zithromax. He is currently on IV Solu- Medrol. He is on DuoNeb nebulized treatments [id number]. He is currently on oxygen at 6 L nasal cannula. On today's evaluation of 12/04/2023, the patient is being seen for a follow-up. The patient is doing well. Less short of breath compared to yesterday. Currently he is on oxygen at 4 L of nasal cannula. Pulse ox is 90%. The repeat chest x-ray that was done today shows no significant interval change and the patient continues to have moderate cardiomegaly and pulm vessel congestion and interstitial edema and ill-defined hazy opacities in the mid and lower lung zones bilaterally. The patient remains on bronchodilators. The patient remains on steroids. The patient remains on Rocephin and Zithromax. The patient is als o on Lasix 40 mg p.o. on a daily basis. Blood work from today shows a white cell count of 16 hemoglobin 4.4 and a platelet count of 270. BUN is at 23 with a creatinine of 0.8 and sodium is at 140. Glucose of 213. LFTs are essentially within normal limits. The patient has a procalcitonin level of 0.5. 12/05/2023, the patient is being seen for a follow-up. Patient is improving. Less short of breath compared to yesterday. Remains on same antibiotic coverage. Sputum Gram stain and culture blood culture still pending. Meanwhile, the patient remains on a combination of Rocephin and Zithromax. The patient was also given Lasix 40 mg IV on a daily basis and the patient remains in negative fluid balance and is producing excellent urine output. He is currently on 4 L of O2 nasal cannula. His pulse ox in the order of 90 to 92%. No chest pain. No pleurisy. No hemoptysis. No other complaints otherwise for now. The patient is seen today December 06, 2023 in follow-up on the regular medical floor. He is currently sitting up in a chair. Awake and alert in no acute distress. Still with some cough and congestion. He is maintaining good O2 saturations in the 90s on 4 L/min per nasal cannula. He is continued on DuoNeb inhalations, Pulmicort and performist inhalations, Solu-Medrol. Antibiotics in the form of ceftriaxone. Lovenox for DVT prophylaxis he remains on IV diuretics. No accurate I & O. Blood and sputum cultures revealed no growth. White count 19.1. Hemoglobin 13.1. Platelets 306. Sodium 138. Potassium 4.1. Bicarb 21. BUN 34. Creatinine 0.9. Glucose 214. The patient is seen today December 07, 2023 in follow-up on the regular medical floor. He is up ambulating in his room. Awake and alert in no acute distress. Feeling better today compared to yesterday. Still with some dyspnea on exertion. Still requiring oxygen at 5 L/min per nasal cannula. He remains on bronchodilators and steroids. He remains on IV diuretics. Lovenox for DVT prophylaxis. Currently in a -600 mL balance. White count 19.9. Hemoglobin 13.0. Platelets 271. Sodium 140. Potassium 4.4. Bicarb 24. BUN 31. Creatinine 0.9. Glucose 127. AST 52. ALT 120. Blood and sputum cultures revealed no growth. Objective - Vital Signs Vital signs: Vital Signs Temp 98.1 F 12/07/23 08:02 Pulse 79 12/07/23 12:08 Resp 18 12/07/23 08:02 BP 163/67 12/07/23 08:02 Pulse Ox 90 L 12/07/23 08:42 FiO2 Intake & Output 12/06/23 12/07/23 12/07/23 18:59 06:59 18:59 Intake Total 400 Output Total 1000 Balance 400 -1000 Intake: Intake, IV Titration 50 Amount cefTRIAXone 2 gm In 50 Sodium Chloride 0.9% 50 ml @ 100 mls/hr IVPB Q24HR [facility] Rx#:[id number] Oral 350 Output: Urine 1000 Other: Voiding Method Toilet Toilet # Voids 3 2 3 # Bowel Movements 2 - Exam GENERAL EXAM: Alert, pleasant 83-year-old gentleman, on 5 L nasal cannula, comfortable in no apparent distress. HEAD: Normocephalic. EYES: Normal reaction of pupils, equal size. NOSE: Clear with pink turbinates. THROAT: No erythema or exudates. NECK: No masses, no JVD. CHEST: No chest wall deformity. LUNGS: Equal air entry with bilateral scattered rhonchi. CVS: S1 and S2 normal with no audible murmur, regular rhythm. ABDOMEN: No hepatosplenomegaly, normal bowel sounds, no guarding or rigidity. SPINE: No scoliosis or deformity SKIN: No rashes CENTRAL NERVOUS SYSTEM: No focal deficits, tone is normal in all 4 extremities. EXTREMITIES: There is 1-2+ peripheral edema. No clubbing, no cyanosis. P eripheral pulses are intact. - Labs CBC & Chem 7: 12/07/23 06:08 12/07/23 06:08 Labs: Abnormal Lab Results - Last 24 Hours (Table) 12/06/23 12/06/23 12/07/23 Range/Units 17:31 21:03 05:55 WBC (4.50-10.00) X 10*3/uL RBC (4.40-5.60) X 10*6/uL Neutrophils # (Manual) (1.80-7.70) X 10*3/uL Anion Gap (4.00-12.00) mmol/L BUN (9.0-27.0) mg/dL BUN/Creatinine Ratio (12.00-20.00) Ratio Glucose (70-110) mg/dL POC Glucose (mg/dL) 276 H 202 H 134 H (70-110) mg/dL AST (14-35) U/L ALT (10-49) U/L Total Protein (6.2-8.2) g/dL Albumin (3.8-4.9) g/dL Albumin/Globulin Ratio (1.60-3.17) Ratio 12/07/23 12/07/23 12/07/23 Range/Units 06:08 06:08 11:58 WBC 19.91 H (4.50-10.00) X 10*3/uL RBC 4.32 L (4.40-5.60) X 10*6/uL Neutrophils # (Manual) 15.73 H (1.80-7.70) X 10*3/uL Anion Gap 12.50 H (4.00-12.00) mmol/L BUN 31.4 H (9.0-27.0) mg/dL BUN/Creatinine Ratio 34.89 H (12.00-20.00) Ratio Glucose 127 H (70-110) mg/dL POC Glucose (mg/dL) 116 H (70-110) mg/dL AST 52 H (14-35) U/L ALT 120 H (10-49) U/L Total Protein 6.0 L (6.2-8.2) g/dL Albumin 3.6 L (3.8-4.9) g/dL Albumin/Globulin Ratio 1.50 L (1.60-3.17) Ratio Microbiology - Last 24 Hours (Table) 12/03/23 14:00 Blood Culture - Preliminary Blood 12/03/23 14:15 Blood Culture - Preliminary Blood 12/03/23 20:17 Gram Stain - Final Sputum Sputum Culture - Final Assessment and Plan Assessment: Acute on chronic hypoxic respiratory failure secondary to pneumonia the patient is currently on 5 L of O2 nasal cannula, oxygenation is stable Acute left lower lobe pneumonia with obvious area of consolidation of the left lung base, chest x-ray findings from today are essentially unchanged. The patient remains on Rocephin and completed Zithromax. Cultures revealed no growth. Procalcitonin level is at 0.5. Acute exacerbation of chronic COPD secondary to above. FEV1 of 83% Chronic exertional dyspnea with hypoxemia secondary to a component of COPD and addition to obesity and deconditioning. He may have an underlying restrictive physiology related to his body habitus. Spirometry shows an FEV1 of 83% of predicted . He has a rolling walker. Obstructive sleep apnea syndrome, he is currently on a CPAP pressure of 13 cm of water with C-Flex of 3 Malignant tumor of urinary bladder, transurethral resection of bladder tumor and the patient will have a follow-up evaluation sometime next year with urology. Under the care of Dr Zamora. A follow-up urine cytology came back negative for malignancy. A follow-up CT urography came back negative for malignancy. There was a incidental 7 mm nodule in the right lower lobe. the patient has been told that he has been disease-free by his urologist based on a recent scope that he underwent. Bladder cancer Solitary nodule of lung, incidental 7 mm posterior left basilar pulmonary nodule, not seen previously on previous images. There was also prominent dependent atelectasis without any pleural effusions. A CAT scan of the chest was recommended to reassess and also survey the remainder of the lungs. CT of the chest on 09/27/23 and the nodule is 4 mm and stable and the subcarinal LN is also stable Obesity Mitral valve regurgitation-mitral valve has shown moderate degree of regurgitation based on an echocardiogram that was done in October 2015. He has a moderate /severe MR and the finding according to cardiology has been stable Benign prostatic hyperplasia Paroxysmal atrial fibrillation, current rhythm is sinus Type 2 diabetes mellitus Hypertensive disorder, hypertensive heart disease with concentric LVH based on echocardiogram and a preserved LV function Secondary pulmonary hypertension, estimated PASP of >60 Chronic edema of lower extremity, lasix 40 mg daily and he is improved and he has less swelling in the legs Poor overall functional performance based on the above-mentioned multiple comorbidities Plan: The patient was seen and evaluated Chest x-ray, labs and medications reviewed Obtain an echocardiogram Continue diuretics Continue antibiotics Continue bronchodilators and steroids Titrate down the FiO2 as tolerated We will continue to follow I have personally seen and examined the patient, performed the documentation and the assessment and plan as written. Number of minutes spent on the visit: 10.
[2023-12-07 16:55] LABS: Glucose,Whole Blood 205 mg/dL (70-110)
[2023-12-07 20:33] LABS: Glucose,Whole Blood 167 mg/dL (70-110)
--- NOTE | 2023-12-08 00:40 | P.PN ---
Subjective Progress Note Date: 12/07/23 Patient is a 83-year-old male with a past medical history of COPD on home oxygen, hypertension, hyperlipidemia, diabetes type 2 [id number] obstructive sleep apnea and history of bladder cancer s/p surgery and prior history of smoking presents to ER with complaints of shortness of breath and c ough for the past 3 to 4 days. Patient does have cough with light yellow sputum production. Denies any fever or chills. No leg swelling. No calf tenderness. No nausea vomiting abdominal pain or diarrhea. EKG showed sinus rhythm with first-degree AV block Chest x-ray showed COPD and changes of chronic interstitial pulmonary fibrosis with bilateral lower lobe area of infiltrate. Correlate for pneumonia. Superimposed gestational pneumonitis are venous congestion in the differential diagnosis. Laboratory data showed WBC 18.1 hemoglobin 13.1 and platelets 226 INR 1.3 sodium 137 potassium 4.0 chloride 107 bicarb is 22 BUN 20 and creatinine 0.7 and blood sugar 146 lactic acid 1.5 total bili 1.6 alk phos 135 proBNP 520 Influenza AB RSV and COVID-19 PCR not detected. 12/04/2023 Patient is currently sitting in his chair. Awake alert and oriented. Requiring 4 L oxygen via nasal cannula. Repeat chest x-ray showed no significant interval change and patient continues to yell moderate cardiomegaly and pulmonary vascular congestion and interstitial edema and ill-defined hazy opacities in the mid and lower lung zones bilaterally. Patient is being continued on antibiotics ceftriaxone azithromycin. Also on IV steroids and bronchodilators. Patient is also on Lasix 40 g p.o. daily. Laboratory data showed WBC 16.8 hemoglobin 12.4 and platelets 217 sodium 140 potassium 4.5 chloride 107 bicarb is 19.6 BUN 23.6 and creatinine 0.18 blood sugar 189 pain with A1c 6.7. Albumin 3.6 alk phos 127. Pulmonary is on board. 12/05/2023 Patient is sitting in the chair. Awake alert and oriented. Breathing status is better compared to yesterday. No complaints of chest pain. No nausea or vomiting. Patient is maintained on IV steroids and also on IV Lasix 40 g daily and bronchodilators. Currently on 4 L via nasal cannula and saturating at 90%. Patient remains on antibiotics. No complaints of nausea or vomiting. Tolerating oral diet. Afebrile. Blood sugars fairly controlled. No new laboratory data today. 12/06/2023 Patient seen and evaluated sitting up in the chair with pulmonary following closely. Patient is maintained on DuoNeb treatments along with IV steroids and also receiving IV Lasix daily for lower extremity swelling. Swelling has improved and patient is voiding with no difficulties. Patient remains on 4 L via nasal cannula which he chronically wears outpatient. WBC is elevated, likely reactive as patient is maintained on large dose IV steroids. Encouraged increase activity as tolerated with frequent walking with rest. Psych recovery. Wean FiO2 to as tolerated. Will follow-up with repeat chest x-ray 12/07/2023 Patient is seen in follow-up today currently sitting up in the chair with pulmonary following. Patient continues to report significant shortness of breath especially with minimal exertion. Patient is maintained on 5 L via nasal cannula and saturations. Patient is maintained on [id number] DuoNebs along with antibiotics and IV steroids. Follow-up chest x-ray shows worsening pulmonary vascular congestion and was maintained on IV Lasix daily, will transition to twice daily and follow-up with repeat labs and continuing to work with weaning FiO2 as tolerated. Patient denies any history of congestive heart failure and continues with lower extremity swelling although minimally improved, will obtain a BNP as well as 2D echo. Current medications reviewed. Review of systems: Constitutional: No reports of fatigue, fever, or chills Cardiovascular: No reports of chest pain or palpitations Respiratory: reports of continued shortness of breath with exertion reports chronic cough GI: No reports of nausea, vomiting, or diarrhea : No reports of dysuria or retention Neurovascular: No reports of weakness or numbness All medications have been reviewed PHYSICAL EXAMINATION: Patient is sitting up in the chair, awake alert and oriented. Morbidly obese. Elderly appearing HEENT: Normocephalic. Neck is supple. Pupils reactive. Nostrils clear. Oral cavity is moist. Neck reveals no JVD, carotid bruits, or thyromegaly. CHEST EXAMINATION: Trachea is central. Symmetrical expansion. Bilateral diminished sounds and expiratory wheezing and minimal improved aeration CARDIAC: Normal S1, S2 with no gallops. Systolic murmur. ABDOMEN: Soft. Obese bowel sounds present. No organomegaly. No abdominal bruits. Extremities: reveal no edema. No clubbing or cyanosis Neurologically awake, alert, oriented x3 with well-coordinated movements. No gross focal deficits noted Skin: No rash or skin lesions. Psychiatric: Cooperative. Non-suicidal Musculoskeletal: No joint swelling or deformity. Normal range of motion. Assessment: Acute on chronic hypoxic respiratory failure currently requiring 6 L oxygen via nasal cannula on admission. Currently at 5 L via nasal cannula. Acute bilateral lower lobe pneumonia with sepsis, present on admission Acute exacerbation of COPD Obstructive sleep apnea on CPAP at home Secondary pulmonary hypertension History of bladder cancer status post transurethral resection of bladder tumor. Patient is on follow-up with urology as an outpatient. BPH Paroxysmal atrial fibrillation not on anticoagulation currently maintaining sinus rhythm Valvular heart disease with moderate to severe MR Hypertension Diabetes type 2 [id number], uncontrolled with hyperglycemia, likely steroid effect Morbid obesity BMI 47.9 DVT prophylaxis with Lovenox subcu GI prophylaxis Full code Plan: Patient will be continued on oxygen supplementation. Wean FiO2 as tolerated. Patient currently maintained on 5 L and reports was using upwards of 6 L in the outpatient setting Continue with IV antibiotics ceftriaxone, azithromycin completed. Procalcitonin level is 0.5. Urine Legionella antigen is negative. Patient will be continued on home medication including Lasix although transition to IV and will increase to twice daily Continue insulin sliding scale and insulin regimen for better blood sugar co ntrol. Adjusting insulins accordingly to cover for elevated as patient is maintained on IV steroids Continue with GI, DVT prophylaxis. Chest x-ray today showed worsening pulmonary congestion, will increase Lasix to twice daily and will obtain a 2D echo as well as BNP Encouraged increase activity as tolerated Will follow-up with repeat labs Overall prognosis is guarded at this time. The impression and plan of care has been dictated by Yolanda Salazar, Nurse Practitioner as directed. Dr. Antoni MD I have performed a history and examination and MDM of this patient, discussed t he same with the dictator, and agree with the dictator's assessment and plan as written ,documented as a scribe. Based on total visit time, I have performed more than 50% of the visit. Objective - Vital Signs Vital signs: Vital Signs Temp 97.9 F 12/07/23 01:44 Pulse 68 12/07/23 09:01 Resp 17 12/07/23 01:44 BP 131/60 12/07/23 01:44 Pulse Ox 90 L 12/07/23 08:42 FiO2 Intake & Output 12/06/23 12/07/23 12/07/23 18:59 06:59 18:59 Intake Total 400 Output Total 1000 Balance 400 -1000 Intake: Intake, IV Titration 50 Amount cefTRIAXone 2 gm In 50 Sodium Chloride 0.9% 50 ml @ 100 mls/hr IVPB Q24HR [facility] Rx#:[id number] Oral 350 Output: Urine 1000 Other: Voiding Method Toilet Toilet # Voids 3 2 - Labs CBC & Chem 7: 12/07/23 06:08 12/07/23 06:08 Labs: Abnormal Lab Results - Last 24 Hours (Table) 12/06/23 12/06/23 12/06/23 Range/Units 12:02 17:31 21:03 WBC (4.50-10.00) X 10*3/uL RBC (4.40-5.60) X 10*6/uL Neutrophils # (Manual) (1.80-7.70) X 10*3/uL POC Glucose (mg/dL) 192 H 276 H 202 H (70-110) mg/dL 12/07/23 12/07/23 Range/Units 05:55 06:08 WBC 19.91 H (4.50-10.00) X 10*3/uL RBC 4.32 L (4.40-5.60) X 10*6/uL Neutrophils # (Manual) 15.73 H (1.80-7.70) X 10*3/uL POC Glucose (mg/dL) 134 H (70-110) mg/dL Microbiology - Last 24 Hours (Table) 12/03/23 14:00 Blood Culture - Preliminary Blood 12/03/23 14:15 Blood Culture - Preliminary Blood 12/03/23 20:17 Gram Stain - Final Sputum Sputum Culture - Final
[2023-12-08] MEDS: FUROSEMIDE 10 MG/ML 4 ML VIAL IV SCH ×2 (05:58→17:49)
[2023-12-08 06:00] LABS: Glucose,Whole Blood 121 mg/dL (70-110)
[2023-12-08 07:13] VITALS: RESP 18
[2023-12-08 09:11] LABS: African American GFR (CKD) >90 (>60 ml/min/1.73 sqM); Anion Gap 10 mmol/L; Blood Urea Nitrogen 37 mg/dL (9-20); Calcium 8.9 mg/dL (8.4-10.2); Carbon Dioxide 25 mmol/L (22-30); Chloride 101 mmol/L (98-107); Glucose 194 mg/dL (74-99); Non-African American GFR(CKD) 82 (>60 ml/min/1.73 sqM); Potassium 4.1 mmol/L (3.5-5.1); Sodium 136 mmol/L (137-145)
[2023-12-08 09:21] LABS: Basophils # (A) 0.2 k/uL (0-0.2); Basophils % (A) 1 %; Eosinophils % (A) 0 %; HCT 42.7 % (39.0-53.0); HGB 14.1 gm/dL (13.0-17.5); Lymphocytes # (A) 1.6 k/uL (1.0-4.8); Lymphocytes % (A) 7 %; MCH 31.7 pg (25.0-35.0); MCV 96.1 fL (80.0-100.0); Mean Platelet Volume 8.2; Monocytes % (A) 4 %; Neutrophils # (A) 18.3 k/uL (1.3-7.7); Neutrophils % (A) 86 %; Platelet Count 299 k/uL (150-450); RBC 4.45 m/uL (4.30-5.90); WBC 21.4 k/uL (3.8-10.6)
[2023-12-08 11:27] LABS: Glucose,Whole Blood 234 mg/dL (70-110)
--- NOTE | 2023-12-08 11:48 | P.PN ---
Subjective Progress Note Date: 12/08/23 This is an 83-year-old male patient with known history of COPD who came into the emergency department having difficulties in breathing and the patient became progressively more short of breath over the past few days. The patient has been maintained on a combination of Yupelri and budesonide/Perforomist nebulized treatments on outpatient basis the patient has been utilizing Ventolin rescue inhaler on a as needed basis. He has chronic exertional dyspnea. His baseline FEV1 is noted of 83% of predicted. The patient has been on oxygen 2 L/min nasal cannula. His previous CAT scan of the chest was done on 09/27/2023 showed a stable 4 mm left lower lobe pulmonary nodule which is being monitored and the patient has stable hilar mediastinal adenopathy which is also being monitored. The largest lymph node was in the subcarinal area measuring around 1.2 cm in size. He is also known to have chronic A-fib, diabetes mellitus type 2, hypertension and secondary pulm hypertension. He has also previous history of bladder cancer under the care of urology. Typically wears oxygen 2 L/min nasal cannula. He has obstructive sleep apnea compliant with CPAP therapy at a pressure of 13 cm of water. He has symptoms of BPH, and chronic lower extremity edema. In the emergency department, the patient was experiencing difficulties in breathing, cough and congestion and chest tightness and wheezing. The white cell count was at 18 with a hemoglobin of 13 and a platelet count of 226. INR was at 1.3 with a PT of 13.6 BUN of 20 with a creatinine of 0.7 and sodium levels 137, the viral screen was negative. LFTs were essentially within normal limits. His EKG showed normal sinus rhythm with a first-degree AV block. No acute ischemic changes. Chest x-ray that was done in the emergency department was reviewed and the patient was found to have cardiomegaly and increased interstitial markings bilaterally and an area of consolidation of the left lung base consistent with underlying pneumonia. Malignancy is felt to be less likely as the patient's CAT scan of the chest that was done on 09/27/2023 showed only a stable 4 mm nodule left lower lobe and diffuse emphysema. The patient accordingly was started on Rocephin and Zithromax. He is currently on IV Solu- Medrol. He is on DuoNeb nebulized treatments [id number]. He is currently on oxygen at 6 L nasal cannula. On today's evaluation of 12/04/2023, the patient is being seen for a follow-up. The patient is doing well. Less short of breath compared to yesterday. Currently he is on oxygen at 4 L of nasal cannula. Pulse ox is 90%. The repeat chest x-ray that was done today shows no significant interval change and the patient continues to have moderate cardiomegaly and pulm vessel congestion and interstitial edema and ill-defined hazy opacities in the mid and lower lung zones bilaterally. The patient remains on bronchodilators. The patient remains on steroids. The patient remains on Rocephin and Zithromax. The patient is als o on Lasix 40 mg p.o. on a daily basis. Blood work from today shows a white cell count of 16 hemoglobin 4.4 and a platelet count of 270. BUN is at 23 with a creatinine of 0.8 and sodium is at 140. Glucose of 213. LFTs are essentially within normal limits. The patient has a procalcitonin level of 0.5. 12/05/2023, the patient is being seen for a follow-up. Patient is improving. Less short of breath compared to yesterday. Remains on same antibiotic coverage. Sputum Gram stain and culture blood culture still pending. Meanwhile, the patient remains on a combination of Rocephin and Zithromax. The patient was also given Lasix 40 mg IV on a daily basis and the patient remains in negative fluid balance and is producing excellent urine output. He is currently on 4 L of O2 nasal cannula. His pulse ox in the order of 90 to 92%. No chest pain. No pleurisy. No hemoptysis. No other complaints otherwise for now. The patient is seen today December 06, 2023 in follow-up on the regular medical floor. He is currently sitting up in a chair. Awake and alert in no acute distress. Still with some cough and congestion. He is maintaining good O2 saturations in the 90s on 4 L/min per nasal cannula. He is continued on DuoNeb inhalations, Pulmicort and performist inhalations, Solu-Medrol. Antibiotics in the form of ceftriaxone. Lovenox for DVT prophylaxis he remains on IV diuretics. No accurate I & O. Blood and sputum cultures revealed no growth. White count 19.1. Hemoglobin 13.1. Platelets 306. Sodium 138. Potassium 4.1. Bicarb 21. BUN 34. Creatinine 0.9. Glucose 214. The patient is seen today December 07, 2023 in follow-up on the regular medical floor. He is up ambulating in his room. Awake and alert in no acute distress. Feeling better today compared to yesterday. Still with some dyspnea on exertion. Still requiring oxygen at 5 L/min per nasal cannula. He remains on bronchodilators and steroids. He remains on IV diuretics. Lovenox for DVT prophylaxis. Currently in a -600 mL balance. White count 19.9. Hemoglobin 13.0. Platelets 271. Sodium 140. Potassium 4.4. Bicarb 24. BUN 31. Creatinine 0.9. Glucose 127. AST 52. ALT 120. Blood and sputum cultures revealed no growth. The patient is seen today December 08, 2023 in follow-up on the regular medical floor. He is currently seen in about a chair at the bedside. Awake and alert in no acute distress. Denies any worsening shortness of breath, cough or congestion. He is maintaining O2 saturation in the 90s on 5 L/min per nasal cannula. He remains on IV diuretics, no accurate intake and output recorded. He is continued on DuoNeb ventilations, Pulmicort and performing scintillations, Solu-Medrol. Lovenox for DVT prophylaxis. Sputum culture revealed no growth. Blood cultures revealed no growth. White count 21.4. Hemoglobin 14.1. Platelets 299. Sodium 136. Potassium 4.1. Bicarb 25. BUN 37. Creatinine 0.85. Glucose 194. Objective - Vital Signs Vital signs: Vital Signs Temp 97.1 F L 12/08/23 07:13 Pulse 70 12/08/23 08:43 Resp 18 12/08/23 07:35 BP 169/76 12/08/23 07:13 Pulse Ox 91 L 12/08/23 07:13 FiO2 Intake & Output 12/07/23 12/08/23 12/08/23 18:59 06:59 18:59 Intake Total 480 Balance 480 Intake: Oral 480 Other: Voiding Method Toilet Toilet Toilet # Voids 5 3 # Bowel Movements 2 - Exam GENERAL EXAM: Alert, pleasant 83-year-old gentleman, sitting up in a chair, on 5 L nasal cannula, in no apparent distress. HEAD: Normocephalic. EYES: Normal reaction of pupils, equal size. NOSE: Clear with pink turbinates. THROAT: No erythema or exudates. NECK: No masses, no JVD. CHEST: No chest wall deformity. LUNGS: Equal air entry with bilateral scattered rhonchi. CVS: S1 and S2 normal with no audible murmur, regular rhythm. ABDOMEN: No hepatosplenomegaly, normal bowel sounds, no guarding or rigidity. SPINE: No scoliosis or deformity SKIN: No rashes CENTRAL NERVOUS SYSTEM: No focal deficits, tone is normal in all 4 extremities. EXTREMITIES: There is 1-2+ peripheral edema. No clubbing, no cyanosis. Peripheral pulses are intact. - Labs CBC & Chem 7: 12/08/23 08:22 12/08/23 08:22 Labs: Abnormal Lab Results - Last 24 Hours (Table) 12/07/23 12/07/23 12/07/23 Range/Units 06:08 11:58 16:53 WBC (3.8-10.6) k/uL Neutrophils # (1.3-7.7) k/uL Sodium (137-145) mmol/L BUN (9-20) mg/dL Glucose (74-99) mg/dL POC Glucose (mg/dL) 116 H 205 H (70-110) mg/dL NT-Pro-B Natriuret Pep 601 H (0-450) pg/mL 12/07/23 12/08/23 12/08/23 Range/Units 20:19 05:48 08:22 WBC 21.4 H (3.8-10.6) k/uL Neutrophils # 18.3 H (1.3-7.7) k/uL Sodium (137-145) mmol/L BUN (9-20) mg/dL Glucose (74-99) mg/dL POC Glucose (mg/dL) 167 H 121 H (70-110) mg/dL NT-Pro-B Natriuret Pep (0-450) pg/mL 12/08/23 12/08/23 Range/Units 08:22 11:25 WBC (3.8-10.6) k/uL Neutrophils # (1.3-7.7) k/uL Sodium 136 L (137-145) mmol/L BUN 37 H (9-20) mg/dL Glucose 194 H (74-99) mg/dL POC Glucose (mg/dL) 234 H (70-110) mg/dL NT-Pro-B Natriuret Pep (0-450) pg/mL Assessment and Plan Assessment: Acute on chronic hypoxic respiratory failure secondary to pneumonia, currently on 5 L of O2 nasal cannula Acute left lower lobe pneumonia with obvious area of consolidation of the left lung base. The patient remains on Rocephin and completed Zithromax. Cultures revealed no growth. Procalcitonin level is at 0.5 Acute exacerbation of chronic COPD secondary to above. FEV1 of 83% Chronic exertional dyspnea with hypoxemia secondary to a component of COPD and a ddition to obesity and deconditioning. He may have an underlying restrictive physiology related to his body habitus. Spirometry shows an FEV1 of 83% of predicted . He has a rolling walker. Obstructive sleep apnea syndrome, on home CPAP pressure of 13 cm of water with C-Flex of 3 Malignant tumor of urinary bladder, transurethral resection of bladder tumor and the patient will have a follow-up evaluation sometime next year with urology. Under the care of Dr Zamora. A follow-up urine cytology came back negative for malignancy. A follow-up CT urography came back negative for malignancy. There was a incidental 7 mm nodule in the right lower lobe. the patient has been told that he has been disease-free by his urologist based on a recent scope that he underwent. Bladder cancer Solitary nodule of lung, incidental 7 mm posterior left basilar pulmonary nodule, not seen previously on previous images. There was also prominent dependent atelectasis without any pleural effusions. A CAT scan of the chest was recommended to reassess and also survey the remainder of the lungs. CT of the chest on 09/27/23 and the nodule is 4 mm and stable and the subcarinal LN is also stable Obesity, BMI 47.9 kg/m Mitral valve regurgitation-mitral valve has shown moderate degree of regurgitation based on an echocardiogram that was done in October 2015. He has a moderate /severe MR and the finding according to cardiology has been stable Benign prostatic hyperplasia Paroxysmal atrial fibrillation, current rhythm is sinus Type 2 diabetes mellitus Hypertensive disorder, hypertensive heart disease with concentric LVH based on echocardiogram and a preserved LV function Secondary pulmonary hypertension, estimated PASP of >60 Chronic edema of lower extremity Poor overall functional performance based on the above-mentioned multiple comorbidities Plan: The patient was seen and evaluated Labs and medications reviewed Echocardiogram pending Continue the current treatment plan Titrate down the FiO2 as tolerated Follow-up chest x-ray in a.m. I have personally seen and examined the patient, performed the documentation and the assessment and plan as written. Number of minutes spent on the visit: 10.
--- NOTE | 2023-12-08 12:47 | CA ---
Transthoracic Echo Report Name: Zhao Allen Age: 83 Gender: M : 1940 Exam Date: 12/08/2023 09:23 Exam Location: [facility] Ht (in): 66 Wt (lb): 297 Ordering Physician: Yolanda Salazar Attending/Referring Phys: Poker In Luna Theodore RDCS Procedure CPT: Indications: shortness of breath, low extr edema Cardiac Hx: Technical Quality: Technically difficult study Contrast 1: Definity Total Dose (mL): 2 Contrast 2: Total Dose (mL): MEASUREMENTS (Male / Female) Normal Values 2D ECHO LV Diastolic Diameter PLAX 5.5 cm 4.2 - 5.9 / 3.9 - 5.3 cm LV Systolic Diameter PLAX 3.1 cm IVS Diastolic Thickness 1.3 cm 0.6 - 1.0 / 0.6 - 0.9 cm LVPW Diastolic Thickness 1.3 cm 0.6 - 1.0 / 0.6 - 0.9 cm LV Relative Wall Thickness 0.5 LA Volume 71.6 cm??? 18 - 58 / 22 - 52 cm??? LA Volume Index 27.7 cm???/m??? 16 - 28 cm???/m??? M-MODE Aortic Root Diameter MM 3.3 cm LA Systolic Diameter MM 4.3 cm LA Ao Ratio MM 1.3 AV Cusp Separation MM 2.2 cm DOPPLER AV Peak Velocity 213.3 cm/s AV Peak Gradient 18.2 mmHg AV Mean Velocity 123.8 cm/s AV Mean Gradient 7.3 mmHg AV Velocity Time Integral 38.6 cm LVOT Peak Velocity 108.9 cm/s LVOT Peak Gradient 4.7 mmHg LVOT Velocity Time Integral 20.4 cm MV Area PHT 3.5 cm??? Mitral E Point Velocity 113.6 cm/s Mitral A Point Velocity 91.7 cm/s Mitral E to A Ratio 1.2 MV Deceleration Time 216.9 ms MV E' Velocity 5.3 cm/s Mitral E to MV E' Ratio 21.3 TR Peak Velocity 207.3 cm/s TR Peak Gradient 17.2 mmHg FINDINGS Left Ventricle Mildly increased left ventricular wall thickness. Left ventricular cavity size normal. Normal left ventricular systolic function with no obvious regional wall motion abnormalities. Left ventricular ejection fraction is estimated at 55-60 %. Grade 1 diastolic dysfunction. Right Ventricle Right ventricular dilatation. Right ventricular systolic pressure within normal limits. Right Atrium Right atrium not well visualized. Left Atrium Moderately increased left atrial volume. Mildly increased left atrial area. Mitral Valve Structurally normal mitral valve. Mitral valve thickened. Mild mitral annular calcification. Moderate mitral regurgitation. Aortic Valve Trileaflet aortic valve. No aortic valve stenosis or regurgitation. Tricuspid Valve Structurally normal tricuspid valve. Mild tricuspid regurgitation. Pulmonic Valve Structurally normal pulmonic valve. Trace pulmonic regurgitation. Pericardium No pericardial effusion. Prominent epicardial fat. Aorta Normal size aortic root and proximal ascending aorta. CONCLUSIONS Technically difficult study for interpretation Normal LV systolic function Poorly visualized intracardiac valves Mildly dilated RV Previewed by: Dr. Abdirashid Castillo MD (Electronically Signed) Final Date: 08 December 2023 12:46
--- NOTE | 2023-12-08 15:19 | P.PN ---
Subjective Progress Note Date: 12/08/23 Patient is a 83-year-old male with a past medical history of COPD on home oxygen, hypertension, hyperlipidemia, diabetes type 2 [id number] obstructive sleep apnea and history of bladder cancer s/p surgery and prior history of smoking presents to ER with complaints of shortness of breath and c ough for the past 3 to 4 days. Patient does have cough with light yellow sputum production. Denies any fever or chills. No leg swelling. No calf tenderness. No nausea vomiting abdominal pain or diarrhea. EKG showed sinus rhythm with first-degree AV block Chest x-ray showed COPD and changes of chronic interstitial pulmonary fibrosis with bilateral lower lobe area of infiltrate. Correlate for pneumonia. Superimposed gestational pneumonitis are venous congestion in the differential diagnosis. Laboratory data showed WBC 18.1 hemoglobin 13.1 and platelets 226 INR 1.3 sodium 137 potassium 4.0 chloride 107 bicarb is 22 BUN 20 and creatinine 0.7 and blood sugar 146 lactic acid 1.5 total bili 1.6 alk phos 135 proBNP 520 Influenza AB RSV and COVID-19 PCR not detected. 12/04/2023 Patient is currently sitting in his chair. Awake alert and oriented. Requiring 4 L oxygen via nasal cannula. Repeat chest x-ray showed no significant interval change and patient continues to yell moderate cardiomegaly and pulmonary vascular congestion and interstitial edema and ill-defined hazy opacities in the mid and lower lung zones bilaterally. Patient is being continued on antibiotics ceftriaxone azithromycin. Also on IV steroids and bronchodilators. Patient is also on Lasix 40 g p.o. daily. Laboratory data showed WBC 16.8 hemoglobin 12.4 and platelets 217 sodium 140 potassium 4.5 chloride 107 bicarb is 19.6 BUN 23.6 and creatinine 0.18 blood sugar 189 pain with A1c 6.7. Albumin 3.6 alk phos 127. Pulmonary is on board. 12/05/2023 Patient is sitting in the chair. Awake alert and oriented. Breathing status is better compared to yesterday. No complaints of chest pain. No nausea or vomiting. Patient is maintained on IV steroids and also on IV Lasix 40 g daily and bronchodilators. Currently on 4 L via nasal cannula and saturating at 90%. Patient remains on antibiotics. No complaints of nausea or vomiting. Tolerating oral diet. Afebrile. Blood sugars fairly controlled. No new laboratory data today. 12/06/2023 Patient seen and evaluated sitting up in the chair with pulmonary following closely. Patient is maintained on DuoNeb treatments along with IV steroids and also receiving IV Lasix daily for lower extremity swelling. Swelling has improved and patient is voiding with no difficulties. Patient remains on 4 L via nasal cannula which he chronically wears outpatient. WBC is elevated, likely reactive as patient is maintained on large dose IV steroids. Encouraged increase activity as tolerated with frequent walking with rest. Psych recovery. Wean FiO2 to as tolerated. Will follow-up with repeat chest x-ray 12/07/2023 Patient is seen in follow-up today currently sitting up in the chair with pulmonary following. Patient continues to report significant shortness of breath especially with minimal exertion. Patient is maintained on 5 L via nasal cannula and saturations. Patient is maintained on [id number] DuoNebs along with antibiotics and IV steroids. Follow-up chest x-ray shows worsening pulmonary vascular congestion and was maintained on IV Lasix daily, will transition to twice daily and follow-up with repeat labs and continuing to work with weaning FiO2 as tolerated. Patient denies any history of congestive heart failure and continues with lower extremity swelling although minimally improved, will obtain a BNP as well as 2D echo. 12/08/2023 Patient is seen in follow-up today continues to be followed with pulmonary following recommending follow-up chest x-ray tomorrow. Patient is currently maintained on 5 L via nasal cannula and chronically wears this outpatient. Patient is continued on IV Lasix as well as IV steroids and [id number] DuoNeb treatments. Patient did have a 2D echo performed showing an EF of 55-60 with grade 1 diastolic dysfunction. BNP was minimally elevated. Patient continues with some mild lower extremity swelling and shortness of breath and recommend to continue with IV Lasix twice daily. Will follow-up on repeat labs and continue to monitor kidney functions closely. Current medications reviewed. Review of systems: Constitutional: No reports of fatigue, fever, or chills Cardiovascular: No reports of chest pain or palpitations Respiratory: reports of continued shortness of breath with exertion reports chronic cough GI: No reports of nausea, vomiting, or diarrhea : No reports of dysuria or retention Neurovascular: reports of weakness or numbness All medications have been reviewed PHYSICAL EXAMINATION: Patient is sitting up in the chair, awake alert and oriented. Morbidly obese. Elderly appearing HEENT: Normocephalic. Neck is supple. Pupils reactive. Nostrils clear. Oral cavity is moist. Neck reveals no JVD, carotid bruits, or thyromegaly. CHEST EXAMINATION: Trachea is central. Symmetrical expansion. Bilateral diminished sounds and expiratory wheezing and improved aeration CARDIAC: Normal S1, S2 with no gallops. Systolic murmur. ABDOMEN: Soft. Obese bowel sounds present. No organomegaly. No abdominal bruits. Extremities: reveal no edema. No clubbing or cyanosis Neurologically awake, alert, oriented x3 with well-coordinated movements. No gross focal deficits noted Skin: No rash or skin lesions. Psychiatric: Cooperative. Non-suicidal Musculoskeletal: No joint swelling or deformity. Normal range of motion. Assessment: Acute on chronic hypoxic respiratory failure currently requiring 6 L oxygen via nasal cannula on admission. Currently at 5 L via nasal cannula. Acute bilateral lower lobe pneumonia with sepsis, present on admission Acute exacerbation of COPD Obstructive sleep apnea on CPAP at home Congestive heart failure, acute exacerbation, grade 1 diastolic dysfunction with preserved EF, EF is 55 to 60% Secondary pulmonary hypertension History of bladder cancer status post transurethral resection of bladder tumor. Patient is on follow-up with urology as an outpatient. BPH Paroxysmal atrial fibrillation not on anticoagulation currently maintaining sinus rhythm Valvular heart disease with moderate to severe MR Hypertension Diabetes type 2 [id number], uncontrolled with hyperglycemia, likely steroid effect Morbid obesity BMI 47.9 DVT prophylaxis with Lovenox subcu GI prophylaxis Full code Plan: Patient will be continued on oxygen supplementation. Wean FiO2 as tolerated. Patient currently maintained on 5 L and reports was using upwards of 6 L in the outpatient setting Continue with IV antibiotics ceftriaxone, azithromycin completed. Procalcitonin level is 0.5. Urine Legionella antigen is negative. Patient will be continued on home medication including Lasix although transition to IV and will increase to twice daily Continue insulin sliding scale and insulin regimen for better blood sugar control. Adjusting insulins accordingly to cover for elevated as patient is maintained on IV steroids Continue with GI, DVT prophylaxis. Chest x-ray today showed worsening pulmonary congestion, will increase Lasix to twice daily and will obtain a 2D echo as well as BNP Encouraged increase activity as tolerated Will follow-up with repeat labs as well as checks x-ray per pulmonary Patient with prolonged hospitalization and generalized weakness will have PT/OT therapy evaluate the patient. Overall prognosis is guarded at this time. The impression and plan of care has been dictated by Yolanda Salazar, Nurse Practitioner as directed. Dr. Antoni MD I have performed a history and examination and MDM of this patient, discussed the same with the dictator, and agree with the dictator's assessment and plan as written ,documented as a scribe. Based on total visit time, I have performed more than 50% of the visit. Objective - Vital Signs Vital signs: Vital Signs Temp 97.5 F L 12/08/23 14:00 Pulse 72 12/08/23 14:00 Resp 18 12/08/23 14:00 BP 122/67 12/08/23 14:00 Pulse Ox 90 L 12/08/23 14:00 FiO2 Intake & Output 12/07/23 12/08/23 12/08/23 18:59 06:59 18:59 Intake Total 480 Balance 480 Intake: Oral 480 Other: Voiding Method Toilet Toilet Toilet # Voids 5 3 # Bowel Movements 2 - Labs CBC & Chem 7: 12/08/23 08:22 12/08/23 08:22 Labs: Abnormal Lab Results - Last 24 Hours (Table) 12/07/23 12/07/23 12/07/23 Range/Units 06:08 16:53 20:19 WBC (3.8-10.6) k/uL Neutrophils # (1.3-7.7) k/uL Sodium (137-145) mmol/L BUN (9-20) mg/dL Glucose (74-99) mg/dL POC Glucose (mg/dL) 205 H 167 H (70-110) mg/dL NT-Pro-B Natriuret Pep 601 H (0-450) pg/mL 12/08/23 12/08/23 12/08/23 Range/Units 05:48 08:22 08:22 WBC 21.4 H (3.8-10.6) k/uL Neutrophils # 18.3 H (1.3-7.7) k/uL Sodium 136 L (137-145) mmol/L BUN 37 H (9-20) mg/dL Glucose 194 H (74-99) mg/dL POC Glucose (mg/dL) 121 H (70-110) mg/dL NT-Pro-B Natriuret Pep (0-450) pg/mL 06/19/24 Range/Units 11:25 WBC (3.8-10.6) k/uL Neutrophils # (1.3-7.7) k/uL Sodium (137-145) mmol/L BUN (9-20) mg/dL Glucose (74-99) mg/dL POC Glucose (mg/dL) 234 H (70-110) mg/dL NT-Pro-B Natriuret Pep (0-450) pg/mL
[2023-12-08 17:06] LABS: Glucose,Whole Blood 181 mg/dL (70-110)
[2023-12-08 20:08] LABS: Glucose,Whole Blood 211 mg/dL (70-110)
[2023-12-09 05:58] LABS: Glucose,Whole Blood 147 mg/dL (70-110)
[2023-12-09 07:14] VITALS: TEMP 97.3
--- NOTE | 2023-12-09 08:25 | XR ---
EXAMINATION TYPE: XR chest 1V portable DATE OF EXAM: 12/09/2023 HISTORY: Shortness of breath. COMPARISON: 12/07/2023 TECHNIQUE: Single view of the chest is submitted. FINDINGS: Demonstrated are scattered senescent parenchymal change. Continued cardiomegaly with pulmonary venous congestion scattered infiltrates which may reflect conge stive failure. Infiltrates of other etiology not excluded. Hilar and mediastinal structures are within normal limits. Degenerative changes are seen of the dorsal spine. IMPRESSION: 1. Continued cardiomegaly with pulmonary venous congestion scattered infiltrates which may reflect c ongestive failure. Infiltrates of other etiology not excluded.
[2023-12-09 10:42] LABS: Glucose,Whole Blood 105 mg/dL (70-110)
[2023-12-09 12:34] LABS: African American GFR (CKD) >90 (>60 ml/min/1.73 sqM); Anion Gap 11 mmol/L; Blood Urea Nitrogen 35 mg/dL (9-20); Calcium 8.9 mg/dL (8.4-10.2); Carbon Dioxide 25 mmol/L (22-30); Chloride 101 mmol/L (98-107); Glucose 98 mg/dL (74-99); Non-African American GFR(CKD) 84 (>60 ml/min/1.73 sqM); Sodium 137 mmol/L (137-145)
[2023-12-09 12:39] LABS: Potassium 4.4 mmol/L (3.5-5.1)
--- NOTE | 2023-12-09 13:18 | P.PN ---
Subjective Progress Note Date: 12/09/23 This is an 83-year-old male patient with known history of COPD who came into the emergency department having difficulties in breathing and the patient became progressively more short of breath over the past few days. The patient has been maintained on a combination of Yupelri and budesonide/Perforomist nebulized treatments on outpatient basis the patient has been utilizing Ventolin rescue inhaler on a as needed basis. He has chronic exertional dyspnea. His baseline FEV1 is noted of 83% of predicted. The patient has been on oxygen 2 L/min nasal cannula. His previous CAT scan of the chest was done on 09/27/2023 showed a stable 4 mm left lower lobe pulmonary nodule which is being monitored and the patient has stable hilar mediastinal adenopathy which is also being monitored. The largest lymph node was in the subcarinal area measuring around 1.2 cm in size. He is also known to have chronic A-fib, diabetes mellitus type 2, hypertension and secondary pulm hypertension. He has also previous history of bladder cancer under the care of urology. Typically wears oxygen 2 L/min nasal cannula. He has obstructive sleep apnea compliant with CPAP therapy at a pressure of 13 cm of water. He has symptoms of BPH, and chronic lower extremity edema. In the emergency department, the patient was experiencing difficulties in breathing, cough and congestion and chest tightness and wheezing. The white cell count was at 18 with a hemoglobin of 13 and a platelet count of 226. INR was at 1.3 with a PT of 13.6 BUN of 20 with a creatinine of 0.7 and sodium levels 137, the viral screen was negative. LFTs were essentially within normal limits. His EKG showed normal sinus rhythm with a first-degree AV block. No acute ischemic changes. Chest x-ray that was done in the emergency department was reviewed and the patient was found to have cardiomegaly and increased interstitial markings bilaterally and an area of consolidation of the left lung base consistent with underlying pneumonia. Malignancy is felt to be less likely as the patient's CAT scan of the chest that was done on 09/27/2023 showed only a stable 4 mm nodule left lower lobe and diffuse emphysema. The patient accordingly was started on Rocephin and Zithromax. He is currently on IV Solu- Medrol. He is on DuoNeb nebulized treatments [id number]. He is currently on oxygen at 6 L nasal cannula. On today's evaluation of 12/04/2023, the patient is being seen for a follow-up. The patient is doing well. Less short of breath compared to yesterday. Currently he is on oxygen at 4 L of nasal cannula. Pulse ox is 90%. The repeat chest x-ray that was done today shows no significant interval change and the patient continues to have moderate cardiomegaly and pulm vessel congestion and interstitial edema and ill-defined hazy opacities in the mid and lower lung zones bilaterally. The patient remains on bronchodilators. The patient remains on steroids. The patient remains on Rocephin and Zithromax. The patient is als o on Lasix 40 mg p.o. on a daily basis. Blood work from today shows a white cell count of 16 hemoglobin 4.4 and a platelet count of 270. BUN is at 23 with a creatinine of 0.8 and sodium is at 140. Glucose of 213. LFTs are essentially within normal limits. The patient has a procalcitonin level of 0.5. 12/05/2023, the patient is being seen for a follow-up. Patient is improving. Less short of breath compared to yesterday. Remains on same antibiotic coverage. Sputum Gram stain and culture blood culture still pending. Meanwhile, the patient remains on a combination of Rocephin and Zithromax. The patient was also given Lasix 40 mg IV on a daily basis and the patient remains in negative fluid balance and is producing excellent urine output. He is currently on 4 L of O2 nasal cannula. His pulse ox in the order of 90 to 92%. No chest pain. No pleurisy. No hemoptysis. No other complaints otherwise for now. The patient is seen today December 06, 2023 in follow-up on the regular medical floor. He is currently sitting up in a chair. Awake and alert in no acute distress. Still with some cough and congestion. He is maintaining good O2 saturations in the 90s on 4 L/min per nasal cannula. He is continued on DuoNeb inhalations, Pulmicort and performist inhalations, Solu-Medrol. Antibiotics in the form of ceftriaxone. Lovenox for DVT prophylaxis he remains on IV diuretics. No accurate I & O. Blood and sputum cultures revealed no growth. White count 19.1. Hemoglobin 13.1. Platelets 306. Sodium 138. Potassium 4.1. Bicarb 21. BUN 34. Creatinine 0.9. Glucose 214. The patient is seen today December 07, 2023 in follow-up on the regular medical floor. He is up ambulating in his room. Awake and alert in no acute distress. Feeling better today compared to yesterday. Still with some dyspnea on exertion. Still requiring oxygen at 5 L/min per nasal cannula. He remains on bronchodilators and steroids. He remains on IV diuretics. Lovenox for DVT prophylaxis. Currently in a -600 mL balance. White count 19.9. Hemoglobin 13.0. Platelets 271. Sodium 140. Potassium 4.4. Bicarb 24. BUN 31. Creatinine 0.9. Glucose 127. AST 52. ALT 120. Blood and sputum cultures revealed no growth. The patient is seen today December 08, 2023 in follow-up on the regular medical floor. He is currently seen in about a chair at the bedside. Awake and alert in no acute distress. Denies any worsening shortness of breath, cough or congestion. He is maintaining O2 saturation in the 90s on 5 L/min per nasal cannula. He remains on IV diuretics, no accurate intake and output recorded. He is continued on DuoNeb ventilations, Pulmicort and performing scintillations, Solu-Medrol. Lovenox for DVT prophylaxis. Sputum culture revealed no growth. Blood cultures revealed no growth. White count 21.4. Hemoglobin 14.1. Platelets 299. Sodium 136. Potassium 4.1. Bicarb 25. BUN 37. Creatinine 0.85. Glucose 194. The patient is seen today December 09, 2023 in follow-up on the regular medical floor. He is awake and alert in no acute distress. Up in a chair at the bed side. Maintaining O2 saturations in the 90s on 5 L/min per nasal cannula. Has been afebrile. Hemodynamically stable. Blood cultures revealed no growth. Sputum culture revealed no growth. Sodium 137. Potassium 4.4. Bicarb 25. BUN 35. Creatinine 0.8. Glucose 98. He remains on DuoNeb inhalations, Pulmicort and Perforomist inhalations, Solu-Medrol. Lovenox for DVT prophylaxis. Antibiotics in the form of ceftriaxone. Chest x-ray reveals cardiomegaly with mild pulmonary vascular congestion. Echocardiogram revealed preserved left ventricular systolic function with ejection fraction of 55 to 60%. Grade 1 diastolic dysfunction. Objective - Vital Signs Vital signs: Vital Signs Temp 97.3 F L 12/09/23 07:13 Pulse 72 12/09/23 13:06 Resp 18 12/09/23 07:13 BP 144/62 12/09/23 07:13 Pulse Ox 90 L 12/09/23 07:13 FiO2 Intake & Output 12/08/23 12/09/23 12/09/23 18:59 06:59 18:59 Other: Voiding Method Toilet Toilet # Voids 3 4 - Exam GENERAL EXAM: Alert, morbidly obese 83-year-old gentleman, up in a chair, on 5 L nasal cannula, in no apparent distress. HEAD: Normocephalic. EYES: Normal reaction of pupils, equal size. NOSE: Clear with pink turbinates. THROAT: No erythema or exudates. NECK: No masses, no JVD. CHEST: No chest wall deformity. LUNGS: Equal air entry with bilateral scattered rhonchi. CVS: S1 and S2 normal with no audible murmur, regular rhythm. ABDOMEN: No hepatosplenomegaly, normal bowel sounds, no guarding or rigidity. SPINE: No scoliosis or deformity SKIN: No rashes CENTRAL NERVOUS SYSTEM: No focal deficits, tone is normal in all 4 extremities. EXTREMITIES: There is 1-2+ peripheral edema. No clubbing, no cyanosis. Peripheral pulses are intact. - Labs CBC & Chem 7: 12/08/23 08:22 12/09/23 11:11 Labs: Abnormal Lab Results - Last 24 Hours (Table) 12/08/23 12/08/23 12/09/23 Range/Units 17:03 20:06 05:57 BUN (9-20) mg/dL POC Glucose (mg/dL) 181 H 211 H 147 H (70-110) mg/dL 12/09/23 Range/Units 11:11 BUN 35 H (9-20) mg/dL POC Glucose (mg/dL) (70-110) mg/dL Microbiology - Last 24 Hours (Table) 12/03/23 14:00 Blood Culture - Final Blood Assessment and Plan Assessment: Acute on chronic hypoxic respiratory failure secondary to pneumonia, currently on 5 L of O2 nasal cannula Acute left lower lobe pneumonia with obvious area of consolidation of the left lung base. The patient remains on Rocephin and completed Zithromax. Cultures revealed no growth. Procalcitonin level is at 0.5 Acute exacerbation of chronic COPD secondary to above. FEV1 of 83% Chronic exertional dyspnea with hypoxemia secondary to a component of COPD and addition to obesity and deconditioning. He may have an underlying restrictive physiology related to his body habitus. Spirometry shows an FEV1 of 83% of predicted . He has a rolling walker. Obstructive sleep apnea syndrome, on home CPAP pressure of 13 cm of water with C-Flex of 3 Malignant tumor of urinary bladder, transurethral resection of bladder tumor and the patient will have a follow-up evaluation sometime next year with urology. Under the care of Dr Zamora. A follow-up urine cytology came back negative for malignancy. A follow-up CT urography came back negative for malignancy. There was a incidental 7 mm nodule in the right lower lobe. the patient has been told that he has been disease-free by his urologist based on a recent scope that he underwent. Bladder cancer Solitary nodule of lung, incidental 7 mm posterior left basilar pulmonary nodule, not seen previously on previous images. There was also prominent dependent atelectasis without any pleural effusions. A CAT scan of the chest was recommended to reassess and also survey the remainder of the lungs. CT of the chest on 09/27/23 and the nodule is 4 mm and stable and the subcarinal LN is also stable Obesity, BMI 47.9 kg/m Mitral valve regurgitation-mitral valve has shown moderate degree of r egurgitation based on an echocardiogram that was done in October 2015. He has a moderate /severe MR and the finding according to cardiology has been stable Benign prostatic hyperplasia Paroxysmal atrial fibrillation, current rhythm is sinus Type 2 diabetes mellitus Hypertensive disorder, hypertensive heart disease with concentric LVH based on echocardiogram and a preserved LV function Secondary pulmonary hypertension, estimated PASP of >60 Chronic edema of lower extremity Poor overall functional performance based on the above-mentioned multiple comorbidities Plan: The patient was seen and evaluated Chest x-ray, labs and medications reviewed Echocardiogram reviewed Cleared for discharge from the pulmonary standpoint Continue his home oxygen, pulmonary medications Complete a prednisone taper Follow-up in our office in 1 week I have personally seen and examined the patient, performed the documentation and the assessment and plan as written. Number of minutes spent on the visit: 10.
[2023-12-09 14:16] VITALS: BMI 47.9
[2023-12-09 14:25] VITALS: BP 132/74; PULSE 68
[2023-12-10] MEDS ORDERED: predniSONE 20 MG TAB PO SCH (09:00)
== END 2023-12-09 15:05 | disposition home health service (06) | DRG 871 ==
LOC: EC 12:38 → 4SSUR 14:15
PROVIDERS: ADMIT Internal Medicine; ATTEND Internal Medicine
DX: A41.89 Other specified sepsis (principal); I50.33 Acute on chronic diastolic (congestive) heart failure; J96.21 Acute and chronic respiratory failure with hypoxia; J18.9 Pneumonia, unspecified organism; J44.1 Chronic obstructive pulmonary disease with (acute) exacerbation; Z68.42 Body mass index [BMI] 45.0-49.9, adult; J44.0 Chronic obstructive pulmonary disease with (acute) lower respiratory infection; Z11.52 Encounter for screening for COVID-19; I27.29 Other secondary pulmonary hypertension; I48.0 Paroxysmal atrial fibrillation; N40.0 Benign prostatic hyperplasia without lower urinary tract symptoms; Z85.51 Personal history of malignant neoplasm of bladder; Z99.81 Dependence on supplemental oxygen; E78.5 Hyperlipidemia, unspecified; F17.210 Nicotine dependence, cigarettes, uncomplicated; G47.33 Obstructive sleep apnea (adult) (pediatric); I10 Essential (primary) hypertension; I25.10 Atherosclerotic heart disease of native coronary artery without angina pectoris; E66.01 Morbid (severe) obesity due to excess calories; I11.0 Hypertensive heart disease with heart failure; I44.0 Atrioventricular block, first degree; I08.1 Rheumatic disorders of both mitral and tricuspid valves; Z79.52 Long term (current) use of systemic steroids; Z79.84 Long term (current) use of oral hypoglycemic drugs; Z79.899 Other long term (current) drug therapy; Z96.652 Presence of left artificial knee joint; Z98.42 Cataract extraction status, left eye; Z98.41 Cataract extraction status, right eye; Z87.19 Personal history of other diseases of the digestive system
CPT/HCPCS: 36415; 71045; 71046; 80048; 80053; 83036; 83605; 83735; 83880; 84145; 85025; 85610; 85730; 87040; 87070; 87205; 87449; 87636; 93005; 93306; 94640; 94760; 96361; 96365; 96368; 96375; 99291

== ENCOUNTER → 2023-12-17 | Outpatient (CLI) | payer MEDICARE ==
--- NOTE | 2023-12-22 14:09 | CT ---
EXAMINATION TYPE: CT angio chest DATE OF EXAM: 12/17/2023 COMPARISON: 09/27/2023 HISTORY: dyspnea. COPD, pneumonia CT DLP: 1003.0 mGycm CONTRAST: CT chest with contrast and 3D reconstruction with MIP imaging is performed with IV Contrast, patient injected with 100ml mL of Isovue 370. Contrast-enhanced CT of the chest was performed through the course of the pulmonary arteries with jose ramon g and mediastinal window settings submitted. 3D reconstruction with MIP imaging was also performed. PULMONARY ARTERIES: The pulmonary arteries and their major tributaries are patent. I do not see caroline dence for sizable filling defect to suggest pulmonary embolic process. LUNGS: Basilar infiltrates noted. Correlate for pneumonia. Moderate COPD. No evidence for atelectasis . No pulmonary nodule or mass is detected. No pleural effusion. MEDIASTINUM: Thoracic aorta is of normal caliber,however, evaluation is limited given timing of the contrast bolus. If there is concern for thoracic aortic pathology consider LACY. Correlate clinicall y . The heart is not enlarged. No evidence for mediastinal mass. No mediastinal lymph nodes greater than 1cm. HILAR STRUCTURES: No evidence for mass. No hilar lymph nodes greater than 1 cm. UPPER ABDOMEN: No significant abnormality is seen. IMPRESSION: 1. Basilar infiltrates noted. Correlate for pneumonia. Moderate COPD.
== END | disposition home or self-care (01) ==
LOC: RADCTMAIN 12:03
PROVIDERS: ATTEND Internal Medicine Critical Care Medicine
DX: R06.09 Other forms of dyspnea (principal); J18.9 Pneumonia, unspecified organism; R59.0 Localized enlarged lymph nodes; I71.21 Aneurysm of the ascending aorta, without rupture; J44.0 Chronic obstructive pulmonary disease with (acute) lower respiratory infection
CPT/HCPCS: 71275; Q9967

== ENCOUNTER → 2024-03-14 | Outpatient (CLI) | payer MEDICARE ==
[2024-03-14 12:56] LABS: African American GFR (CKD) 86 (>60 ml/min/1.73 sqM); Blood Urea Nitrogen 25 mg/dL (9-20); Non-African American GFR(CKD) 74 (>60 ml/min/1.73 sqM)
--- NOTE | 2024-03-14 13:35 | CT ---
EXAMINATION TYPE: CT chest w con DATE OF EXAM: 03/14/2024 COMPARISON: 12/17/2023 HISTORY: difficulty breathing CT DLP: 659.5 mGycm Automated exposure control for dose reduction was used. CONTRAST: CT scan of the chest is performed with IV Contrast, patient injected with 100 mL of Isovue 300. FINDINGS: LUNGS: Severe emphysematous changes noted. Mild scattered subpleural fibrosis. No evidence for pulmon elijah nodule or mass. No volume loss or pleural effusion. MEDIASTINUM: Stable low right peritracheal 1.4 cm lymph node. No additional lymph nodes greater than 1 cm. No pericardial effusion is seen. Thoracic aorta is of normal caliber. The heart is not enlarge d. UPPER ABDOMEN: No significant abnormality appreciated. OTHER: No additional significant abnormality is seen. IMPRESSION: 1. Severe emphysematous changes with mild scattered subpleural fibrosis. [facility], , 03/14/2024 1:33 PM
== END | disposition home or self-care (01) ==
LOC: RADCTMAIN 11:54
PROVIDERS: ATTEND Internal Medicine Critical Care Medicine
DX: R06.09 Other forms of dyspnea
CPT/HCPCS: 36415; 71260; 82565; 84520

== ENCOUNTER → 2024-03-27 | Outpatient (CLI) | payer MEDICARE ==
[2024-03-27 09:09] LABS: INR 1.1 (<1.2); Partial Thromboplastin Time 25.9 sec (22.0-30.0); Prothrombin Time 11.5 sec (10.0-12.5)
[2024-03-27 11:19] LABS: HCT 37.9 % (39.6-50.0); HGB 12.8 g/dL (13.0-17.0); MCH 30.5 pg (27.0-32.0); MCHC 33.8 g/dL (32.0-37.0); MCV 90.5 FL (80.0-97.0); Mean Platelet Volume 9.3 FL (9.5-12.2); NRBC Per 100 WBC 0 X 10*3/uL (0.00-0.01); Platelet Count 233 X 10*3/uL (140-440); RBC 4.19 X 10*6/uL (4.40-5.60); RDW 13.5 % (11.5-14.5); WBC 7.96 X 10*3/uL (4.50-10.00)
[2024-03-27 11:26] LABS: ALT 20 U/L (10-49); AST 23 U/L (14-35); Albumin 4.1 g/dL (3.8-4.9); Albumin/Globulin Ratio 1.58 Ratio (1.60-3.17); Alkaline Phosphatase 97 U/L (41-126); Blood Urea Nitrogen 17.3 mg/dL (9.0-27.0); Calcium 9.2 mg/dL (8.7-10.3); Carbon Dioxide 20.4 mmol/L (21.6-31.8); Chloride 106 mmol/L (96-109); Globulin 2.6 g/dL (1.6-3.3); Glucose 98 mg/dL (70-110); Potassium 4.4 mmol/L (3.5-5.5); Sodium 139 mmol/L (135-145); Total Bilirubin 0.4 mg/dL (0.3-1.2); Total Protein 6.7 g/dL (6.2-8.2)
== END | disposition home or self-care (01) ==
LOC: LABPAT 08:04
PROVIDERS: ATTEND Orthopaedic Surgery
DX: Z01.812 Encounter for preprocedural laboratory examination
CPT/HCPCS: 80053; 85027; 85610; 85730; 87070

== ENCOUNTER 2024-04-18 06:54 | Day surgery (SDC) | payer MEDICARE ==
[~2024-04-18 06:54] MED LIST changes: -ceFAZolin 3 GM in SODIUM CHLORIDE 0.9% 100 ML IVPB PRN
[2024-04-18] MEDS ORDERED: HYDROmorphone 0.5 MG/0.5 ML SYRINGE IVP PRN ×3 (07:28→08:49)
[2024-04-18] MEDS ORDERED: LIDOCAINE 1% (10MG/ML) FOR IV START INTRADERMA PRN (07:28)
[2024-04-18] MEDS: IV FLUID CONTINUATION 1,000 ML IV ONE (07:43)
[2024-04-18 07:53] LABS: Glucose,Whole Blood 91 mg/dL (70-110)
[2024-04-18] MEDS: ONDANSETRON 4 MG/2 ML VIAL IVP ONE (08:00)
[2024-04-18] MEDS: MELOXICAM 7.5 MG TAB PO PRN (08:01)
[2024-04-18] MEDS: GABAPENTIN 300 MG CAP PO PRN (08:01)
[2024-04-18] MEDS: ACETAMINOPHEN TAB 500 MG TAB PO PRN (08:01)
[2024-04-18] MEDS: fentaNYL (PF) 50 MCG/ML 2 ML AMP IVP PRN (08:06)
[2024-04-18] MEDS: MIDAZOLAM 2 MG/2 ML VIAL IV ONE (08:31)
[2024-04-18] MEDS ORDERED: MAGNESIUM HYDROXIDE 2,400 MG/30 ML CUP PO PRN (08:49)
[2024-04-18] MEDS ORDERED: NA PHOS,M-B/NA PHOS,DI-BA 133 ML ENEMA RECTAL PRN (08:49)
[2024-04-18] MEDS ORDERED: bisacodyL 10 MG SUPP RECTAL PRN (08:49)
[2024-04-18] MEDS ORDERED: ONDANSETRON 4 MG/2 ML VIAL IVP PRN (08:49)
[2024-04-18] MEDS ORDERED: NALOXONE 0.4 MG/ML 1 ML VIAL IV PRN (08:49)
[2024-04-18] MEDS ORDERED: HYDROcodone/APAP 7.5-325MG 1 EACH TAB PO PRN (08:51)
[2024-04-18] MEDS ORDERED: GLYCOPYRROLATE 0.2 MG/ML 2 ML VIAL ONE (09:00)
[2024-04-18] MEDS ORDERED: PROPOFOL 10 MG/ML 20 ML VIAL IV ONE (09:00)
[2024-04-18] MEDS ORDERED: diphenhydrAMINE 50 MG/ML 1 ML VIAL ONE (09:00)
[2024-04-18] MEDS ORDERED: ROPIVACAINE 5 MG/ML 30 ML VIAL ONE (09:00)
[2024-04-18] MEDS ORDERED: fentaNYL (PF) 50 MCG/ML 2 ML AMP ONE (09:00)
[2024-04-18] MEDS ORDERED: MIDAZOLAM 2 MG/2 ML VIAL ONE (09:00)
[2024-04-18] MEDS ORDERED: TRANEXAMIC 1,000 MG/100ML-NACL PREMIX BAG ONE (09:00)
[2024-04-18] MEDS ORDERED: KETAMINE HCL IN 0.9 % NACL 50 MG/5 ML SYRINGE ONE (09:00)
--- NOTE | 2024-04-18 09:04 | P.ANPRN ---
Procedure Note - Anesthesia - Nerve Block Performed Right Adductor Canal Infusion Time Out Performed: Yes (0805) Date of Procedure: 04/18/24 Procedure Start Time: 08:06 Procedure Stop Time: 08:11 Location of Patient: PreOp Indication: Acute Post-Operative Pain, Requested by Surgeon Specifically requested for management of pain by DrDivina: Jered Finch Sedation Type: Sedate with meaningful contact maintained Preparation: Sterile Prep, Sterile Dressing Position: Supine Catheter Depth at Skin (cm): 8 Catheter: Indwelling Needle Types: Pajunk Needle Gauge: 18 Ultrasound used to visualize needle placement: Yes Ultrasound used to observe medication spread: Yes Injectate: 0.5% Ropivacaine (see comment for volume) (20) Blood Aspirated: No Pain Paresthesia on Injection Noted: No Resistance on Injection: Normal Image Stored and Saved: Yes Events: Uneventful and Well Tolerated
--- NOTE | 2024-04-18 09:05 | P.ANPRN ---
Procedure Note - Anesthesia - Nerve Block Performed Right iPack Single Time Out Performed: Yes (08) Date of Procedure: 04/18/24 Procedure Start Time: 08:12 Procedure Stop Time: 08:14 Location of Patient: PreOp Indication: Acute Post-Operative Pain, Requested by Surgeon Specifically requested for management of pain by DrDivina: Jered Finch Sedation Type: Sedate with meaningful contact maintained Preparation: Sterile Prep Position: Supine Catheter: None Needle Types: Pajunk Needle Gauge: 21 Ultrasound used to visualize needle placement: Yes Ultrasound used to observe medication spread: Yes Injectate: 0.5% Ropivacaine (see comment for volume) (20cc) Blood Aspirated: No Pain Paresthesia on Injection Noted: No Resistance on Injection: Normal Image Stored and Saved: Yes Events: Uneventful and Well Tolerated
[2024-04-18] MEDS: ceFAZolin 3 GM in SODIUM CHLORIDE 0.9% 100 ML IVPB PRN (09:06)
[2024-04-18] MEDS: ceFAZolin 1,000 MG in SODIUM CHLORIDE 0.9% 1,000 ML IRRIGATION ONE (09:06)
--- NOTE | 2024-04-18 10:17 | P.OP ---
Date of Procedure: 04/18/24 Preoperative Diagnosis: Severe osteoarthritis right knee Postoperative Diagnosis: Severe osteoarthritis right knee Procedure(s) Performed: Right total knee arthroplasty Implants: Li [employer] Nephew Journey II CR Oxinium cruciate retaining femoral component size 7, right [employer] Journey nonporous tibial baseplate size 6, right [employer] Journey II, XLPE Deep Dished articular insert, size 10 mm, Size 5-6, right [employer] Journey Ashley II resurfacing patellar component, oval, 32 mm All components were cemented using Palacos R bone cement The articulation is Oxinium on polyethylene Anesthesia: spinal Surgeon: Jered Finch Youth Career Specialist #1: Maddi Romero Estimated Blood Loss (ml): 50 Pathology: none sent Condition: stable Disposition: PACU Indications for Procedure: The patient's knee is end-stage, and conservative management has failed. The operation of knee replacement has been discussed at length in the office, as well as potential risks and complications. These are inclusive of, but not limited to: Infection, bleeding, scarring, discomfort, stiffness, blood vessel and nerve damage, need for further surgery, failure to relieve symptoms, persistence, recurrence, or worsening of problems, loosening, dislocation, wear, blood clot, pulmonary embolism, , gait dysfunction, stiffness, and other risks as discussed in the office. Patient elects to proceed and the consent form has been signed. Operative Findings: The operative findings are consistent with severe osteoarthritis of the right knee Description of Procedure: The patient was seen in the preoperative area, the consent was reviewed and the operative site was marked with a skin marker. The patient verified the procedure and the operative site. An adductor canal pain catheter and an iPACK block were placed by anesthesia in the preoperative area. The patient was then brought to the operating room and positioned on the operating room table in the supine position. Preoperative antibiotics and a gram of tranexamic acid were given intravenously. A spinal anesthetic was administered by the anesthesia department. Care was taken to make sure that all pressure points were adequately padded. A tourniquet was placed on the upper thigh and the lower extremity was prepped with ChloraPrep and draped in usual sterile fashion. A universal time-out was then performed which confirmed the patient's name, surgical site, ALLERGIES, and consent. The lower extremity was then exsanguinated and tourniquet was inflated to 250 mmHg. A standard anterior midline approach to the knee was performed. The skin and subcutaneous tissue were sharply dissected down to the patellar tendon. A medial parapatellar arthrotomy was then performed. The knee was then extended, the patellar was everted, and the knee was flexed. The infra-patellar fat pad was removed in order to enhance exposure. The anterior horns of both menisci were excised, and a release was performed to the posterior medial aspect of the knee. On gross visual inspection, there was complete loss of articular cartilage in the medial and patellofemoral joint spaces. There was also significant cartilage damage in the lateral compartment. There were multiple periarticular osteophytes globally about the knee which were then removed with a Ronguer. The femoral canal was then opened with the 9.5 mm intramedullary drill. The 8 mm intramedullary isabelle was then inserted into the femoral canal with the distal femoral cutting guide set for 5 of valgus. The distal femoral cutting block was then pinned in place. The intramedullary isabelle was then removed, and the distal femur was then cut. The cutting block was then removed and the cut was checked for symmetry. The resected bone was then measured to confirm the appropriate distal femoral resection. Next, the sizing guide was then placed and set for 3 external rotation based off of the epicondylar axis and Mcdowell's line. Pins were then placed and the drill holes, and the femur was sized with the sizing stylus. The pins were then removed, and the sizing guide was then removed. The spikes of the appropriate size femoral block was then placed into the predrilled holes, and malleted into place. Two 45 mm pins were then placed into the fixation holes on the cutting block. An kevin wing was then used to ensure there would be no notching with the anterior cut. The anterior condyles were cut without notching. The anterior chord cut was then performed, followed by the posterior cut, posterior chamfer cut, and the anterior chamfer cut. The collateral ligaments were protected during the entire process. The cutting block was then removed. Any remaining bone and osteophytes were removed from the femur with a Ronguer. Attention was then directed to the tibia. The remaining ACL was removed with a Ronguer, and the tibia was then gently subluxed forward with a large bent knee retractor. Any remaining menisci were excised. The posterior lateral corner was cauterized in order to coagulate the lateral geniculate artery. The extra medullary tibial cutting guide was then placed, set for the appropriate rotation, slope, and depth of resection. The proximal tibia cutting guide was then pinned in place. Proximal tibia was then cut and sized. A curved osteotome was then used to remove any posterior osteophytes from the distal femur. The femoral trial was placed. A narrow saw blade was then used to remove the anterior intracondylar femoral bone. The CR notch trial was then placed. The tibial trial was placed with the appropriate-sized insert. The knee was able to fully extend and flex to 130 and was stable throughout all range of motion. The knee was then extended and the patella was everted. Patella was then measured, and then using an osteotomy guide, the patella was cut at the appropriate level. The patellar component was sized. The patellar drill guide was placed and the patella was drilled. The patella trial was then placed. The knee was then taken through range of motion with the patella trial and the patella tracked normally using the no thumbs technique. The patella trial was then removed. The knee was then flexed and lug holes were drilled through the femoral trial and the femoral trial was then removed. The tibial was then re- exposed, and the tibial broach guide was then pinned in place after it was set for the appropriate rotation to allow for the most coverage without overhang. The tibia was then reamed and broached. The femoral canal was plugged with autologous bone. The cut surfaces of bone were then irrigated with pulsatile lavage. The knee was also irrigated with Irrisept solution. The components were then opened, the cement was mixed. Cement was placed on the backside of the femoral, tibial, and patellar components. Cement was then applied to the tibial surface and pressurized into the surface using finger pressurization technique. The tibial component was then applied and excess cement was removed after it was impacted securely noted to be flush with the cut surface. In similar fashion, the cement was applied to the cut femoral surface, pressurized and using finger pressurization the component was impacted in place. Excess cement was removed. The polyethylene spacer was then implanted and locked into position. Patellar component was then applied in a similar technique and the patellar clamp was used to hold patella in place while the cement hardened. The knee was held in full extension while the cement hardened. Once the cement had fully hardened, the knee was reinspected. Any other cement extrusion was removed the final range of motion testing showed range of motion from 0-130 with excellent stability, both medial and laterally and appropriate alignment of the leg. Patella tracked normally. After the cemented hardened, the tourniquet was released and hemostasis was obtained. A second gram of transexamic acid was given intravenously. The knee was again irrigated. The knee was again taken through range of motion and found to be stable throughout all range of motion of 0-130, and the patella tracked normally. The fascia was then closed with 0 Vicryl followed by #2 strata fix suture. The subcutaneous tissue was closed with 3-0 Vicryl and 3-0 strata fix. Exofin glue was used for the skin and placed with the knee in flexion. After the glue had dried, and Optafoam silver impregnated dressing was applied. A lightly compressive dressing was applied using web roll and Brandan wrap. Patient was then transferred to the stretcher and taken to recovery room in stable condition. Sponge and needle counts were correct. The financial administrative assistant YOVANY Valdez was required due the complexity surgery and the need for a skilled rn medical surgical. She assisted in positioning, draping, retraction, and closure of the wound.
[2024-04-18] MEDS: ROPIVACAINE 1,100 MG, SODIUM CHLORIDE 0.9% 500 ML 330 ML, EMPTY PAIN BALL 1 EACH MISCELLANE PRN (11:09)
--- NOTE | 2024-04-18 11:16 | XR ---
EXAMINATION TYPE: XR knee limited RT DATE OF EXAM: 04/18/2024 11:10 AM INDICATION: Patient age:Male; 83 years old; Reason for study: Evaluation for Postop abnormality and alignment; PHH. COMPARISON: None. TECHNIQUE: The Right knee(s) was examined in frontal and lateral projections. FINDINGS: Status post total right knee arthroplasty changes with hardware in appropriate alignment and intact. No evidence of fracture. Subcutaneous lucencies and lucencies within the joint consistent with surgical changes. Vascular calcifications noted. IMPRESSION: Status post total right knee arthroplasty changes with hardware intact and appropriate alignment. No fractures identified. [facility], , 04/18/2024 11:14 AM
[2024-04-18 12:35] LABS: Glucose,Whole Blood 88 mg/dL (70-110)
[2024-04-18] MEDS: LACTATED RINGERS 1,000 ML IV SCH (13:14)
[2024-04-18] MEDS: SODIUM CHLORIDE 0.9% 1,000 ML IV SCH (13:14)
[2024-04-18] MEDS ORDERED: DEXTROSE 50% SYRINGE 50 ML IVP PRN ×2 (15:06)
[2024-04-18] MEDS ORDERED: ALBUTEROL NEBULIZED 2.5 MG/3 ML INHALATION PRN (15:06)
[2024-04-18] MEDS: ceFAZolin 3 GM in SODIUM CHLORIDE 0.9% 100 ML IVPB SCH (16:34)
[2024-04-18 16:38] LABS: Glucose,Whole Blood 95 mg/dL (70-110)
[2024-04-18] MEDS: INSULIN ASPART (NovoLOG) 100 UNIT/ML VIAL SQ SCH (16:50)
[2024-04-18] MEDS: HYDROcodone/APAP 7.5-325MG 1 EACH TAB PO PRN (18:47)
[2024-04-18] MEDS: lisinopriL 10 MG TAB PO SCH (19:49)
[2024-04-18] MEDS: ASPIRIN 325 MG TAB PO SCH (19:50)
[2024-04-18] MEDS: SENNOSIDES-DOCUSATE SODIUM 1 EACH TAB PO SCH (19:50)
[2024-04-18] MEDS: SERTRALINE 50 MG TAB PO SCH (19:50)
[2024-04-18 20:31] LABS: Glucose,Whole Blood 104 mg/dL (70-110)
[2024-04-18] MEDS: IPRATROPIUM 0.5 MG/2.5 ML NEBU INHALATION SCH (21:10)
[2024-04-18] MEDS: SYMBICORT 80-4.5 MCG INHALER INHALATION SCH (21:10)
[2024-04-18] MEDS: HYDROmorphone 0.5 MG/0.5 ML SYRINGE IVP PRN (22:44)
--- NOTE | 2024-04-18 23:49 | P.CONS ---
History of Present Illness - Reason for Consult Consult date: 04/18/24 Medical management - Chief Complaint Right knee arthroplasty - History of Present Illness Patient is a 83-year-old male with a past medical history of COPD on oxygen via nasal cannula, obstructive sleep apnea on CPAP at home patient is, hypertension, diabetes type 2 [id number], history of bladder cancer, prior history of smoking was admitted to the hospital for elective right total knee arthroplasty. Patient tolerated the procedure very well. Postoperatively patient was receiving oxygen via nasal cannula at 6 L. Currently down to 2 L via nasal cannula. Denied any complaints of chest pain or shortness of breath. No nausea vomiting abdominal pain or diarrhea. No cough or sputum production. Laboratory data is not available at this time. Review of Systems Constitutional: Patient denies any fever or chills . No generalized weakness or weight loss. Abdomen: Patient denied nausea vomiting and diarrhea and abdominal pain. Cardiovascular: Patient denies any chest pain or short of breath no palpitations. Respiratory: patient denied any cough or sputum production. No shortness of breath Neurologic: Patient denied any numbness or tingling. no headache. Musculoskeletal: Patient denies any complaints of joint swelling or deformity. Skin: Negative Psychiatric: Negative Endocrine: No heat or cold intolerance. No recent weight gain. Genitourinary: No dysuria or hematuria. All other 14 point ROS negative except the above Past Medical History Past Medical History: Cancer, COPD, Diabetes Mellitus, Hyperlipidemia, Hypertension, Sleep Apnea/CPAP/BIPAP Additional Past Medical History / Comment(s): leaky heart valve, bladder cancer, uses CPAP History of Any Multi-Drug Resistant Organisms: None Reported Past Surgical History: Cholecystectomy, Hernia Repair, Joint Replacement, Tonsillectomy Additional Past Surgical History / Comment(s): LEFT KNEE replacement, bladder surgery, bilat cataracts. Past Anesthesia/Blood Transfusion Reactions: No Reported Reaction Additional Past Anesthesia/Blood Transfusion Reaction / Comm: No hx of blood transfusion. Past Psychological History: No Psychological Hx Reported Smoking Status: Former smoker Past Alcohol Use History: None Reported Additional Past Alcohol Use History / Comment(s): quit in 1961, smoked for > 30 yrs, up to 3 PPD Past Drug Use History: None Reported - Past Family History Mother Family Medical History: Cancer Additional Family Medical History / Comment(s): BRAIN Medications and Allergies Home Medications Medication Instructions Recorded Confirmed Type Finasteride [Proscar] 5 mg PO DAILY 11/22/14 04/18/24 History Multivitamins, Thera [Multivitamin 1 tab PO DAILY 11/22/14 04/18/24 History (formulary)] Glucosam/Wilver-Msm1/C/Storm/Bosw 1 tab PO DAILY 03/08/17 04/18/24 History [Glucosamine-Chondroitin Tablet] Mv-Mn/C/Glutamin/Lysin/Obzz953 1 tab PO DAILY 03/08/17 04/18/24 History [Airborne Gummies] Albuterol Sulfate [Proair Hfa] 1 - 2 puff INHALATION RT-Q6H PRN 04/15/20 04/18/24 History Atorvastatin [Lipitor] 20 mg PO DAILY 06/05/21 04/18/24 History traMADol HCL 50 mg PO Q4-6H PRN 10/06/23 04/18/24 History Potassium Chloride ER [K-Dur 10] 10 meq PO DAILY 12/03/23 04/18/24 History Sertraline [Zoloft] 50 mg PO HS 12/03/23 04/18/24 History dilTIAZem HCL [Cardizem CD] 120 mg PO DAILY 12/03/23 04/18/24 History lisinopriL [Zestril] 10 mg PO BID 12/03/23 04/18/24 History metFORMIN HCL ER [Glucophage XR] 1,000 mg PO W/SUPPER 12/03/23 04/18/24 History Aspirin [[place] Aspirin EC] 81 mg PO DAILY 04/11/24 04/18/24 History Fluticasone/Umeclidin/Vilanter 1 inhalation INHALATION HS 04/11/24 04/18/24 History [Trelegy Ellipta 100-62.5-25] Furosemide [Lasix] 40 mg PO DAILY 04/11/24 04/18/24 History Semaglutide [Ozempic] 0.25 mg SQ Q7D 04/11/24 04/18/24 History guaiFENesin [Mucinex] 600 mg PO Q12HR PRN 04/11/24 04/18/24 History Aspirin 325 mg PO BID #60 tab 04/18/24 Rx HYDROcodone/APAP 7.5-325MG [[place] 1 - 2 tab PO Q6H PRN #32 tab 04/18/24 Rx 7.5-325] Sennosides [Senokot] 2 tab PO DAILY PRN #60 tablet 04/18/24 Rx Allergies Allergy/AdvReac Type Severity Reaction Status Date / Time No Known Allergies Allergy Verified 04/18/24 07:57 Physical Exam Vitals: Vital Signs Temp Pulse Pulse Resp BP BP Pulse Ox 04/18/24 13:15 66 16 122/59 94 L 04/18/24 12:45 64 16 109/51 96 04/18/24 12:30 67 16 109/56 97 04/18/24 12:15 67 18 109/56 93 L 04/18/24 12:00 66 18 111/55 94 L 04/18/24 11:45 67 18 113/58 94 L 04/18/24 11:30 64 18 121/60 100 04/18/24 11:15 65 18 117/58 100 04/18/24 11:00 70 18 110/54 100 04/18/24 10:45 97.8 F 75 18 124/59 93 L 04/18/24 08:28 59 L 18 148/61 04/18/24 07:31 97.1 F L 65 20 138/68 94 L 04/18/24 07:28 97.1 F L 65 20 138/68 94 L Intake and Output 04/18/24 04/18/24 04/18/24 06:59 14:59 22:59 Intake Total 801 Output Total 50 Balance 751 Intake: IV 801 Output: Estimated Blood Loss 50 Other: Weight 132.9 kg PHYSICAL EXAMINATION: Patient is lying in the bed comfortably, no acute distress, awake alert and oriented. Morbidly obese.. HEENT: Normocephalic. Neck is supple. Pupils reactive. Nostrils clear. Oral cavity is moist. Neck reveals no JVD, carotid bruits, or thyromegaly. CHEST EXAMINATION: Trachea is central. Symmetrical expansion. Bibasilar diminished sounds. Lung lucero clear to auscultation and percussion. CARDIAC: Normal S1, S2 with no gallops. Systolic murmur positive. ABDOMEN: Soft. Bowel sounds normal. No organomegaly. No abdominal bruits. Extremities: reveal no edema. No clubbing or cyanosis Neurologically awake, alert, oriented x3 able to move all extremities while in bed.. No gross focal deficits noted Skin: No rash or skin lesions. Psychiatric: Coperative. Nonsuicidal Musculoskeletal: No joint swelling or deformity. Assessment and Plan Assessment: Status post right total knee arthroplasty postoperative day 0 COPD on home oxygen Obstructive sleep apnea on CPAP at night Hyperlipidemia Hypertension Diabetes type 2 nonslip History of bladder cancer status post surgery Prior history of left knee arthroplasty Prior history of smoking Morbid obesity with BMI of 47.3 GI and DVT prophylaxis as per primary team Plan: Patient will be continued on DuoNebs and insulin sliding scale. Restart blood pressure medications and titrate dose as tolerated. Encourage incentive spirometry. Continue with CPAP at night. PT OT was consulted. Ordered CBC and BMP tomorrow. Will continue to follow and further recommendations based on the clinical course. Thank you kindly for your consult.
[2024-04-19 06:13] LABS: Glucose,Whole Blood 145 mg/dL (70-110)
--- NOTE | 2024-04-19 07:11 | P.PN ---
Subjective Progress Note Date: 04/19/24 This is an 83-year-old male who is status post right total knee arthroplasty. This is postoperative day #1 and patient is seen and evaluated at bedside today. Patient states that his pain is well-controlled and he denies any new complaints today. Objective - Vital Signs Vital signs: Vital Signs Temp 98.4 F 04/19/24 02:00 Pulse 76 04/19/24 02:00 Resp 13 04/19/24 02:00 BP 128/73 04/19/24 02:00 Pulse Ox 95 04/19/24 02:00 FiO2 Intake & Output 04/18/24 04/19/24 04/19/24 18:59 06:59 18:59 Intake Total 801 940 Output Total 50 Balance 751 940 Weight 132.9 kg Intake: IV 801 Intake, IV Titration 940 Amount Sodium Chloride 0.9% 1, 840 000 ml @ 70 mls/hr IV . [id number] [facility] Rx#:[id number] ceFAZolin 3 gm In Sodium 100 Chloride 0.9% 100 ml @ 200 mls/hr IVPB Q8H [facility] Rx#:[id number] Output: Estimated Blood Loss 50 Other: Voiding Method Toilet # Voids 1 3 - Exam Vital signs are stable. Patient is in no acute distress and is alert and oriented 3. Calf is soft and nontender to palpation. Dressing is clean, dry, and intact. Patient has full foot and ankle motion without pain or difficulty. Sensation intact. Neurovascular status and circulatory status are intact. - Labs Labs: Abnormal Lab Results - Last 24 Hours (Table) 04/19/24 Range/Units 06:10 POC Glucose (mg/dL) 145 H (70-110) mg/dL Assessment and Plan (1) Osteoarthritis of right knee Current Visit: Yes Status: Acute Code(s): M17.11 - UNILATERAL PRIMARY OSTEOARTHRITIS, RIGHT KNEE SNOMED Code(s): 972431304273876 (2) S/P total knee arthroplasty Current Visit: Yes Status: Acute Code(s): Z96.659 - PRESENCE OF UNSPECIFIED ARTIFICIAL KNEE JOINT SNOMED Code(s): 3477825860729 Plan: #1 Continue with routine postoperative care and pain control, leave dressing in place for 7 days. #2 Anticoagulation with aspirin. #3 Physical therapy today. #4 Appreciate input from internal medicine. #5 Anticipate discharge home with home care in the next 24-48 hours.
[2024-04-19] MEDS: POTASSIUM CHLORIDE ER 10 MEQ TAB.ER.PRT PO SCH (08:11)
[2024-04-19] MEDS: DILTIAZEM CD 120 MG CAP.ER.24H PO SCH (08:11)
[2024-04-19] MEDS: ATORVASTATIN 20 MG TAB PO SCH (08:11)
[2024-04-19] MEDS: FINASTERIDE 5 MG TAB PO SCH (08:11)
[2024-04-19] MEDS: FUROSEMIDE 40 MG TAB PO SCH (08:11)
[2024-04-19 08:23] LABS: Basophils # (A) 0.04 X 10*3/uL (0.00-0.10); Basophils % (A) 0.3 %; Eosinophils # (A) 0.15 X 10*3/uL (0.04-0.35); Eosinophils % (A) 1.3 %; HCT 35.2 % (39.6-50.0); HGB 11.5 g/dL (13.0-17.0); Lymphocytes # (A) 1.29 X 10*3/uL (0.90-5.00); MCHC 32.7 g/dL (32.0-37.0); MCV 94.9 FL (80.0-97.0); Mean Platelet Volume 9.5 FL (9.5-12.2); Monocytes # (A) 1.05 X 10*3/uL (0.20-1.00); Monocytes % (A) 8.9 %; NRBC Per 100 WBC 0 X 10*3/uL (0.00-0.01); Neutrophils # (A) 9.16 X 10*3/uL (1.80-7.70); Neutrophils % (A) 78.1 %; Platelet Count 213 X 10*3/uL (140-440); RBC 3.71 X 10*6/uL (4.40-5.60); RDW 13.1 % (11.5-14.5); WBC 11.74 X 10*3/uL (4.50-10.00)
[2024-04-19 08:27] LABS: BUN/Creat Ratio 17.42 Ratio (12.00-20.00); Blood Urea Nitrogen 20.9 mg/dL (9.0-27.0); Calcium 8.4 mg/dL (8.7-10.3); Carbon Dioxide 21.3 mmol/L (21.6-31.8); Chloride 104 mmol/L (96-109); Glucose 144 mg/dL (70-110); Potassium 4.9 mmol/L (3.5-5.5); Sodium 134 mmol/L (135-145)
--- NOTE | 2024-04-19 09:59 | P.PN ---
Progress Note - Text 04/19/24 638am 83-year-old male status post total knee replacement. Patient has an On-Q pump for postop pain control with a solution running at 8 cc an hour with a VAS of 6. Dressing clean dry and intact. Plan to continue On-Q pump infusion
[2024-04-19 11:12] LABS: Glucose,Whole Blood 157 mg/dL (70-110)
[2024-04-19 16:32] LABS: Glucose,Whole Blood 153 mg/dL (70-110)
[2024-04-19 20:53] LABS: Glucose,Whole Blood 113 mg/dL (70-110)
--- NOTE | 2024-04-20 03:35 | P.PN ---
Subjective Progress Note Date: 04/19/24 Reason for Consult Consult date: 04/18/24 Medical management - Chief Complaint Right knee arthroplasty - History of Present Illness Patient is a 83-year-old male with a past medical history of COPD on oxygen via nasal cannula, obstructive sleep apnea on CPAP at home patient is, hypertension, diabetes type 2 [id number], history of bladder cancer, prior history of smoking was admitted to the hospital for elective right total knee arthroplasty. Patient tolerated the procedure very well. Postoperatively patient was receiving oxygen via nasal cannula at 6 L. Currently down to 2 L via nasal cannula. Denied any complaints of chest pain or shortness of breath. No nausea vomiting abdominal pain or diarrhea. No cough or sputum production. Laboratory data is not available at this time. 04/19/2024 Patient is seen in follow-up status post right total knee arthroplasty currently sitting up in the chair. Patient with some generalized weakness and pain being reevaluated by physical therapy tomorrow and is being monitored overnight for pain management. Patient chronically wears oxygen outpatient currently maintained on 2 to 3 L and continues on breathing treatments and other home medications. Patient is afebrile and denies chest pain or shortness of breath. Patient does report to using a CPAP at night. Review of systems: Constitutional: No reports of fatigue, fever, or chills Cardiovascular: No reports of chest pain or palpitations Respiratory: No reports of shortness of breath or cough GI: No reports of nausea, vomiting, or diarrhea : No reports of dysuria or retention Neurovascular: reports of generalized weakness and some continued right knee pain All medications have been reviewed Physical exam: PHYSICAL EXAMINATION: Patient is sitting up in the chair, no acute distress, awake alert and oriented. Elderly appearing morbidly obese.. HEENT: Normocephalic. Neck is supple. Pupils reactive. Nostrils clear. Oral cavity is moist. Neck reveals no JVD, carotid bruits, or thyromegaly. CHEST EXAMINATION: Trachea is central. Symmetrical expansion. Bibasilar diminis hed sounds. Lung lucero clear to auscultation and percussion. CARDIAC: Normal S1, S2 with no gallops. Systolic murmur positive. ABDOMEN: Soft. Obese bowel sounds normal. No organomegaly. No abdominal bruits. Extremities: reveal no edema. No clubbing or cyanosis some mild right lower extremity swelling noted, surgical dressing is dry and intact Neurologically awake, alert, oriented x3 able to move all extremities while in bed.. No gross focal deficits noted Skin: No rash or skin lesions. Psychiatric: Cooperative. Non-suicidal Musculoskeletal: No joint swelling or deformity. Assessment: Status post right total knee arthroplasty COPD on home oxygen Chronic hypoxic respiratory failure secondary to above Obstructive sleep apnea on CPAP at night Hyperlipidemia Hypertension Diabetes type 2 nonslip History of bladder cancer status post surgery Prior history of left knee arthroplasty Prior history of smoking Morbid obesity with BMI of 47.3 GI and DVT prophylaxis as per primary team Full code Plan: Patient will be continued on DuoNebs and insulin sliding scale. Restart blood pressure medications and titrate dose as tolerated. Encourage incentive spirometry use at least 10 times every hour at night. Patient is maintained on chronic oxygen supplements. Continue with CPAP at night. PT OT was consulted and following. Patient had increased weakness and pain and will be reevaluated and attempt stairs tomorrow. Appropriate home medications reviewed and resumed Will continue to follow with orthopedics during hospitalization. Thank you kindly for this consultation. The impression and plan of care has been dictated by Yolanda Salazar, Nurse Practitioner as directed. Dr. Balbina MD I have performed a history and examination and MDM of this patient, discussed the same with the dictator, and agree with the dictator's assessment and plan as written ,documented as a scribe. Based on total visit time, I have performed more than 50% of the visit. Objective - Vital Signs Vital signs: Vital Signs Temp 98.5 F 04/19/24 07:29 Pulse 85 04/19/24 07:29 Resp 16 04/19/24 07:29 BP 137/69 04/19/24 07:29 Pulse Ox 93 L 04/19/24 07:29 FiO2 Intake & Output 04/18/24 04/19/24 04/19/24 18:59 06:59 18:59 Intake Total 801 940 Output Total 50 Balance 751 940 Weight 132.9 kg Intake: IV 801 Intake, IV Titration 940 Amount Sodium Chloride 0.9% 1, 840 000 ml @ 70 mls/hr IV . [id number] [facility] Rx#:[id number] ceFAZolin 3 gm In Sodium 100 Chloride 0.9% 100 ml @ 200 mls/hr IVPB Q8H [facility] Rx#:[id number] Output: Estimated Blood Loss 50 Other: Voiding Method Toilet # Voids 1 3 - Labs CBC & Chem 7: 04/19/24 03:38 04/19/24 03:38 Labs: Abnormal Lab Results - Last 24 Hours (Table) 04/19/24 04/19/24 04/19/24 Range/Units 03:38 03:38 06:10 WBC 11.74 H (4.50-10.00) X 10*3/uL RBC 3.71 L (4.40-5.60) X 10*6/uL Hgb 11.5 L (13.0-17.0) g/dL Hct 35.2 L (39.6-50.0) % Immature Gran # 0.05 H (0.00-0.04) X 10*3/uL Neutrophils # 9.16 H (1.80-7.70) X 10*3/uL Monocytes # 1.05 H (0.20-1.00) X 10*3/uL Sodium 134 L (135-145) mmol/L Carbon Dioxide 21.3 L (21.6-31.8) mmol/L Glucose 144 H (70-110) mg/dL POC Glucose (mg/dL) 145 H (70-110) mg/dL Calcium 8.4 L (8.7-10.3) mg/dL
[2024-04-20 06:48] LABS: Glucose,Whole Blood 120 mg/dL (70-110)
[2024-04-20 08:33] VITALS: RESP 16
--- NOTE | 2024-04-20 11:10 | P.DS ---
Providers Expected date of discharge: 04/20/24 Attending physician: Jered Finch Consults: 04/18/24 08:49 Consult Physician Routine Consulting Provider: Nancy Corrales Consult Reason/Comments: medical management Do you want consulting provider notified?: Yes Primary care physician: Sathya Finn - Discharge Diagnosis(es) (1) Osteoarthritis of right knee Current Visit: Yes Status: Acute (2) S/P total knee arthroplasty Current Visit: Yes Status: Acute Hospital Course: This is an 83-year-old male who was last seen with complaint of continued right knee pain. The patient has a known history of degenerative arthritis of the right knee and presents to discuss surgical options. After discussion and consideration the patient elects to proceed with total right knee arthroplasty. The patient is seen preoperatively by his primary care physician and cleared for surgery. The patient is admitted to [facility] for total right knee arthroplasty. The procedures performed without complication or sequelae. Patient is doing well postoperatively. Vital signs are stable at discharge. Labs are stable at discharge. the patient is ambulating well with walker with minimal assistance. The patient is discharged to patient rehab on postop day # 2 pending medical clearance. Please see orders and refer to the med rec for accurate list of medications. Patient Condition at Discharge: Good Plan - Discharge Summary Discharge Rx Participant: Yes New Discharge Prescriptions: New Sennosides [Senokot] 2 tab PO DAILY PRN #60 tablet PRN Reason: Constipation Aspirin 325 mg PO BID #60 tab HYDROcodone/APAP 7.5-325MG [[place] 7.5-325] 1 - 2 tab PO Q6HR PRN #32 tab PRN Reason: Pain No Action Multivitamins, Thera [Multivitamin (formulary)] 1 tab PO DAILY Finasteride [Proscar] 5 mg PO DAILY Glucosam/[place]-Msm1/C/Storm/Bosw [Glucosamine-Chondroitin Tablet] 1 tab PO DAILY Mv-Mn/C/Glutamin/Lysin/Exve859 [Airborne Gummies] 1 tab PO DAILY Albuterol Sulfate [Proair Hfa] 1 - 2 puff INHALATION RT-Q6H PRN PRN Reason: Shortness Of Breath metFORMIN HCL ER [Glucophage XR] 1,000 mg PO W/SUPPER Potassium Chloride ER [K-Dur 10] 10 meq PO DAILY lisinopriL [Zestril] 10 mg PO BID dilTIAZem HCL [Cardizem CD] 120 mg PO DAILY guaiFENesin [Mucinex] 600 mg PO Q12HR PRN PRN Reason: Cough Atorvastatin [Lipitor] 20 mg PO DAILY traMADol HCL 50 mg PO Q4-6H PRN PRN Reason: Pain Sertraline [Zoloft] 50 mg PO HS Aspirin [[place] Aspirin EC] 81 mg PO DAILY Furosemide [Lasix] 40 mg PO DAILY Fluticasone/Umeclidin/Vilanter [Trelegy Ellipta 100-62.5-25] 1 inhalation INHALATION HS Semaglutide [Ozempic] 0.25 mg SQ Q7D Discharge Medication List Finasteride [Proscar] 5 mg PO DAILY 11/22/14 [History] Multivitamins, Thera [Multivitamin (formulary)] 1 tab PO DAILY 11/22/14 [History] Glucosam/[place]-Msm1/C/Storm/Bosw [Glucosamine-Chondroitin Tablet] 1 tab PO DAILY 03/08/17 [History] Mv-Mn/C/Glutamin/Lysin/Ejup705 [Airborne Gummies] 1 tab PO DAILY 03/08/17 [History] Albuterol Sulfate [Proair Hfa] 1 - 2 puff INHALATION RT-Q6H PRN 04/15/20 [H istory] Atorvastatin [Lipitor] 20 mg PO DAILY 06/05/21 [History] traMADol HCL 50 mg PO Q4-6H PRN 10/06/23 [History] Potassium Chloride ER [K-Dur 10] 10 meq PO DAILY 12/03/23 [History] Sertraline [Zoloft] 50 mg PO HS 12/03/23 [History] dilTIAZem HCL [Cardizem CD] 120 mg PO DAILY 12/03/23 [History] lisinopriL [Zestril] 10 mg PO BID 12/03/23 [History] metFORMIN HCL ER [Glucophage XR] 1,000 mg PO W/SUPPER 12/03/23 [History] Aspirin [[place] Aspirin EC] 81 mg PO DAILY 04/11/24 [History] Fluticasone/Umeclidin/Vilanter [Trelegy Ellipta 100-62.5-25] 1 inhalation INHALATION HS 04/11/24 [History] Furosemide [Lasix] 40 mg PO DAILY 04/11/24 [History] Semaglutide [Ozempic] 0.25 mg SQ Q7D 04/11/24 [History] guaiFENesin [Mucinex] 600 mg PO Q12HR PRN 04/11/24 [History] Aspirin 325 mg PO BID #60 tab 04/18/24 [Rx] Sennosides [Senokot] 2 tab PO DAILY PRN #60 tablet 04/18/24 [Rx] HYDROcodone/APAP 7.5-325MG [[place] 7.5-325] 1 - 2 tab PO Q6HR PRN #32 tab 04/20/24 [Rx] Follow up Appointment(s)/Referral(s): [facility],Equipment [NON-STAFF] - As Needed (Call [facility] once home to arrange delivery of the Continuous Passive Motion (CPM) machine. ) [facility] [NON-STAFF] - 1-2 Days ([facility] will call you to schedule your in home nursing and physical therapy visits. ) Jered Finch DO [Doctor of Osteopathic Medicine] - 05/01/24 1:30 pm Activity/Diet/Wound Care/Special Instructions: Weightbearing as tolerated with a walker. CPM 5-6h daily as tolerated. Leave dressing intact. Dressing may be removed by home care nurse or by patient in 7 days. Then change dressing twice daily until follow up. May shower with initial dressing intact and after removal. If dressing become saturated, please remove. Recommend use of compression stockings daily until follow up to help prevent swelling and blood clots. May remove at night before sleeping. Please take aspirin 325mg twice daily for 30 days to prevent blood clots. Please follow up with [facility] and call with any questions or concerns, . Discharge Disposition: HOME WITH HOME HEALTH SERVICES
[2024-04-20 11:17] LABS: Glucose,Whole Blood 112 mg/dL (70-110)
[2024-04-20 13:57] VITALS: BP 103/58; TEMP 97.6
[2024-04-20 15:27] VITALS: PULSE 84
--- NOTE | 2024-04-22 08:53 | P.PN ---
Subjective Progress Note Date: 04/20/24 Reason for Consult Consult date: 04/18/24 Medical management - Chief Complaint Right knee arthroplasty - History of Present Illness Patient is a 83-year-old male with a past medical history of COPD on oxygen via nasal cannula, obstructive sleep apnea on CPAP at home patient is, hypertension, diabetes type 2 [id number], history of bladder cancer, prior history of smoking was admitted to the hospital for elective right total knee arthroplasty. Patient tolerated the procedure very well. Postoperatively patient was receiving oxygen via nasal cannula at 6 L. Currently down to 2 L via nasal cannula. Denied any complaints of chest pain or shortness of breath. No nausea vomiting abdominal pain or diarrhea. No cough or sputum production. Laboratory data is not available at this time. 04/19/2024 Patient is seen in follow-up status post right total knee arthroplasty currently sitting up in the chair. Patient with some generalized weakness and pain being reevaluated by physical therapy tomorrow and is being monitored overnight for pain management. Patient chronically wears oxygen outpatient currently maintained on 2 to 3 L and continues on breathing treatments and other home medications. Patient is afebrile and denies chest pain or shortness of breath. Patient does report to using a CPAP at night. 04/20/2024 Patient is seen in follow-up this morning with no acute overnight issues noted. Per case management patient was concerned with going home and would like to go to rehab. Patient has been accepted by [facility] and has submitted for insurance authorization. Home medications reviewed and resumed as appropriate and patient is medically stable once cleared by orthopedics for discharge to [facility]. Patient to continue with CPAP at night and continued oxygen supplementation. Review of systems: Constitutional: No reports of fatigue, fever, or chills Cardiovascular: No reports of chest pain or palpitations Respiratory: No reports of shortness of breath or cough GI: No reports of nausea, vomiting, or diarrhea : No reports of dysuria or retention Neurovascular: reports of generalized weakness and some continued right knee pain All medications have been reviewed Physical exam: PHYSICAL EXAMINATION: Patient is sitting up in the chair, no acute distress, awake alert and oriented. Elderly appearing morbidly obese.. HEENT: Normocephalic. Neck is supple. Pupils reactive. Nostrils clear. Oral cavity is moist. Neck reveals no JVD, carotid bruits, or thyromegaly. CHEST EXAMINATION: Trachea is central. Symmetrical expansion. Bibasilar diminished sounds. Lung lucero clear to auscultation and percussion. CARDIAC: Normal S1, S2 with no gallops. Systolic murmur positive. ABDOMEN: Soft. Obese bowel sounds normal. No organomegaly. No abdominal bruits. Extremities: reveal no edema. No clubbing or cyanosis some mild right lower extremity swelling noted, surgical dressing is dry and intact Neurologically awake, alert, oriented x3 able to move all extremities while in bed.. No gross focal deficits noted Skin: No rash or skin lesions. Psychiatric: Cooperative. Non-suicidal Musculoskeletal: No joint swelling or deformity. Assessment: Status post right total knee arthroplasty COPD on home oxygen Chronic hypoxic respiratory failure secondary to above Obstructive sleep apnea on CPAP at night Hyperlipidemia Hypertension Diabetes type 2 nonslip History of bladder cancer status post surgery Prior history of left knee arthroplasty Prior history of smoking Morbid obesity with BMI of 47.3 GI and DVT prophylaxis as per primary team Full code Plan: Patient will be continued on DuoNebs and insulin sliding scale. Home medications reviewed and resumed as appropriate. Encourage incentive spirometry use at least 10 times every hour at night. Patient is maintained on chronic oxygen supplements. Continue with CPAP at night. Initially patient was planning on going home although is concerned and high risk for falls would like to go to rehab. Patient was accepted by [facility] and has received insurance authorization. Patient will be discharged today. Patient is medically stable once cleared by orthopedics Will continue to follow with orthopedics during hospitalization. Thank you kindly for this consultation. The impression and plan of care has been dictated by Yolanda Salazar, Nurse Practitioner as directed. Dr. Antoni MD I have performed a history and examination and MDM of this patient, discussed the same with the dictator, and agree with the dictator's assessment and plan as written ,documented as a scribe. Based on total visit time, I have performed more than 50% of the visit. Objective - Vital Signs Vital signs: Vital Signs Temp 98.2 F 04/20/24 07:03 Pulse 84 04/20/24 08:38 Resp 16 04/20/24 08:38 BP 99/53 04/20/24 07:03 Pulse Ox 94 L 04/20/24 08:31 FiO2 Intake & Output 10/30/24 10/31/24 10/31/24 18:59 06:59 18:59 Other: Voiding Method Toilet # Voids 4 1 # Bowel Movements 1 - Labs CBC & Chem 7: 04/19/24 03:38 04/19/24 03:38 Labs: Abnormal Lab Results - Last 24 Hours (Table) 04/19/24 04/19/24 04/19/24 Range/Units 11:11 16:31 20:51 POC Glucose (mg/dL) 157 H 153 H 113 H (70-110) mg/dL 04/20/24 Range/Units 06:45 POC Glucose (mg/dL) 120 H (70-110) mg/dL
== END 2024-04-20 16:25 | disposition home health service (06) ==
LOC: OR 06:54 → 4SSUR 10:42 → OR 04-20 16:25
PROVIDERS: ATTEND Orthopaedic Surgery
DX: M17.11 Unilateral primary osteoarthritis, right knee (principal)
CPT/HCPCS: 94640 ×6; 94760; 97161; 97535; 97166; 64999; 64448; 80048; 85025; 83036; 73560; 27447; C1713; C1776; C1751; S0138 ×2; J2250; J0690 ×3; J2405; J3010; J2795; J1171

== ENCOUNTER → 2024-06-08 | Outpatient (CLI) | payer MEDICARE ==
[2024-06-08 14:14] LABS: African American GFR (CKD) >90 (>60 ml/min/1.73 sqM); Blood Urea Nitrogen 23 mg/dL (9-20); Non-African American GFR(CKD) 80 (>60 ml/min/1.73 sqM)
--- NOTE | 2024-06-08 15:29 | CT ---
EXAMINATION TYPE: CT abdomen pelvis w con CT DLP: 2201 mGycm, Automated exposure control for dose reduction was used. DATE OF EXAM: 06/08/2024 3:20 PM COMPARISON: CT chest 03/14/2024, CT chest 12/17/2023, CT urogram 10/08/2022, CT abdomen and pelvis 04/15 CLINICAL INDICATION:Male, 83 years old with history of C67.9 BLADDER CANCER; BLADDER CA TECHNIQUE: Standard CT of the abdomen and pelvis following the administration of 100 cc of Isovue 3 00 IV contrast material and oral contrast. Coronal and sagittal reformats were performed. FINDINGS: LOWER CHEST: Posterior dependent subsegmental atelectasis is noted. Mild cardiomegaly. ABDOMEN LIVER: Unremarkable GALLBLADDER AND BILE DUCTS: The gallbladder is surgically absent. Stable prominent extrahepatic bile duct likely related to cholecystectomy. PANCREAS: Unremarkable. SPLEEN: Unremarkable. ADRENAL GLANDS: Unremarkable. KIDNEYS AND URETERS: No evidence of hydronephrosis or renal calculus. The kidneys enhance symmetrical ly. Contrast is demonstrated within both collecting systems on the delayed phase. Stable right renal subcentimeter hypodense focus which is too small to characterize but likely represents a cyst. PELVIS BLADDER: Unremarkable appearance. No focal thickening definitively identified. REPRODUCTIVE: Coarse calcifications of the prostate gland are identified. ABDOMEN & PELVIS STOMACH AND BOWEL: Stomach and duodenum are unremarkablethe appendix is within normal limits. Enteric contrast reaches the mid small bowel. No focal bowel wall thickening or surrounding inflammatory lisa nges. Distal colonic diverticulosis without evidence for acute diverticulitis. No evidence of bowel o bstruction. PERITONEUM: No evidence of pneumoperitoneum or free fluid. VASCULATURE: Mild atherosclerotic calcifications are present throughout the abdominal aorta and its b ranches. No evidence of aortic aneurysm. MUSCULOSKELETAL: No acute osseous abnormalities. Multilevel degenerative disc disease. 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 LYMPH NODES: No evidence for lymphadenopathy. SOFT TISSUE/ABDOMINAL WALL: Unremarkable IMPRESSION: 1. No CT evidence for definitive recurrence or metastatic disease within the abdomen and pelvis. 2. Colonic diverticulosis without evidence for acute diverticulitis. [facility], , 06/08/2024 3:27 PM
== END | disposition home or self-care (01) ==
LOC: RADCTMAIN 13:18
PROVIDERS: ATTEND Urology
DX: C67.9 Malignant neoplasm of bladder, unspecified (principal); K57.30 Diverticulosis of large intestine without perforation or abscess without bleeding; Z85.51 Personal history of malignant neoplasm of bladder
CPT/HCPCS: 82565; 84520; 74177; 36415; Q9967